=== PATIENT | female | born 1950 | race Caucasian/White ===

== ENCOUNTER 2016-12-25 19:39 | Emergency (ER) | payer MEDICARE ==
[2016-12-25] MEDS ORDERED: ONDANSETRON HCL IV 4 MG/2 ML VIAL IVP ONE (20:06)
[2016-12-25] MEDS: HYDROMORPHONE HCL 1 MG/ML CPJ IVP ONE ×2 (20:15→22:02)
[2016-12-25] MEDS ORDERED: Diph,Pert(Acell),Tet Vac 0.5 ML SYR IM ONE (21:30)
--- NOTE | 2016-12-25 21:30 | Emergency Department Record ---
History of Present Illness - General Chief Complaint: Fall Injury Stated Complaint: FALL Time Seen by Provider: 12/25/16 20:04 Source: Patient, Family, EMS Mode of Arrival: EMS Limitations: No limitations - History of Present Illness Initial Comments: pt tripped over dog and injured her r shoulder and hit her head. no loc. no numbness Onset/Timin -: Hour(s) Fall From: Standing When Fall Occurred: Just prior to arrival Fall Witnessed: Yes, by family Place Fall Occurred: Home Loss of Consciousness: None Prolonged Down Time?: No Symptoms Prior to Fall: None Location: Head, Chest, Back Location - Extremities: Right: Arm Severity: Severe Severity scale (1-10): 7 Quality: Sharp, Stabbing Context: Tripped/slipped Associated Symptoms: Headache - [place] Coma Scale Eye Response: (4) Open spontaneously Motor Response: (6) Obeys commands Verbal Response: (5) Oriented Domenic Total: 15 - Related Data Previous Rx's Medication Instructions Recorded Hydrocodone/Acetaminophen [[place] 1 tab PO Q6H PRN #10 tab 12/25/16 5mg/325mg] Allergies Allergy/AdvReac Type Severity Reaction Status Date / Time infliximab [From REMICADE] Allergy Unknown ANAPHYLAXIS Unverified 09/27/16 13:56 meperidine Allergy Unknown ANAPHYLAXIS Unverified 09/27/16 13:56 pantoprazole Allergy Unknown HIVES Unverified 09/27/16 13:56 Penicillins [PENICILLINS] Allergy Unknown ANAPHYLAXIS Unverified 09/27/16 13:56 prochlorperazine Allergy Unknown loss of Unverified 09/27/16 13:56 muscle control Proton Pump Inhibitors Allergy Unknown HIVES Unverified 09/27/16 13:56 tramadol HCl [From ULTRAM] Allergy Unknown hallucinati Unverified 09/27/16 13:56 ons Travel Screening - Travel/Exposure Within Last 30 Days Have you traveled within the last 30 days?: No - Travel/Exposure Within Last Year Have you traveled outside the [place] in the last year?: No - Additonal Travel Details Have you been exposed to anyone with a communicable illness?: No Review of Systems Reviewed: No additional complaints except as noted below Constitutional: Reports: As per HPI. Denies: Chills, Fever, Malaise, Night sweats, Weakness, Weight change Eyes: Reports: As per HPI. Denies: Eye discharge, Eye pain, Photophobia, Vision change ENT: Reports: As per HPI. Denies: Congestion, Dental pain, Ear pain, Epistaxis , Hearing loss, Throat pain Respiratory: Reports: As per HPI. Denies: Cough, Dyspnea, Hemoptysis, Stridor, Wheezes Cardiovascular: Reports: As per HPI. Denies: Arrhythmia, Chest pain, Dyspnea on exertion, Edema, Murmurs, Orthopnea, Palpitations, Paroxysmal nocturnal dyspnea, Rheumatic Fever, Syncope Endocrine: Reports: As per HPI. Denies: Fatigue, Heat or cold intolerance, Polydipsia, Polyuria Gastrointestinal: Reports: As per HPI. Denies: Abdominal pain, Constipation, Diarrhea, Hematemesis, Hematochezia, Melena, Nausea, Vomiting Genitourinary: Reports: As per HPI. Denies: Abnormal menses, Discharge, Dyspareunia, Dysuria, Frequency, Hematuria, Incontinence, Retention, Urgency Musculoskeletal: Reports: As per HPI. Denies: Arthralgia, Back pain, Gout, Joint swelling, Myalgia, Neck pain Skin: Reports: As per HPI. Denies: Bruising, Change in color, Change in hair/ nails, Lesions, Pruritus, Rash Neurological: Reports: As per HPI. Denies: Abnormal gait, Confusion, Headache, Numbness, Paresthesias, Seizure, Tingling, Tremors, Vertigo, Weakness Psychiatric: Reports: As per HPI. Denies: Anxiety, Auditory hallucinations, Depression, Homicidal thoughts, Suicidal thoughts, Visual hallucinations Hematological/Lymphatic: Reports: As per HPI. Denies: Anemia, Blood Clots, Easy bleeding, Easy bruising, Swollen glands Past Medical History - SOCIAL HISTORY Smoking Status: Former smoker - RESPIRATORY Hx Respiratory Disorders: Yes Hx Asthma: Yes Hx Bronchitis: Yes Hx COPD: Yes Hx Dyspnea: Yes Hx Pneumonia: Yes Hx Pulmonary Embolism: No Hx Sleep Apnea: Yes Hx Tuberculosis: No Hx of CPAP: Yes - CARDIOVASCULAR Hx Cardio Disorders: No Hx Hypertension: Yes - NEURO Hx Neuro Disorders: Yes Hx Headaches: Yes - GI Hx GI Disorders: Yes Hx Crohn's Disease: Yes Hx GI Bleed: Yes Hx Rectal Bleeding: Yes Hx Ulcer: Yes - Hx Genitourinary Disorders: No - ENDOCRINE Hx Endocrine Disorders: Yes Hx Diabetes: Yes (takes po meds) Hx Thyroid Disease: No - MUSCULOSKELETAL Hx Musculoskeletal Disorders: Yes Hx Arthritis: Yes Hx Fibromyalgia: Yes Hx Musculoskeletal Disease: Yes Comment:: knees and hips bad - PSYCH Hx Psych Problems: Yes Hx Anxiety: Yes Hx Depression: Yes - HEMATOLOGY/ONCOLOGY Hx Hematology/Oncology Disorders: No Family Medical History Any Significant Family History?: Yes Hx Cancer: Mother, Brother/Sister, Grandparents Hx Heart Disease: Father Hx Resp Disorders: Brother/Sister, Grandparents Physical Exam - General General Appearance: Alert, Oriented x3, Cooperative, Moderate distress - Head Head exam: Normal inspection Image of Face/Head: 1 - 1.5 cm laceration - Eye Eye exam: Normal appearance, PERRL, EOMI Pupils: Normal accommodation - ENT ENT exam: Normal exam, Mucous membranes moist, Normal external ear exam, Normal orophraynx, TM's normal bilaterally Ear exam: Normal external inspection. negative: External canal tenderness Nasal Exam: Normal inspection. negative: Discharge, Sinus tenderness Mouth exam: Normal external inspection, Tongue normal Teeth exam: Normal inspection. negative: Dental caries Throat exam: Normal inspection. negative: Tonsillar erythema, Tonsillar exudate - Neck Neck exam: Normal inspection, Full ROM. negative: Tenderness - Respiratory Respiratory exam: Normal lung sounds bilaterally. negative: Respiratory distress - Cardiovascular Cardiovascular Exam: Regular rate, Normal rhythm, Normal heart sounds - GI/Abdominal GI/Abdominal exam: Soft, Normal bowel sounds. negative: Tenderness - Rectal Rectal exam: Deferred - exam: Deferred - Extremities Extremities exam: Normal inspection, Normal capillary refill, Tenderness. negative: Full ROM Image of Full Body: 1 - tender 2 - 1.5 cm laceration - Back Back exam: Reports: Normal inspection, Full ROM. Denies: Muscle spasm, Rash noted, Tenderness - Neurological Neurological exam: Alert, CN II-XII intact, Normal gait, Oriented X3 - Psychiatric Psychiatric exam: Normal affect, Normal mood - Skin Skin exam: Dry, Intact, Normal color, Warm Course Vital Signs 12/25/16 12/25/16 20:16 20:50 Pulse Rate [ 83 76 Pulse Ox Probe] Respiratory 20 20 Rate Blood Pressure 162/71 141/74 [Left Arm] Pulse Ox 97 97 - Reevaluation(s) Reevaluation #1: 12/25/16 21:30 d/w dr thompson who will see pt on friday Disposition Disposition: Discharge Clinical Impression: Laceration Fracture of humeral head Qualifiers: Encounter type: initial encounter Fracture type: closed Laterality: right Qualified Code(s): S42.291A - Other displaced fracture of upper end of right humerus, initial encounter for closed fracture Disposition: Home, Self-Care Condition: (1) Good Instructions: Fall Prevention for Older Adults (ED), Arm Fracture in Adults (ED ), Laceration (ED) Additional Instructions: suture out in 6 days. return sooner if worse. ice and elevation. follow up friday with dr thompson on friday without fail Prescriptions: Hydrocodone/Acetaminophen [[place] 5mg/325mg] 1 tab PO Q6H PRN #10 tab PRN Reason: Pain - General Referrals: RHINA THOMPSON [DOCTOR OF OSTEOPATH] - [facility] [Provider Group] Forms: Patient Portal Access Laceration - Other - Time Out Informed consent:: Informed consent obtained Confirmed first & last name, , procedure, correct site?: Yes - Location Location of laceration:: Right Laceration - Head - Time Out Informed consent:: Informed consent obtained Confirmed first & last name, , procedure, correct site?: Yes Start Date: 12/25/16 Start Time: 21:47 - Location Location of laceration:: Right Laceration located on:: Face Length of laceration:: 1.5 Length of laceration:: cm Face/Head: 1 - 1.5cm - Clean and Prep Laceration cleaning method:: Cleansed, Copious Irrigation Laceration cleaning agent:: Normal Saline - Topical Anesthetic Lidocaine dose:: 1 mL Lidocaine used:: 1% Bupivicaine dose:: 1 mL EMLA cream used?: No - Medication Medicated for procedure?: Yes Medication(s) administered:: Other Medication - Procedural Detail Foreign body in the wound?: No Undermining was preformed?: No Stent applied?: No [place] applied?: No (2 simple interrupted sutures w 6.0 ethilon)
== END 2016-12-25 22:10 | disposition home or self-care (01) ==
LOC: ER 19:39
DX: S42.291A Other displaced fracture of upper end of right humerus, initial encounter for closed fracture (principal); S01.81XA Laceration without foreign body of other part of head, initial encounter; R51 Headache; W01.0XXA Fall on same level from slipping, tripping and stumbling without subsequent striking against object, initial encounter; Y92.009 Unspecified place in unspecified non-institutional (private) residence as the place of occurrence of the external cause
CPT/HCPCS: 90715; 96374; 96376; 99284; J1170

== ENCOUNTER 2017-03-28 07:06 | Emergency (ER) | payer MEDICARE ==
[2017-03-28] MEDS ORDERED: HYDROCODONE/APAP 7.5/325MG TABLET PO ONE (07:22)
[2017-03-28] MEDS ORDERED: CLINDAMYCIN 150 MG CAP PO ONE (07:22)
--- NOTE | 2017-03-28 07:34 | Emergency Department Record ---
History of Present Illness - General Chief complaint: ENT Stated complaint: LEFT EAR PAIN Time Seen by Provider: 03/28/17 07:21 Source: Patient Mode of Arrival: Ambulatory Limitations: No limitations - History of Present Illness Initial comments: 66 yo female presents with left ear pain, drainage and this morning blood. She has allergies and felt ear pressure the last few days. When she awoke this morning there was blood on the bed sheets. No fevers. No headache. No dizziness. No NV. No significant cough. MD complaint: Ear pain Onset/Timin -: Days(s) Location: L ear Severity: Severe Severity scale (1-10): 10 Quality: Sharp, Other Consistency: Constant Improves with: None Worsens with: None Associated Symptoms: Discharge from ear - Related Data Previous Rx's Medication Instructions Recorded Hydrocodone/Acetaminophen [[place] 1 tab PO Q6H PRN #10 tab 12/25/16 5mg/325mg] Clindamycin HCl 300 mg PO Q6H #28 03/28/17 Hydrocodone/Acetaminophen [[place] 1 each PO Q6H #12 tablet 03/28/17 5-325 Tablet] Allergies Allergy/AdvReac Type Severity Reaction Status Date / Time infliximab [From REMICADE] Allergy Unknown ANAPHYLAXIS Unverified 09/27/16 13:56 meperidine Allergy Unknown ANAPHYLAXIS Unverified 09/27/16 13:56 pantoprazole Allergy Unknown HIVES Unverified 09/27/16 13:56 Penicillins [PENICILLINS] Allergy Unknown ANAPHYLAXIS Unverified 09/27/16 13:56 prochlorperazine Allergy Unknown loss of Unverified 09/27/16 13:56 muscle control Proton Pump Inhibitors Allergy Unknown HIVES Unverified 09/27/16 13:56 tramadol HCl [From ULTRAM] Allergy Unknown hallucinati Unverified 09/27/16 13:56 ons Travel Screening - Travel/Exposure Within Last 30 Days Have you traveled within the last 30 days?: No Review of Systems Constitutional: Denies: Chills, Fever, Weakness Eyes: Denies: Eye discharge, Vision change ENT: Reports: Congestion, Ear pain. Denies: Epistaxis, Hearing loss, Throat pain Respiratory: Denies: Cough, Dyspnea Cardiovascular: Denies: Chest pain, Syncope Endocrine: Denies: Fatigue Gastrointestinal: Denies: Abdominal pain, Nausea, Vomiting Genitourinary: Denies: Dysuria, Urgency Musculoskeletal: Denies: Arthralgia, Back pain, Myalgia Skin: Denies: Bruising, Change in color, Rash Neurological: Denies: Headache, Numbness, Paresthesias Psychiatric: Denies: Anxiety Hematological/Lymphatic: Denies: Easy bleeding, Easy bruising, Swollen glands Past Medical History - SOCIAL HISTORY Smoking Status: Former smoker Alcohol Use: None Drug Use: None - RESPIRATORY Hx Respiratory Disorders: Yes Hx Asthma: Yes Hx Bronchitis: Yes Hx COPD: Yes Hx Dyspnea: Yes Hx Pneumonia: Yes Hx Pulmonary Embolism: No Hx Sleep Apnea: Yes Hx Tuberculosis: No Hx of CPAP: Yes - CARDIOVASCULAR Hx Cardio Disorders: No Hx Hypertension: Yes - NEURO Hx Neuro Disorders: Yes Hx Headaches: Yes - GI Hx GI Disorders: Yes Hx Crohn's Disease: Yes Hx GI Bleed: Yes Hx Rectal Bleeding: Yes Hx Ulcer: Yes - Hx Genitourinary Disorders: No - ENDOCRINE Hx Endocrine Disorders: Yes Hx Diabetes: Yes (takes po meds) Hx Thyroid Disease: No - MUSCULOSKELETAL Hx Musculoskeletal Disorders: Yes Hx Arthritis: Yes Hx Fibromyalgia: Yes Hx Musculoskeletal Disease: Yes Comment:: knees and hips bad - PSYCH Hx Psych Problems: Yes Hx Anxiety: Yes Hx Depression: Yes - HEMATOLOGY/ONCOLOGY Hx Hematology/Oncology Disorders: No Family Medical History Any Significant Family History?: Yes Hx Cancer: Mother, Brother/Sister, Grandparents Hx Heart Disease: Father Hx Resp Disorders: Brother/Sister, Grandparents Physical Exam - General General Appearance: Alert, Oriented x3, Cooperative, No acute distress Limitations: No limitations - Head Head exam: Normal inspection - Eye Eye exam: Normal appearance, PERRL. negative: Conjunctival injection, Periorbital swelling - ENT ENT exam: Mucous membranes moist, Normal orophraynx. negative: TM's normal bilaterally (Left TM with restration, small amount of blood in the canal. No visible pus draining, no visible perforation but likely given the blood) Ear exam: negative: Auricular hematoma, Auricular trauma, External canal tenderness Nasal Exam: Normal inspection. negative: Discharge, Sinus tenderness Mouth exam: Normal external inspection, Tongue normal Teeth exam: Normal inspection. negative: Dental caries - Neck Neck exam: Normal inspection, Full ROM. negative: Lymphadenopathy, Tenderness - Respiratory Respiratory exam: negative: Respiratory distress - Cardiovascular Cardiovascular Exam: Regular rate, Normal rhythm, Normal heart sounds - Rectal Rectal exam: Deferred - exam: Deferred - Extremities Extremities exam: Normal inspection - Back Back exam: Reports: Normal inspection - Neurological Neurological exam: Alert, Normal gait, Oriented X3, Reflexes normal - Psychiatric Psychiatric exam: Normal affect, Normal mood. negative: Agitated, Anxious - Skin Skin exam: Dry, Intact, Normal color, Warm Course Vital Signs 03/28/17 07:10 Temperature 97.9 F Pulse Rate 89 Respiratory 22 Rate Blood Pressure 174/82 Pulse Ox 98 - Reevaluation(s) Reevaluation #1: The patient likely has an OM with perforation She has seen ENT in the past and was encouraged to call today Clindamycin provided in the ED 03/28/17 07:26 Disposition Disposition: Discharge Clinical Impression: Otitis media, acute with perforation of eardrum Qualifiers: Laterality: left Recurrence: not specified as recurrent Qualified Code(s): H66.012 - Acute suppurative otitis media with spontaneous rupture of ear drum, left ear Disposition: Home, Self-Care Condition: (1) Good Instructions: Otitis Media (ED) Additional Instructions: Avoid placing Qtips in the ear Return if you have fever, uncontrolled pain or any new concerns Clindamycin three times daily for 7 days Call your ENT today to schedule close follow up to ensure the healing of the left ear Prescriptions: Clindamycin HCl 300 mg PO Q6H #28 Hydrocodone/Acetaminophen [[place] 5-325 Tablet] 1 each PO Q6H #12 tablet Forms: Patient Portal Access Time of Disposition: 07:37
== END 2017-03-28 07:46 | disposition home or self-care (01) ==
LOC: ER 07:06
DX: H66.012 Acute suppurative otitis media with spontaneous rupture of ear drum, left ear (principal); J44.9 Chronic obstructive pulmonary disease, unspecified; I10 Essential (primary) hypertension
CPT/HCPCS: 99282

== ENCOUNTER 2018-07-27 15:47 | Inpatient (IN) | payer MEDICARE, OTHER ==
[2018-07-27] MEDS ORDERED: CLINDAMYCIN 600MG/50ML PREMIX 600 MG/50 ML BAG IVPB ONE (15:54)
--- NOTE | 2018-07-27 16:03 | Emergency Department Record ---
History of Present Illness - General Chief complaint: Extremity Problem Stated complaint: FEVER,CHILLS,LT LEG SWOLLEN/PAIN Time Seen by Provider: 07/27/18 15:50 Source: Patient Mode of Arrival: Ambulatory Limitations: No limitations - History of Present Illness Initial comments: 67 yo female presents with redness and swelling to the right lower leg. The redness started in the ankle area and now has spread up to the proximal right lower leg. She has psoriasis with some scabbed areas on the leg as well. She initially developed a fever of 103 yesterday. The fever comes down with Ibuprofen. She has had cellulitis in the past. PCP is the [facility] MD Complaint: Extremity pain, Extremity swelling -: Days(s) (1) Location: Right -: Yes Fever, Yes Myalgia Radiation: Distal Quality: Aching Consistency: Constant Improves with: Elevation Worsens with: Palpation, Walking Associated Symptoms: Fever, Myalgias - Related Data Allergies Allergy/AdvReac Type Severity Reaction Status Date / Time infliximab [From REMICADE] Allergy Unknown ANAPHYLAXIS Unverified 02/20/18 15:40 meperidine Allergy Unknown ANAPHYLAXIS Unverified 02/20/18 15:40 pantoprazole Allergy Unknown HIVES Unverified 02/20/18 15:40 Penicillins [PENICILLINS] Allergy Unknown ANAPHYLAXIS Unverified 02/20/18 15:40 prochlorperazine Allergy Unknown loss of Unverified 02/20/18 15:40 muscle control Proton Pump Inhibitors Allergy Unknown HIVES Unverified 02/20/18 15:40 tramadol HCl [From ULTRAM] Allergy Unknown hallucinati Unverified 02/20/18 15:40 ons Review of Systems Constitutional: Reports: Chills, Fever. Denies: Malaise, Weakness Eyes: Denies: Eye discharge, Photophobia ENT: Denies: Congestion, Throat pain Respiratory: Denies: Cough, Dyspnea Cardiovascular: Denies: Chest pain, Syncope Endocrine: Denies: Fatigue Gastrointestinal: Denies: Abdominal pain, Diarrhea, Nausea, Vomiting Genitourinary: Denies: Dysuria, Urgency Musculoskeletal: Reports: Myalgia Skin: Reports: Change in color, Rash. Denies: Bruising Neurological: Denies: Headache Psychiatric: Denies: Anxiety Hematological/Lymphatic: Denies: Blood Clots, Easy bleeding, Easy bruising, Swollen glands Past Medical History - SOCIAL HISTORY Smoking Status: Former smoker Drug Use: None - RESPIRATORY Hx Respiratory Disorders: Yes Hx Asthma: Yes Hx Bronchitis: Yes Hx COPD: Yes Hx Dyspnea: Yes Hx Pneumonia: Yes Hx Pulmonary Embolism: No Hx Sleep Apnea: Yes Hx Tuberculosis: No Hx of CPAP: Yes - CARDIOVASCULAR Hx Cardio Disorders: No Hx Hypertension: Yes - NEURO Hx Neuro Disorders: Yes Hx Headaches: Yes - GI Hx GI Disorders: Yes Hx Crohn's Disease: Yes Hx GI Bleed: Yes Hx Rectal Bleeding: Yes Hx Ulcer: Yes - Hx Genitourinary Disorders: No - ENDOCRINE Hx Endocrine Disorders: Yes Hx Diabetes: Yes (takes po meds) Hx Thyroid Disease: No - MUSCULOSKELETAL Hx Musculoskeletal Disorders: Yes Hx Arthritis: Yes Hx Fibromyalgia: Yes Hx Musculoskeletal Disease: Yes Comment:: knees and hips bad - PSYCH Hx Psych Problems: Yes Hx Anxiety: Yes Hx Depression: Yes - HEMATOLOGY/ONCOLOGY Hx Hematology/Oncology Disorders: No Family Medical History Hx Cancer: Mother, Brother/Sister, Grandparents Hx Heart Disease: Father Hx Resp Disorders: Brother/Sister, Grandparents Physical Exam - General General Appearance: Alert, Oriented x3, Cooperative, No acute distress Limitations: No limitations - Head Head exam: Atraumatic, Normal inspection - Eye Eye exam: Normal appearance. negative: Conjunctival injection, Scleral icterus - ENT ENT exam: Normal exam, Mucous membranes moist Ear exam: Normal external inspection Nasal Exam: Normal inspection Mouth exam: Normal external inspection - Neck Neck exam: Normal inspection - Respiratory Respiratory exam: Decreased breath sounds. negative: Accessory muscle use, Respiratory distress, Rhonchi, Stridor, Wheezes - Cardiovascular Cardiovascular Exam: Normal rhythm, Normal heart sounds, Tachycardia - GI/Abdominal GI/Abdominal exam: Soft. negative: Tenderness - Rectal Rectal exam: Deferred - exam: Deferred - Extremities Extremities exam: Calf tenderness, Full ROM, Normal capillary refill, Pedal edema, Tenderness. negative: Normal inspection, Joint swelling Image of Full Body: 1 - erythema and warmth, most intense medial right ankle and more faint the more proximal - Back Back exam: Reports: Normal inspection. Denies: CVA tenderness (R), CVA tenderness (L) - Neurological Neurological exam: Alert, Oriented X3 - Psychiatric Psychiatric exam: Normal affect, Normal mood - Skin Skin exam: Erythema, Rash Course - Reevaluation(s) Reevaluation #1: The CBC was reviewed No acute changes The CRP is elevated at 3.3 07/27/18 16:45 07/27/18 16:45 No acute changes on the CMP 07/27/18 16:48 The cellulitis was marked The doppler was negative for DVT I SW Dr Fitzgerald regarding admission for IV antibiotics Medical Decision Making - Lab Data Result diagrams: 07/27/18 16:03 07/27/18 16:03 Disposition Disposition: Admit Clinical Impression: Cellulitis Qualifiers: Site of cellulitis: unspecified site Qualified Code(s): L03.90 - Cellulitis, unspecified Disposition: Still a Patient at [facility] Decision to Admit: Admit from ER Decision to Admit Date: 07/27/18 Decision to Admit Time: 16:48 Condition: (1) Good Forms: Patient Portal Access Time of Disposition: 16:48 Quality - Quality Measures Quality Measures: N/A - Blood Pressure Screening Does Patient Have Any of the Following: Active Dx of HTN Blood Pressure Classification: Pre-Hypertensive BP Reading Systolic Measurement: 154 Diastolic Measurement: 86 Screening for High Blood Pressure: Patient Exclusion, Hx of HTN [[id number]]
[2018-07-27] MEDS ORDERED: HYDROCODONE/APAP 7.5/325MG TABLET PO ONE (16:11)
[2018-07-27 16:16] LABS: BASO % 0.2 % (0-6); EOS % 2.3 % (0-6); GRAN % 74.2 % (47-80); HEMATOCRIT 33.6 % (35.0-47.0); HEMOGLOBIN 10.9 gm/dl (11.6-16.0); LYMPH % 8.8 % (16-45); MEAN CELL VOLUME 85.3 fl (81-97); MEAN CORPUSCULAR HGB CONC 32.4 g/dl (32-36); MEAN PLATELET VOLUME 9.6 fl (7.4-10.4); MONO % 14.5 % (0-9); RED BLOOD COUNT 3.94 M/uL (3.80-5.40); WHITE BLOOD COUNT W/O DIFF 5.2 K/uL (4.2-12.2)
[2018-07-27 16:24] LABS: BLOOD UREA NITROGEN 8 mg/dL (8-23); CREATININE 0.5 mg/dL (0.5-0.9); EST GLOMERULAR FILTRATION RATE > 60 mL/min
[2018-07-27 16:25] LABS: TOTAL PROTEIN 7.7 g/dL (6.6-8.7)
[2018-07-27 16:27] LABS: GLUCOSE,RANDOM 125 mg/dL (74-109)
[2018-07-27 16:28] LABS: MEAN CORPUSCULAR HEMOGLOBIN 27.6 pg (27-33)
[2018-07-27 16:29] LABS: PLATELET COUNT 89 K/uL (130-400)
[2018-07-27 16:30] LABS: ALB/GLOB RATIO 0.8 (1.1-1.8); ALBUMIN 3.4 g/dL (4.0-5.0); ALKALINE PHOSPHATASE 117 U/L (35-104); ALT/SGPT 19 U/L (<33); AST/SGOT 49 U/L (10.0-35.0); C-REACTIVE PROTEIN 3.32 mg/dL (<0.5)
[2018-07-27 16:53] LABS: ERYTHROCYTE SEDIMENTATION RATE 54 mm/hr (0-30)
[2018-07-27] MEDS ORDERED: Non-Formulary MISC (Lisinopril/Hydrochlorothiazide [Lisinopril-Hctz 20-25 Mg Tab] 1 TAB) PO SCH (17:18)
[2018-07-27] MEDS ORDERED: ALBUTEROL SULFATE (0.083%) 2.5 MG/3 ML NEB INH PRN (17:18)
[2018-07-27] MEDS ORDERED: DICLOFENAC SODIUM 4 GM TP PRN (17:18)
[2018-07-27] MEDS ORDERED: IPRATROPIUM/ALBUTEROL (0.5MG/3MG) NEB INH PRN (17:18)
[2018-07-27] MEDS ORDERED: HYDROXYZINE PAMOATE 25 MG CAPSULE PO PRN (17:18)
[2018-07-27] MEDS ORDERED: CLINDAMYCIN 600MG/50ML PREMIX 600 MG/50 ML BAG IVPB SCH (17:18)
[2018-07-27] MEDS ORDERED: AMLODIPINE BESYLATE 5MG TAB PO SCH ×2 (18:00→21:00)
[2018-07-27] MEDS: HYDROCODONE/APAP 5/325MG TABLET PO PRN ×2 (18:26→23:39)
[2018-07-27] MEDS: CLINDAMYCIN 600MG/50ML PREMIX 600 MG/50 ML BAG IVPB SCH (23:40)
[2018-07-28] MEDS: ONDANSETRON HCL IV 4 MG/2 ML VIAL IVP PRN ×3 (03:55→22:15)
[2018-07-28] MEDS: IBUPROFEN 400 MG TABLET PO PRN (04:38)
[2018-07-28] MEDS ORDERED: LISINOPRIL 20 MG TABLET PO SCH ×2 (06:00→10:00)
--- NOTE | 2018-07-28 07:31 | US VENOUS DOPPLER REPORT ---
EXAM: EMERGENCY VENOUS DOPPLER ULTRASOUND OF THE RIGHT LOWER EXTREMITY HISTORY: PATIENT WOKE UP WITH FEVER, CHILLS, RIGHT ANKLE SWELLING AND PAIN, POSSIBLE DVT. TECHNIQUE: Venous Doppler ultrasound of the right lower extremity was performed with the routine venous anatomy evaluated from the level of the external iliac vein in the right inguinal region down through the calf. Color flow and spectral analysis was utilized, and supplemented with compression and flow augmentation maneuvers. Comparison: Venous Doppler ultrasound of the right lower extremity dated . FINDINGS: The venous Doppler ultrasound of the right lower extremity appears negative. Flow is seen throughout with color flow and spectral analysis Doppler. Compression and flow augmentation evident as well. No DVT identified. IMPRESSION: NEGATIVE VENOUS DOPPLER ULTRASOUND OF THE RIGHT LOWER EXTREMITY WITH NO DVT IDENTIFIED. JOB NUMBER: [id number] [facility]
[2018-07-28] MEDS: HYDROCODONE/APAP 5/325MG TABLET PO PRN (08:06)
[2018-07-28] MEDS: CLINDAMYCIN 600MG/50ML PREMIX 600 MG/50 ML BAG IVPB SCH (08:07)
[2018-07-28] MEDS ORDERED: AMLODIPINE BESYLATE 5MG TAB PO SCH (10:00)
[2018-07-28] MEDS: Non-Formulary MISC (Omeprazole [Omeprazole] 40 MG) PO SCH (10:51)
[2018-07-28] MEDS: FLUTICASONE PROPIONATE 50MCG NASAL 16 GM BTL SCH (11:10)
[2018-07-28] MEDS: ENOXAPARIN 40 MG/0.4 ML SYR SC SCH (11:11)
[2018-07-28] MEDS: VANCOMYCIN HCL 1,000 MG in DEXTROSE 5 % IN WATER 250 ML IVPB SCH ×4 (11:12→23:02)
[2018-07-28] MEDS: ONDANSETRON 4 MG ODT TABLET SL PRN (11:12)
--- NOTE | 2018-07-28 11:22 | History & Physical ---
History of Present Illness - Date of Service Date of Service for History & Physical: 07/28/18 - History of Present Illness Admitting Diagnosis: Cellulitis History of Present Illness: Temitope Jimenez is a 67 y.o. female who presented to ED on 07/27/2018 with c/o redness and swelling to the RLE. Pt reported that chills started on Friday, chills and fever on Friday07/26/2018 and then redness in ankle and proximal right lower leg with fever of 103 on Friday07/27/2018 which brought her to the ED. Pt reports that she does have psoriasis and a hx of cellulitis in the past which required IV Vanco home infusions for 1 week. PMHx includes Type II DM, HTN, Crohn's, COPD and major depressive d/o. 07/27/2018 Venous Doppler RLE = Negative C-reactive Protein 3.32 ESR 54 Blood Cultures pending 07/28/2018 Vitals: 99.7, 104, 127/69, 18, 97% on RA. Pt reports that the she doesn't feel that the cellulitis is worsening since starting the IV Clindamycin. Although she doesn't feel that it is improving either. Pt states that main area of redness and heat on proximal ankle hasn't decreased at all. Reports that her pain is fairly well controlled with [place] and Motrin but she is not comfortable enough to get any sleep. C/o nausea d/t pain medications and antibiotics, has been taking IV Zofran which allows her to get fluids and food down. Denies constipation, states she has Crohn's so she is rarely ever constipated, even with narcotic pain medication use. Travel Screening - Travel/Exposure Within Last 30 Days Have you traveled within the last 30 days?: No - Travel/Exposure Within Last Year Have you traveled outside the [place] in the last year?: No - Additonal Travel Details Have you been exposed to anyone with a communicable illness?: No - Travel Symptoms Symptom Screening: None Review of Systems Reviewed: No additional complaints except as noted below Constitutional: Reports: Fever. Denies: Malaise, Weakness Eyes: Denies: Eye discharge, Photophobia ENT: Denies: Congestion, Throat pain Respiratory: Denies: Cough, Dyspnea Cardiovascular: Denies: Chest pain, Syncope Endocrine: Reports: Fatigue Gastrointestinal: Reports: Nausea. Denies: Abdominal pain, Constipation, Vomiting Genitourinary: Denies: Dysuria, Urgency Musculoskeletal: Reports: Myalgia Skin: Reports: Change in color, Rash. Denies: Bruising Neurological: Denies: Headache Psychiatric: Denies: Anxiety Hematological/Lymphatic: Denies: Blood Clots, Easy bleeding, Easy bruising, Swollen glands Past Medical History - SOCIAL HISTORY Smoking Status: Former smoker - RESPIRATORY Hx Respiratory Disorders: Yes Hx Asthma: Yes Hx Bronchitis: Yes Hx COPD: Yes Hx Dyspnea: Yes Hx Pneumonia: Yes Hx Pulmonary Embolism: No Hx Sleep Apnea: Yes Hx Tuberculosis: No Hx of CPAP: Yes - CARDIOVASCULAR Hx Cardio Disorders: No Hx Hypertension: Yes - NEURO Hx Neuro Disorders: Yes Hx Headaches: Yes - GI Hx GI Disorders: Yes Hx Crohn's Disease: Yes Hx GI Bleed: Yes Hx Rectal Bleeding: Yes Hx Ulcer: Yes - Hx Genitourinary Disorders: No - ENDOCRINE Hx Endocrine Disorders: Yes Hx Diabetes: Yes (takes po meds) Hx Thyroid Disease: No - MUSCULOSKELETAL Hx Musculoskeletal Disorders: Yes Hx Arthritis: Yes Hx Fibromyalgia: Yes Hx Musculoskeletal Disease: Yes Comment:: knees and hips bad - PSYCH Hx Psych Problems: Yes Hx Anxiety: Yes Hx Depression: Yes - HEMATOLOGY/ONCOLOGY Hx Hematology/Oncology Disorders: No Family Medical History Any Significant Family History?: Yes Hx Cancer: Mother, Brother/Sister, Grandparents Hx Heart Disease: Father Hx Resp Disorders: Brother/Sister, Grandparents H&P Meds/Allergies - Allergies Allergies: Allergies Allergy/AdvReac Type Severity Reaction Status Date / Time infliximab [From REMICADE] Allergy Unknown ANAPHYLAXIS Unverified 02/20/18 15:40 meperidine Allergy Unknown ANAPHYLAXIS Unverified 02/20/18 15:40 pantoprazole Allergy Unknown HIVES Unverified 02/20/18 15:40 Penicillins [PENICILLINS] Allergy Unknown ANAPHYLAXIS Unverified 02/20/18 15:40 prochlorperazine Allergy Unknown loss of Unverified 02/20/18 15:40 muscle control Proton Pump Inhibitors Allergy Unknown HIVES Unverified 02/20/18 15:40 tramadol HCl [From ULTRAM] Allergy Unknown hallucinati Unverified 02/20/18 15:40 ons - Home Medications Home Medications Medication Instructions Recorded Confirmed Last Taken Albuterol Sulfate [Ventolin Hfa] 2 puff INH Q4H PRN 07/28/18 07/28/18 Unknown Fluticasone Propionate 2 spray NS DAILY 07/28/18 07/28/18 Unknown Hydroxyzine Pamoate 25 mg PO TID PRN 07/28/18 07/28/18 Unknown Lisinopril 40 mg PO DAILY 07/28/18 07/28/18 Unknown Montelukast Sodium 10 mg PO QHS 07/28/18 07/28/18 Unknown - Active Medications Active Medications: Current Medications Hydrocodone Bitart/Acetaminophen ([place] 7.5mg/325mg) 1 each PO Q6H PRN PRN Reason: PAIN - MOD TO SEVERE (5-10) Albuterol Sulfate () 2.5 mg INH RESP.Q4H.WA PRN PRN Reason: DIFFICULTY IN BREATHING Albuterol/Ipratropium (Duoneb) 3 ml INH RESP.Q6H PRN PRN Reason: WHEEZING Amlodipine Besylate (Norvasc) 10 mg PO 1800 [facility] Enoxaparin Sodium (Lovenox) 40 mg SC DAILY [facility] Fluticasone Propionate (Flonase) 2 spray NA DAILY [facility] Hydroxyzine Pamoate (Vistaril) 25 mg PO TID PRN PRN Reason: ANXIETY Vancomycin HCl 1,000 mg/ (Dextrose) 250 mls @ 250 mls/hr IVPB Q12HR [facility] Stop: 08/02/18 11:01 Vancomycin HCl 1,000 mg/ (Dextrose) 250 mls @ 250 mls/hr IVPB Q12H [facility] Stop: 08/02/18 23:01 Vancomycin HCl 1,000 mg/ (Dextrose) 250 mls @ 250 mls/hr IVPB NOW ONE Stop: 07/28/18 12:59 Ibuprofen (Motrin 400mg) 800 mg PO Q8H PRN PRN Reason: PAIN - MILD (1-4) Last Admin: 07/28/18 04:38 Dose: 800 mg Lisinopril (Zestril) 40 mg PO 0600 [facility] Montelukast Sodium (Singulair) 10 mg PO QHS [facility] Non-Formulary Medication (Omeprazole [Omeprazole]) 40 mg PO DAILYAC [facility] Last Admin: 07/28/18 10:51 Dose: Not Given Ondansetron HCl (Zofran) 4 mg IVP Q6H PRN PRN Reason: NAUSEA Last Admin: 07/28/18 03:55 Dose: 4 mg Ondansetron HCl (Zofran Odt) 4 mg SL Q6H PRN PRN Reason: NAUSEA/VOMITING Physical Exam - Vital Signs Vital Signs: Vital Signs - Last 24 Hrs Temp Pulse Pulse Resp BP BP Pulse Ox 07/28/18 09:45 97 07/28/18 06:11 99.7 F H 104 H 16 127/69 97 07/28/18 01:18 100.5 F H 94 H 18 130/80 98 07/27/18 17:56 94 H 16 07/27/18 17:18 98.1 F 94 H 18 146/83 100 07/27/18 15:53 98.2 F 107 H 24 154/86 99 - General General Appearance: Alert, Oriented x3, Cooperative, No acute distress Limitations: No limitations - Head Head exam: Atraumatic, Normal inspection - Eye Eye exam: Normal appearance. negative: Conjunctival injection, Scleral icterus - ENT ENT exam: Normal exam, Mucous membranes moist - Neck Neck exam: Normal inspection - Respiratory Respiratory exam: Normal lung sounds bilaterally. negative: Accessory muscle use, Respiratory distress, Rhonchi, Stridor, Wheezes - Cardiovascular Cardiovascular Exam: Normal rhythm, Normal heart sounds, Tachycardia Peripheral Pulses: 1+: Dorsalis Pedis (R) - GI/Abdominal GI/Abdominal exam: Soft, Normal bowel sounds. negative: Tenderness - Rectal Rectal exam: Deferred - exam: Deferred - Extremities Extremities exam: Calf tenderness, Full ROM, Normal capillary refill, Pedal edema, Tenderness (RLE). negative: Normal inspection, Joint swelling - Back Back exam: Reports: Normal inspection. Denies: CVA tenderness (R), CVA tenderness (L) - Neurological Neurological exam: Alert, Oriented X3 - Psychiatric Psychiatric exam: Normal affect, Normal mood - Skin Skin exam: Erythema, Rash Results - Labs Result Diagrams: 07/27/18 16:03 07/27/18 16:03 Labs Last 24 Hours: Laboratory Results - last 24 hr 07/27/18 07/27/18 16:03 16:03 WBC 5.2 RBC 3.94 Hgb 10.9 L Hct 33.6 L MCV 85.3 MCH 27.6 MCHC 32.4 RDW 17.0 H Plt Count 89 L MPV 9.6 Gran % 74.2 Lymphocytes % 8.8 L Monocytes % 14.5 H Eosinophils % 2.3 Basophils % 0.2 ESR 54 H Sodium 138 Potassium 3.5 Chloride 101 Carbon Dioxide 22.0 Anion Gap 15.0 BUN 8 Creatinine 0.5 Estimated GFR > 60 Random Glucose 125 H Calcium 8.8 Total Bilirubin 1.30 H AST 49 H ALT 19 Alkaline Phosphatase 117 H C-Reactive Protein 3.32 H Total Protein 7.7 Albumin 3.4 L Globulin 4.3 Albumin/Globulin Ratio 0.8 L - Imaging and Cardiology Venous US Status: Report reviewed VTE H&P Assessment - Risk for VTE Risk for VTE: Yes Risk Level: Moderate Risk Assessment Date: 07/28/18 Risk Assessment Time: 11:43 VTE Orders Placed or Will Be Placed: No VTE Reason for No Prophylaxis: Complication of Medical Care (platelet count on 07/27/18 = 89) Plan - Inpatient Certification Inpatient Certification: Admit to inpatient care: Based on my medical assessment, after consideration of patient's risk factors (age, co-morbidities and patient presenting symptoms and acuity), I expect that this patient will remain in the hospital greater than or equal to two midnights and that the services needed warrant inpatient care because: Patient Risk Factors: [Cellulitis, Age, multiple co-morbidities, recurrent cellulitis] Estimated length of stay: [48-72 hours] The patient may reasonably be expected to be discharged or transferred to a hospital within 96 hours after admission to [facility]. Services needed: [IV antibiotic therapy, pain control] Post hospital care (if known): [home] I certify that my determination is in accordance with my understanding of Medicare requirements for reasonable and necessary inpatient services. 07/28/18 11:53 - Detailed Diagnosis and Plan (1) Cellulitis Current Visit: Yes Status: Acute Qualifiers: Site of cellulitis: extremity Site of cellulitis of extremity: lower extremity Laterality: right Qualified Code(s): L03.115 - Cellulitis of right lower limb Base Code: L03.90 - CELLULITIS, UNSPECIFIED Priority: High Comment: 2017: -Erythema and Warmth regressed from original outlined margin on right posterior calf. Increased erythema and heat to right lateral malleolus. -Febrile 99.7, with Ibuprofen and [place] use. -WBC 5.2 and CRP 3.32 on 07/27/18 -Positive blood cultures = gram + cocci in clusters -D/C IV Clindamycin -Start IV Vancomycin for better coverage on gram + cocci in clusters, pharmacy to dose -Venous Doppler negative for DVT (2) Nausea Current Visit: Yes Status: Acute Base Code: R11.0 - NAUSEA Comment: 2017: -IVP Zofran q. 6 hours PRN -Ordered Zofran 4mg SL q. 6 hours PRN -Pt able to manage PO intake with zofran (3) Acute pain Current Visit: Yes Status: Acute Base Code: R52 - PAIN, UNSPECIFIED Comment: 07/28/2018 -Pt taking [place] 5/325mg q. 6 hours and Motrin 800mg q. 8 hours as needed with moderate improvement -Increase [place] to 7.5/325mg q. 6 hours PRN -Continue Motrin 800mg q. 8 hours as needed -Keep elevated (4) Full code status Current Visit: No Status: Acute Base Code: Z78.9 - OTHER SPECIFIED HEALTH STATUS Comment: 07/28/18: -Pt has full code status this admission (5) DVT prophylaxis Current Visit: Yes Status: Acute Base Code: [id number] - Comment: 07/28/2018: -Platelets 89 on 07/27/18 -No mobility concerns noted -Nursing to encourage ambulation and frequent position changes
[2018-07-28] MEDS ORDERED: VANCOMYCIN HCL 1,000 MG in DEXTROSE 5 % IN WATER 250 ML IVPB ONE ×2 (12:00)
[2018-07-28] MEDS: HYDROCODONE/APAP 7.5/325MG TABLET PO PRN (15:25)
[2018-07-28] MEDS: AMLODIPINE BESYLATE 5MG TAB PO SCH (18:35)
[2018-07-28] MEDS: MONTELUKAST SODIUM 10MG TABLET PO SCH (22:15)
[2018-07-29] MEDS: VANCOMYCIN HCL 1,000 MG in DEXTROSE 5 % IN WATER 250 ML IVPB SCH ×10 (00:16→22:59)
[2018-07-29] MEDS: HYDROCODONE/APAP 7.5/325MG TABLET PO PRN ×4 (00:16→23:05)
[2018-07-29] MEDS: HYDROXYZINE PAMOATE 25 MG CAPSULE PO PRN ×2 (00:27→23:20)
[2018-07-29] MEDS: Non-Formulary MISC (Omeprazole [Omeprazole] 40 MG) PO SCH (06:25)
[2018-07-29] MEDS: LISINOPRIL 20 MG TABLET PO SCH (06:32)
[2018-07-29 07:08] LABS: HEMOGLOBIN 9.5 gm/dl (11.6-16.0); MEAN CELL VOLUME 86.8 fl (81-97); MEAN CORPUSCULAR HEMOGLOBIN 26.6 pg (27-33); MEAN CORPUSCULAR HGB CONC 30.6 g/dl (32-36); MEAN PLATELET VOLUME 10.2 fl (7.4-10.4); PLATELET COUNT 80 K/uL (130-400); RED BLOOD COUNT 3.57 M/uL (3.80-5.40); RED CELL DISTRIBUTION WIDTH 17.1 % (11.5-14.5); WHITE BLOOD COUNT W/O DIFF 3.7 K/uL (4.2-12.2)
[2018-07-29 07:27] LABS: PLATELET ESTIMATE DECREASED (NORMAL)
[2018-07-29 07:28] LABS: HYPOCHROMIA 1+
[2018-07-29 07:30] LABS: ALB/GLOB RATIO 0.8 (1.1-1.8); ALBUMIN 3.1 g/dL (4.0-5.0); ALKALINE PHOSPHATASE 105 U/L (35-104); ALT/SGPT 16 U/L (<33); AST/SGOT 38 U/L (10.0-35.0); BLOOD UREA NITROGEN 10 mg/dL (8-23); CREATININE 0.6 mg/dL (0.5-0.9); EST GLOMERULAR FILTRATION RATE > 60 mL/min; GLUCOSE,RANDOM 108 mg/dL (74-109); TOTAL PROTEIN 7.1 g/dL (6.6-8.7)
[2018-07-29] MEDS: ONDANSETRON HCL IV 4 MG/2 ML VIAL IVP PRN (08:59)
[2018-07-29] MEDS: FLUTICASONE PROPIONATE 50MCG NASAL 16 GM BTL SCH (10:51)
[2018-07-29] MEDS: ENOXAPARIN 40 MG/0.4 ML SYR SC SCH (10:53)
[2018-07-29] MEDS: DIPHENHYDRAMINE HCL 50 MG/ML VIAL IVP PRN (11:51)
--- NOTE | 2018-07-29 12:39 | Physician Progress Note ---
Subjective - Date Date of Physician Progress Note: 07/29/18 - Subjective Subjective Comment: Pt reports that pain and redness have increased and she doesn't believe the Vanco is working. Pt reports itching and burning at IV site when Vanco is running. Reports pain at 9/10 after approximately 4 hours, cannot get comfortable. Concerned that she is going to get constipated with constant [place] use, even thought she has IBS, and requests Colace to be ordered. Reports that she has had cellulitis in her RLE in 2016. She started at [facility] and was transferred to [facility] for surgical evaluation and infectious disease consult. A review of the medical record from the hospitalization at [facility] in 2016 showed that pt had I&D of abscess, which was MSSA positive. Her IV antibiotics were changed from Vanco to Cefazolin and on d/c home, she was put on Doxycycline. Location: Right, Lower extremity Severity scale (1-10): 9 Quality: Burning, Constant Consistency: Constant, Getting worse Improves with: Medication Associated symptoms: Nausea/vomiting Objective - Vital Signs Vital Signs: Vital Signs - Last 24 Hrs Temp Pulse Pulse Resp BP Pulse Ox 07/29/18 10:50 88 16 97 07/29/18 06:33 87 127/81 07/29/18 00:00 98.8 F 86 18 151/72 98 07/28/18 20:00 90 18 07/28/18 16:00 98.1 F 90 18 127/64 100 - General General Appearance: Alert, Oriented x3, Cooperative, No acute distress Limitations: No limitations - Head Head exam: Atraumatic, Normal inspection - Eye Eye exam: Normal appearance. negative: Conjunctival injection, Scleral icterus - ENT ENT exam: Normal exam, Mucous membranes moist Ear exam: Normal external inspection Nasal Exam: Normal inspection Mouth exam: Normal external inspection - Neck Neck exam: Normal inspection - Respiratory Respiratory exam: Normal lung sounds bilaterally. negative: Accessory muscle use, Respiratory distress, Rhonchi, Stridor, Wheezes - Cardiovascular Cardiovascular Exam: Normal rhythm, Normal heart sounds, Tachycardia Peripheral Pulses: 1+: Dorsalis Pedis (R) - GI/Abdominal GI/Abdominal exam: Soft, Normal bowel sounds. negative: Tenderness - Rectal Rectal exam: Deferred - exam: Deferred - Extremities Extremities exam: Calf tenderness (RLE), Full ROM, Normal capillary refill, Pedal edema, Tenderness (RLE). negative: Normal inspection, Joint swelling - Back Back exam: Reports: Normal inspection. Denies: CVA tenderness (R), CVA tenderness (L) - Neurological Neurological exam: Alert, Oriented X3 - Psychiatric Psychiatric exam: Normal affect, Normal mood - Skin Skin exam: Erythema (RLE), Rash (RLE ), Warm (RLE) Type of lesion: negative: abrasion, Laceration Assessment and Plan - Assessment and Plan (1) Cellulitis Current Visit: Yes Status: Acute Qualifiers: Site of cellulitis: extremity Site of cellulitis of extremity: lower extremity Laterality: right Qualified Code(s): L03.115 - Cellulitis of right lower limb Base Code: L03.90 - CELLULITIS, UNSPECIFIED Priority: High Comment: 2017: -Erythema and Warmth extend beyond original outlined margin on RLE -Afebrile x 24 hours, but is routinely taking Motrin and [place] -Preliminary blood cultures = Gram + cocci in clusters, not final yet -C-Reactive Protein increased from 3.32 to 7.30 -WBC 5.2 to 3.7 -Continue IV Vancomycin at this time, will re-evaluate once blood cultures are finalized -IV Benadryl ordered to help with itching and burning d/t IV administration 07/28/2018: -Erythema and Warmth regressed from original outlined margin on right posterior calf. Increased erythema and heat to right lateral malleolus. -Febrile 99.7, with Ibuprofen and [place] use. -WBC 5.2 and CRP 3.32 on 07/27/18 -Positive blood cultures = gram + cocci in clusters -D/C IV Clindamycin -Start IV Vancomycin for better coverage on gram + cocci in clusters, pharmacy to dose -Venous Doppler negative for DVT (2) Nausea Current Visit: Yes Status: Acute Base Code: R11.0 - NAUSEA Comment: 2017: -Continue with IV Zofran q. 6 hours PRN -IV Benadryl ordered for Itching, may help with nausea control as well 07/28/2018: -IVP Zofran q. 6 hours PRN -Ordered Zofran 4mg SL q. 6 hours PRN -Pt able to manage PO intake with zofran (3) Acute pain Current Visit: Yes Status: Acute Base Code: R52 - PAIN, UNSPECIFIED Comment: 07/29/2018: -Increased frequency of [place] 7.5/325mg to q.4 hours PRN from q. 6 hours PRN -Continue Motrin 800mg q. 8 hours 07/28/2018 -Pt taking [place] 5/325mg q. 6 hours and Motrin 800mg q. 8 hours as needed with moderate improvement -Increase [place] to 7.5/325mg q. 6 hours PRN -Continue Motrin 800mg q. 8 hours as needed -Keep elevated (4) Full code status Current Visit: No Status: Acute Base Code: Z78.9 - OTHER SPECIFIED HEALTH STATUS Comment: 07/28/18: -Pt has full code status this admission (5) DVT prophylaxis Current Visit: Yes Status: Acute Base Code: [id number] - Comment: 07/29/18: -Platelets decreased to 80 on 07/29/18 -Will continue Lovenox daily with monitoring of platelets -Should platelets drop below 50, will stop Lovenox -Nursing to encourage ambulation and frequent position changes 07/28/2018: -Platelets 89 on 07/27/18 -No mobility concerns noted -Nursing to encourage ambulation and frequent position changes Results - Labs Result Diagrams: 07/29/18 06:23 07/29/18 06:23 Labs Last 24 Hours: Laboratory Results - last 24 hr 07/29/18 07/29/18 07/29/18 06:23 06:23 06:23 WBC 3.7 L RBC 3.57 L Hgb 9.5 L Hct 31.0 L MCV 86.8 MCH 26.6 L MCHC 30.6 L RDW 17.1 H Plt Count 80 L MPV 10.2 Neutrophils % 65.0 Band Neutrophils % 4.0 Eosinophils % Not Reportable Basophils % Not Reportable Lymphocytes 17.0 Monocytes 11.0 H Platelet Estimate Decreased Hypochromasia 1+ Eosinophil Count 3.0 Sodium 137 Potassium 4.0 Chloride 100 Carbon Dioxide 23.0 Anion Gap 14.0 BUN 10 Creatinine 0.6 Estimated GFR > 60 Random Glucose 108 Calcium 8.5 L Total Bilirubin 0.80 AST 38 H ALT 16 Alkaline Phosphatase 105 H C-Reactive Protein 7.30 H Total Protein 7.1 Albumin 3.1 L Globulin 4.0 Albumin/Globulin Ratio 0.8 L DVT/PE Assessment - Risk for VTE Risk for VTE: No Risk Level: Moderate Risk Assessment Date: 07/28/18 Risk Assessment Time: 11:43 VTE Orders Placed or Will Be Placed: No VTE Reason for No Prophylaxis: Complication of Medical Care (platelet count on 07/27/18 = 89) - Active Medicaitons Current Medications: Current Medications Hydrocodone Bitart/Acetaminophen ([place] 7.5mg/325mg) 1 each PO Q4H PRN PRN Reason: PAIN - MOD TO SEVERE (5-10) Albuterol Sulfate () 2.5 mg INH RESP.Q4H.WA PRN PRN Reason: DIFFICULTY IN BREATHING Albuterol/Ipratropium (Duoneb) 3 ml INH RESP.Q6H PRN PRN Reason: WHEEZING Amlodipine Besylate (Norvasc) 10 mg PO 1800 [facility] Last Admin: 07/28/18 18:35 Dose: 10 mg Diphenhydramine HCl (Benadryl) 25 mg IVP Q6H PRN PRN Reason: Itching Last Admin: 07/29/18 11:51 Dose: 25 mg Docusate Sodium (Colace) 200 mg PO DAILY [facility] Enoxaparin Sodium (Lovenox) 40 mg SC DAILY [facility] Last Admin: 07/29/18 10:53 Dose: 40 mg Fluticasone Propionate (Flonase) 2 spray NA DAILY [facility] Last Admin: 07/29/18 10:51 Dose: 2 spray Hydroxyzine Pamoate (Vistaril) 25 mg PO TID PRN PRN Reason: ANXIETY Last Admin: 07/29/18 00:27 Dose: 25 mg Vancomycin HCl 1,000 mg/ (Dextrose) 250 mls @ 250 mls/hr IVPB Q12HR [facility] Stop: 08/02/18 11:01 Last Admin: 07/29/18 10:54 Dose: 250 mls/hr Vancomycin HCl 1,000 mg/ (Dextrose) 250 mls @ 250 mls/hr IVPB Q12H [facility] Stop: 08/02/18 23:01 Last Infusion: 07/29/18 01:30 Dose: Infused Ibuprofen (Motrin 400mg) 800 mg PO Q8H PRN PRN Reason: PAIN - MILD (1-4) Last Admin: 07/28/18 04:38 Dose: 800 mg Lisinopril (Zestril) 40 mg PO 0600 [facility] Last Admin: 07/29/18 06:32 Dose: 40 mg Montelukast Sodium (Singulair) 10 mg PO QHS [facility] Last Admin: 07/28/18 22:15 Dose: 10 mg Non-Formulary Medication (Omeprazole [Omeprazole]) 40 mg PO DAILYAC [facility] Last Admin: 07/29/18 06:25 Dose: Not Given Ondansetron HCl (Zofran) 4 mg IVP Q6H PRN PRN Reason: NAUSEA Last Admin: 07/29/18 08:59 Dose: 4 mg Ondansetron HCl (Zofran Odt) 4 mg SL Q6H PRN PRN Reason: NAUSEA/VOMITING Last Admin: 07/28/18 11:12 Dose: 4 mg AMI Plan - Labs Result Diagrams: 07/29/18 06:23 07/29/18 06:23
[2018-07-29] MEDS: DOCUSATE SODIUM 100 MG CAPSULE PO SCH (15:57)
[2018-07-29] MEDS: AMLODIPINE BESYLATE 5MG TAB PO SCH (17:49)
[2018-07-29] MEDS: MONTELUKAST SODIUM 10MG TABLET PO SCH (22:57)
[2018-07-30] MEDS: VANCOMYCIN HCL 1,000 MG in DEXTROSE 5 % IN WATER 250 ML IVPB SCH ×6 (01:16→18:09)
[2018-07-30] MEDS: LISINOPRIL 20 MG TABLET PO SCH (06:32)
[2018-07-30] MEDS: HYDROXYZINE PAMOATE 25 MG CAPSULE PO PRN ×2 (06:33→23:30)
--- NOTE | 2018-07-30 09:39 | Physician Progress Note ---
Subjective - Date Date of Physician Progress Note: 07/30/18 - Subjective Subjective Comment: Patient's erythema and warmth is noticeably reduced compared to 07/29/18, and have regressed to be well within original margin again. Patient reports that her pain is manageable with medication, and while she can ambulate to the restroom on her own, she reports that walking on the leg is painful. She agrees to the plan to place a PICC line for prolonged vanco dosing. She also states that she has not had a bowel movement in two days and would like to continue with Colace at this time. She also states that her nausea is controlled with the current Zofran dosing regimen. Location: Right, Lower extremity Quality: Burning, Constant Consistency: Constant Improves with: Medication Objective - Vital Signs Vital Signs: Vital Signs - Last 24 Hrs Temp Pulse Pulse Resp BP Pulse Ox 07/30/18 09:19 97 07/30/18 06:00 98.8 F 81 18 141/68 07/29/18 20:00 98.1 F 77 20 142/65 99 07/29/18 14:00 98.7 F 80 22 129/58 99 07/29/18 10:50 88 16 97 - General General Appearance: Alert, Oriented x3, Cooperative, No acute distress Limitations: No limitations - Head Head exam: Atraumatic, Normal inspection - Eye Eye exam: Normal appearance. negative: Conjunctival injection, Scleral icterus - ENT ENT exam: Normal exam, Mucous membranes moist Ear exam: Normal external inspection Nasal Exam: Normal inspection Mouth exam: Normal external inspection - Neck Neck exam: Normal inspection - Respiratory Respiratory exam: Normal lung sounds bilaterally. negative: Accessory muscle use, Respiratory distress, Rhonchi, Stridor, Wheezes - Cardiovascular Cardiovascular Exam: Normal rhythm, Normal heart sounds, Tachycardia Peripheral Pulses: 1+: Dorsalis Pedis (R) - GI/Abdominal GI/Abdominal exam: Soft, Normal bowel sounds. negative: Tenderness - Rectal Rectal exam: Deferred - exam: Deferred - Extremities Extremities exam: Calf tenderness (RLE), Full ROM, Normal capillary refill, Pedal edema, Tenderness (RLE). negative: Normal inspection, Joint swelling - Back Back exam: Reports: Normal inspection. Denies: CVA tenderness (R), CVA tenderness (L) - Neurological Neurological exam: Alert, Oriented X3 - Psychiatric Psychiatric exam: Normal affect, Normal mood - Skin Skin exam: Erythema (RLE), Rash (RLE ), Warm (RLE) Type of lesion: negative: abrasion, Laceration Assessment and Plan - Assessment and Plan (1) Cellulitis Current Visit: Yes Status: Acute Qualifiers: Site of cellulitis: extremity Site of cellulitis of extremity: lower extremity Laterality: right Qualified Code(s): L03.115 - Cellulitis of right lower limb Base Code: L03.90 - CELLULITIS, UNSPECIFIED Priority: High Comment: 2017: -Erythema and warmth have regressed to within original outlined margin on RLE -Afebrile x 48 hours, but is routinely taking Motrin and Reader -Preliminary blood cultures = Gram + cocci in clusters, not final yet -CBC/CMP pending -Continue IV Vancomycin until PICC line can be placed -IV Benadryl to help with itching and burning d/t IV administration -Continue IV Vancomycin, will re-evaluate once cultures have finalized -PICC placement ordered 07/29/2018: -Erythema and Warmth extend beyond original outlined margin on RLE -Afebrile x 24 hours, but is routinely taking Motrin and Reader -Preliminary blood cultures = Gram + cocci in clusters, not final yet -C-Reactive Protein increased from 3.32 to 7.30 -WBC 5.2 to 3.7 -Continue IV Vancomycin at this time, will re-evaluate once blood cultures are finalized -IV Benadryl ordered to help with itching and burning d/t IV administration 07/28/2018: -Erythema and Warmth regressed from original outlined margin on right posterior calf. Increased erythema and heat to right lateral malleolus. -Febrile 99.7, with Ibuprofen and Reader use. -WBC 5.2 and CRP 3.32 on 07/27/18 -Positive blood cultures = gram + cocci in clusters -D/C IV Clindamycin -Start IV Vancomycin for better coverage on gram + cocci in clusters, pharmacy to dose -Venous Doppler negative for DVT (2) Nausea Current Visit: Yes Status: Acute Base Code: R11.0 - NAUSEA Comment: : -Continue with IV Zofran q. 6 hours PRN -IV Benadryl ordered for Itching, may help with nausea control as well -Patient states symptoms are currently controlled with medication 07/29/2018: -Continue with IV Zofran q. 6 hours PRN -IV Benadryl ordered for Itching, may help with nausea control as well 07/28/2018: -IVP Zofran q. 6 hours PRN -Ordered Zofran 4mg SL q. 6 hours PRN -Pt able to manage PO intake with zofran (3) Acute pain Current Visit: Yes Status: Acute Base Code: R52 - PAIN, UNSPECIFIED Comment: 07/30/18: -Continue Reader 7.5/325mg to q.4 hours PRN from q. 6 hours PRN -Continue Motrin 800mg q. 8 hours -Patient states pain is manageable with the current regimen 07/29/2018: -Increased frequency of Reader 7.5/325mg to q.4 hours PRN from q. 6 hours PRN -Continue Motrin 800mg q. 8 hours 07/28/2018 -Pt taking Reader 5/325mg q. 6 hours and Motrin 800mg q. 8 hours as needed with moderate improvement -Increase Reader to 7.5/325mg q. 6 hours PRN -Continue Motrin 800mg q. 8 hours as needed -Keep elevated (4) Full code status Current Visit: No Status: Acute Base Code: Z78.9 - OTHER SPECIFIED HEALTH STATUS Comment: 07/28/18: -Pt has full code status this admission (5) DVT prophylaxis Current Visit: Yes Status: Acute Base Code: [id number] - Comment: 07/30/18: -Platelets decreased to 80 on 07/29/18 -CBC/CMP ordered -Will continue Lovenox daily with monitoring of platelets -Should platelets drop below 50, will stop Lovenox -Nursing to encourage ambulation and frequent position changes 07/29/18: -Platelets decreased to 80 on 07/29/18 -Will continue Lovenox daily with monitoring of platelets -Should platelets drop below 50, will stop Lovenox -Nursing to encourage ambulation and frequent position changes 07/28/2018: -Platelets 89 on 07/27/18 -No mobility concerns noted -Nursing to encourage ambulation and frequent position changes Results - Labs Result Diagrams: 07/30/18 10:05 07/29/18 06:23 Labs Last 24 Hours: Laboratory Results - last 24 hr 07/29/18 21:30 Vancomycin Trough Cancelled DVT/PE Assessment - Risk for VTE Risk for VTE: No Risk Level: Moderate Risk Assessment Date: 07/28/18 Risk Assessment Time: 11:43 VTE Orders Placed or Will Be Placed: No VTE Reason for No Prophylaxis: Complication of Medical Care (platelet count on 07/27/18 = 89) - Active Medicaitons Current Medications: Current Medications Hydrocodone Bitart/Acetaminophen (Reader 7.5mg/325mg) 1 each PO Q4H PRN PRN Reason: PAIN - MOD TO SEVERE (5-10) Last Admin: 07/29/18 23:05 Dose: 1 each Albuterol Sulfate () 2.5 mg INH RESP.Q4H.WA PRN PRN Reason: DIFFICULTY IN BREATHING Albuterol/Ipratropium (Duoneb) 3 ml INH RESP.Q6H PRN PRN Reason: WHEEZING Amlodipine Besylate (Norvasc) 10 mg PO 1800 [facility] Last Admin: 07/29/18 17:49 Dose: 10 mg Diphenhydramine HCl (Benadryl) 25 mg IVP Q6H PRN PRN Reason: Itching Last Admin: 07/29/18 11:51 Dose: 25 mg Docusate Sodium (Colace) 200 mg PO DAILY [facility] Last Admin: 07/29/18 15:57 Dose: 200 mg Enoxaparin Sodium (Lovenox) 40 mg SC DAILY [facility] Last Admin: 07/29/18 10:53 Dose: 40 mg Fluticasone Propionate (Flonase) 2 spray NA DAILY [facility] Last Admin: 07/29/18 10:51 Dose: 2 spray Hydroxyzine Pamoate (Vistaril) 25 mg PO TID PRN PRN Reason: ANXIETY Last Admin: 07/30/18 06:33 Dose: 25 mg Vancomycin HCl 1,000 mg/ (Dextrose) 250 mls @ 250 mls/hr IVPB Q12HR [facility] Stop: 08/02/18 11:01 Last Infusion: 07/30/18 01:14 Dose: Infused Vancomycin HCl 1,000 mg/ (Dextrose) 250 mls @ 250 mls/hr IVPB Q12H [facility] Stop: 08/02/18 23:01 Last Infusion: 07/30/18 03:40 Dose: Infused Ibuprofen (Motrin 400mg) 800 mg PO Q8H PRN PRN Reason: PAIN - MILD (1-4) Last Admin: 07/28/18 04:38 Dose: 800 mg Lisinopril (Zestril) 40 mg PO 0600 [facility] Last Admin: 07/30/18 06:32 Dose: 40 mg Montelukast Sodium (Singulair) 10 mg PO QHS [facility] Last Admin: 07/29/18 22:57 Dose: 10 mg Non-Formulary Medication (Omeprazole [Omeprazole]) 40 mg PO DAILYAC [facility] Last Admin: 07/29/18 06:25 Dose: Not Given Ondansetron HCl (Zofran) 4 mg IVP Q6H PRN PRN Reason: NAUSEA Last Admin: 07/29/18 08:59 Dose: 4 mg Ondansetron HCl (Zofran Odt) 4 mg SL Q6H PRN PRN Reason: NAUSEA/VOMITING Last Admin: 07/28/18 11:12 Dose: 4 mg AMI Plan - Labs Result Diagrams: 07/30/18 10:05 07/29/18 06:23
[2018-07-30 10:21] LABS: HEMATOCRIT 31.4 % (35.0-47.0); HEMOGLOBIN 9.7 gm/dl (11.6-16.0); MEAN CELL VOLUME 87.7 fl (81-97); MEAN CORPUSCULAR HGB CONC 30.9 g/dl (32-36); MEAN PLATELET VOLUME 10.5 fl (7.4-10.4); PLATELET COUNT 109 K/uL (130-400); RED BLOOD COUNT 3.58 M/uL (3.80-5.40); RED CELL DISTRIBUTION WIDTH 17.4 % (11.5-14.5); WHITE BLOOD COUNT W/O DIFF 3.5 K/uL (4.2-12.2)
[2018-07-30 10:34] LABS: HYPOCHROMIA 1+; PLATELET ESTIMATE NORMAL (NORMAL)
[2018-07-30 10:43] LABS: ALB/GLOB RATIO 0.8 (1.1-1.8); ALBUMIN 3.2 g/dL (4.0-5.0); ALKALINE PHOSPHATASE 106 U/L (35-104); ALT/SGPT 17 U/L (<33); AST/SGOT 45 U/L (10.0-35.0); BLOOD UREA NITROGEN 9 mg/dL (8-23); CREATININE 0.6 mg/dL (0.5-0.9); EST GLOMERULAR FILTRATION RATE > 60 mL/min; GLUCOSE,RANDOM 152 mg/dL (74-109); TOTAL PROTEIN 7.2 g/dL (6.6-8.7)
[2018-07-30] MEDS: ENOXAPARIN 40 MG/0.4 ML SYR SC SCH (10:55)
[2018-07-30] MEDS: DOCUSATE SODIUM 100 MG CAPSULE PO SCH (10:55)
[2018-07-30] MEDS: HYDROCODONE/APAP 7.5/325MG TABLET PO PRN ×2 (10:56→21:13)
[2018-07-30] MEDS: Non-Formulary MISC (Omeprazole [Omeprazole] 40 MG) PO SCH (10:58)
[2018-07-30] MEDS: FLUTICASONE PROPIONATE 50MCG NASAL 16 GM BTL SCH (11:04)
[2018-07-30] MEDS ORDERED: PNEUM 23-VAL ADULT IM ONE (14:09)
[2018-07-30] MEDS: CEFAZOLIN 1 Gram 1 GM/50 ML BAG IVPB SCH ×2 (14:40→22:07)
[2018-07-30] MEDS: ONDANSETRON 4 MG ODT TABLET SL PRN (17:03)
[2018-07-30] MEDS: AMLODIPINE BESYLATE 5MG TAB PO SCH (17:41)
[2018-07-30] MEDS: MONTELUKAST SODIUM 10MG TABLET PO SCH (21:13)
[2018-07-30] MEDS ORDERED: BISACODYL 5 MG TABLET PO PRN (23:22)
[2018-07-31] MEDS: IBUPROFEN 400 MG TABLET PO PRN (02:15)
[2018-07-31] MEDS: CEFAZOLIN 1 Gram 1 GM/50 ML BAG IVPB SCH ×2 (06:23→14:17)
[2018-07-31] MEDS: LISINOPRIL 20 MG TABLET PO SCH (06:23)
[2018-07-31] MEDS: HYDROCODONE/APAP 7.5/325MG TABLET PO PRN (06:36)
[2018-07-31] MEDS: Non-Formulary MISC (Omeprazole [Omeprazole] 40 MG) PO SCH (06:49)
[2018-07-31] MEDS: ONDANSETRON 4 MG ODT TABLET SL PRN (06:49)
[2018-07-31] MEDS: DOCUSATE SODIUM 100 MG CAPSULE PO SCH (09:03)
[2018-07-31] MEDS: ENOXAPARIN 40 MG/0.4 ML SYR SC SCH (09:03)
[2018-07-31] MEDS: FLUTICASONE PROPIONATE 50MCG NASAL 16 GM BTL SCH (09:05)
[2018-07-31 09:58] LABS: BASO % 0.5 % (0-6); EOS % 3.9 % (0-6); GRAN % 67.3 % (47-80); HEMATOCRIT 32.2 % (35.0-47.0); HEMOGLOBIN 9.9 gm/dl (11.6-16.0); LYMPH % 13.8 % (16-45); MEAN CELL VOLUME 86.6 fl (81-97); MEAN CORPUSCULAR HEMOGLOBIN 26.6 pg (27-33); MEAN CORPUSCULAR HGB CONC 30.7 g/dl (32-36); MEAN PLATELET VOLUME 9.9 fl (7.4-10.4); MONO % 14.5 % (0-9); PLATELET COUNT 115 K/uL (130-400); RED BLOOD COUNT 3.72 M/uL (3.80-5.40); RED CELL DISTRIBUTION WIDTH 17.5 % (11.5-14.5); WHITE BLOOD COUNT W/O DIFF 4.4 K/uL (4.2-12.2)
[2018-07-31] MEDS: SENNOSIDES/DOCUSATE SODIUM UD CAPSULE PO SCH ×2 (10:15→22:54)
[2018-07-31 10:16] LABS: BLOOD UREA NITROGEN 10 mg/dL (8-23); CREATININE 0.6 mg/dL (0.5-0.9); EST GLOMERULAR FILTRATION RATE > 60 mL/min; GLUCOSE,RANDOM 127 mg/dL (74-109)
--- NOTE | 2018-07-31 11:25 | Physician Progress Note ---
Subjective - Date Date of Physician Progress Note: 07/31/18 - Subjective Subjective Comment: Pt states that she has not had a bowel movement since 07/28. She states that she doesn't want to get an enema. Feels bloated but denies any nausea or vomiting. Has been decreasing norco intake 11/28 to constipation. erythema has receded to only medial ankle/ malleolus area. Pain has improved. Objective - Vital Signs Vital Signs: Vital Signs - Last 24 Hrs Temp Pulse Resp BP BP Pulse Ox 07/31/18 10:30 98.0 F 136/55 07/31/18 09:05 98.0 F 71 16 136/55 98 07/31/18 08:07 20 07/31/18 06:00 98.0 F 79 22 154/69 98 07/30/18 20:00 87 22 148/57 98 07/30/18 14:00 98.0 F 83 16 139/66 98 - General General Appearance: Alert, Oriented x3, Cooperative, No acute distress Limitations: No limitations - Head Head exam: Atraumatic, Normal inspection - Eye Eye exam: Normal appearance. negative: Conjunctival injection, Scleral icterus - ENT ENT exam: Normal exam Ear exam: Normal external inspection Nasal Exam: Normal inspection Mouth exam: Normal external inspection - Neck Neck exam: Normal inspection - Respiratory Respiratory exam: negative: Accessory muscle use, Respiratory distress - GI/Abdominal GI/Abdominal exam: Tenderness - Rectal Rectal exam: Deferred - exam: Deferred - Extremities Extremities exam: Full ROM. negative: Normal inspection, Joint swelling - Neurological Neurological exam: Alert, Oriented X3 - Psychiatric Psychiatric exam: Normal affect, Normal mood - Skin Skin exam: Erythema (has receded to only involve the medial aspect of the R ankle and medial malleolus. ), Rash (RLE ), Warm Description of rash: Erythematous. negative: Blisters, Crusting, Discharge, Fluctuant Assessment and Plan - Assessment and Plan (1) Cellulitis Current Visit: Yes Status: Acute Qualifiers: Site of cellulitis: extremity Site of cellulitis of extremity: lower extremity Laterality: right Qualified Code(s): L03.115 - Cellulitis of right lower limb Base Code: L03.90 - CELLULITIS, UNSPECIFIED Priority: High Comment: 2017: -Erythema and warmth improving. Pain decreasing. -Afebrile, WBC wnl. -Blood cx Staph Aureus, resistent to clinda - susceptible to Cephazolin. -CBC/CMP daily. (2) Constipation due to opioid therapy Current Visit: Yes Status: Acute Base Code: K59.03 - DRUG INDUCED CONSTIPATION; T40.2X5A - ADVERSE EFFECT OF OTHER OPIOIDS, INITIAL ENCOUNTER Comment: 07/31/18 - D/C norco. - Schedule 1000mg tylenol Q 6 hours. - Schedule ibuprofen 800mg Q8 hours. - Tramadol 50mg Q 4 hours PRN moderate pain/ breakthrough. (3) HTN (hypertension) Current Visit: Yes Status: Chronic Qualifiers: Hypertension type: essential hypertension Qualified Code(s): I10 - Essential (primary) hypertension Base Code: I10 - ESSENTIAL (PRIMARY) HYPERTENSION Comment: Continue lisinopril as prescribed. (4) Type 2 diabetes mellitus Current Visit: Yes Status: Chronic Qualifiers: Diabetes mellitus complication status: without complication Base Code: E11.9 - TYPE 2 DIABETES MELLITUS WITHOUT COMPLICATIONS Comment: Continue metformin as prescribed (5) DVT prophylaxis Current Visit: Yes Status: Acute Base Code: [id number] - Comment: 07/31/18: -Platelets decreased to 80 on 07/29/18 -CBC/CMP ordered -Will continue Lovenox daily with monitoring of platelets -Should platelets drop below 50, will stop Lovenox -Nursing to encourage ambulation and frequent position changes (6) Full code status Current Visit: Yes Status: Chronic Base Code: Z78.9 - OTHER SPECIFIED HEALTH STATUS Comment: -Pt has full code status this admission Results - Labs Result Diagrams: 07/31/18 09:30 07/31/18 09:30 Labs Last 24 Hours: Laboratory Results - last 24 hr 07/31/18 07/31/18 09:30 09:30 WBC 4.4 RBC 3.72 L Hgb 9.9 L Hct 32.2 L MCV 86.6 MCH 26.6 L MCHC 30.7 L RDW 17.5 H Plt Count 115 L MPV 9.9 Gran % 67.3 Lymphocytes % 13.8 L Monocytes % 14.5 H Eosinophils % 3.9 Basophils % 0.5 Sodium 138 Potassium 4.1 Chloride 101 Carbon Dioxide 25.0 Anion Gap 12.0 BUN 10 Creatinine 0.6 Estimated GFR > 60 Random Glucose 127 H Calcium 8.6 L DVT/PE Assessment - Risk for VTE Risk for VTE: No Risk Level: Moderate Risk Assessment Date: 07/28/18 Risk Assessment Time: 11:43 VTE Orders Placed or Will Be Placed: No VTE Reason for No Prophylaxis: Complication of Medical Care (platelet count on 07/27/18 = 89) - Active Medicaitons Current Medications: Current Medications Hydrocodone Bitart/Acetaminophen ([place] 7.5mg/325mg) 1 each PO Q4H PRN PRN Reason: PAIN - MOD TO SEVERE (5-10) Last Admin: 07/31/18 06:36 Dose: 1 each Albuterol Sulfate () 2.5 mg INH RESP.Q4H.WA PRN PRN Reason: DIFFICULTY IN BREATHING Albuterol/Ipratropium (Duoneb) 3 ml INH RESP.Q6H PRN PRN Reason: WHEEZING Amlodipine Besylate (Norvasc) 10 mg PO 1800 [facility] Last Admin: 07/30/18 17:41 Dose: 10 mg Bisacodyl (Dulcolax) 5 mg PO DAILY PRN PRN Reason: CONSTIPATION Last Admin: 07/30/18 23:31 Dose: 10 mg Diphenhydramine HCl (Benadryl) 25 mg IVP Q6H PRN PRN Reason: Itching Last Admin: 07/29/18 11:51 Dose: 25 mg Docusate Sodium (Colace) 200 mg PO DAILY [facility] Last Admin: 07/31/18 09:03 Dose: 200 mg Enoxaparin Sodium (Lovenox) 40 mg SC DAILY [facility] Last Admin: 07/31/18 09:03 Dose: 40 mg Fluticasone Propionate (Flonase) 2 spray NA DAILY [facility] Last Admin: 07/31/18 09:05 Dose: 2 spray Hydroxyzine Pamoate (Vistaril) 25 mg PO TID PRN PRN Reason: ANXIETY Last Admin: 07/30/18 23:30 Dose: 25 mg Cefazolin Sodium (Kefzol) 1 gm in 50 mls @ 100 mls/hr IVPB Q8HR [facility] Stop: 08/04/18 14:16 Last Infusion: 07/31/18 07:00 Dose: Infused Ibuprofen (Motrin 400mg) 800 mg PO Q8H PRN PRN Reason: PAIN - MILD (1-4) Last Admin: 07/31/18 02:15 Dose: 800 mg Lisinopril (Zestril) 40 mg PO 0600 [facility] Last Admin: 07/31/18 06:23 Dose: 40 mg Montelukast Sodium (Singulair) 10 mg PO QHS [facility] Last Admin: 07/30/18 21:13 Dose: 10 mg Non-Formulary Medication (Omeprazole [Omeprazole]) 40 mg PO DAILYAC [facility] Last Admin: 07/31/18 06:49 Dose: Not Given Ondansetron HCl (Zofran) 4 mg IVP Q6H PRN PRN Reason: NAUSEA Last Admin: 07/29/18 08:59 Dose: 4 mg Ondansetron HCl (Zofran Odt) 4 mg SL Q6H PRN PRN Reason: NAUSEA/VOMITING Last Admin: 07/31/18 06:49 Dose: 4 mg Senna/Docusate Sodium (Senna Plus) 2 each PO BID [facility] Last Admin: 07/31/18 10:15 Dose: 2 each AMI Plan - Labs Result Diagrams: 07/31/18 09:30 07/31/18 09:30
[2018-07-31] MEDS ORDERED: ACETAMINOPHEN 500 MG TABLET PO SCH (12:00)
[2018-07-31] MEDS: IBUPROFEN 400 MG TABLET PO SCH ×2 (12:58→22:52)
[2018-07-31] MEDS: CEPHALEXIN 500 MG CAPSULE PO SCH ×3 (14:20→23:48)
[2018-07-31] MEDS: TRAMADOL HCL 50 MG TABLET PO PRN (16:04)
[2018-07-31] MEDS: DIPHENHYDRAMINE HCL 50 MG/ML VIAL IVP PRN (16:28)
[2018-07-31] MEDS: DIPHENHYDRAMINE HCL 25 MG CAPSULE PO PRN ×2 (17:09→22:57)
[2018-07-31] MEDS: AMLODIPINE BESYLATE 5MG TAB PO SCH (18:06)
[2018-07-31] MEDS: MONTELUKAST SODIUM 10MG TABLET PO SCH (22:52)
[2018-07-31] MEDS: HYDROXYZINE PAMOATE 25 MG CAPSULE PO PRN (23:49)
[2018-08-01] MEDS: TRAMADOL HCL 50 MG TABLET PO PRN ×4 (03:28→23:06)
[2018-08-01] MEDS: LISINOPRIL 20 MG TABLET PO SCH (06:02)
[2018-08-01] MEDS: CEPHALEXIN 500 MG CAPSULE PO SCH ×4 (06:03→23:06)
[2018-08-01] MEDS: IBUPROFEN 400 MG TABLET PO SCH ×3 (06:03→21:44)
[2018-08-01] MEDS: Non-Formulary MISC (Omeprazole [Omeprazole] 40 MG) PO SCH (06:07)
[2018-08-01 06:15] LABS: BASO % 0.5 % (0-6); EOS % 4.1 % (0-6); GRAN % 69.3 % (47-80); HEMATOCRIT 32.7 % (35.0-47.0); HEMOGLOBIN 10.1 gm/dl (11.6-16.0); LYMPH % 13.7 % (16-45); MEAN CELL VOLUME 87.7 fl (81-97); MEAN CORPUSCULAR HGB CONC 30.9 g/dl (32-36); MEAN PLATELET VOLUME 9.4 fl (7.4-10.4); MONO % 12.4 % (0-9); PLATELET COUNT 111 K/uL (130-400); RED BLOOD COUNT 3.73 M/uL (3.80-5.40); RED CELL DISTRIBUTION WIDTH 17.5 % (11.5-14.5); WHITE BLOOD COUNT W/O DIFF 3.9 K/uL (4.2-12.2)
[2018-08-01 06:27] LABS: ALB/GLOB RATIO 0.7 (1.1-1.8); ALBUMIN 2.9 g/dL (4.0-5.0); ALKALINE PHOSPHATASE 106 U/L (35-104); ALT/SGPT 17 U/L (<33); AST/SGOT 42 U/L (10.0-35.0); BLOOD UREA NITROGEN 12 mg/dL (8-23); CREATININE 0.6 mg/dL (0.5-0.9); EST GLOMERULAR FILTRATION RATE > 60 mL/min; GLUCOSE,RANDOM 109 mg/dL (74-109); TOTAL PROTEIN 7.1 g/dL (6.6-8.7)
[2018-08-01] MEDS: CEFAZOLIN 1 Gram 1 GM/50 ML BAG IVPB SCH (07:39)
[2018-08-01] MEDS: SENNOSIDES/DOCUSATE SODIUM UD CAPSULE PO SCH ×3 (07:40→21:46)
[2018-08-01] MEDS: FLUTICASONE PROPIONATE 50MCG NASAL 16 GM BTL SCH (10:10)
[2018-08-01] MEDS: ENOXAPARIN 40 MG/0.4 ML SYR SC SCH (10:11)
[2018-08-01] MEDS: HYDROXYZINE PAMOATE 25 MG CAPSULE PO PRN (10:13)
--- NOTE | 2018-08-01 11:50 | Physician Progress Note ---
Subjective - Date Date of Physician Progress Note: 08/01/18 - Subjective Subjective Comment: Pt states that she had a small bowel movement yesterday. She states that a pustule is presenting on her ankle but the swelling has reduced in that area. She is now on PO Keflex. Pain is controlled with ibuprofen and tramadol. She states that after her PNA vaccine her arm has swelled to double the size and is warm and sore when she tries to move it. Objective - Vital Signs Vital Signs: Vital Signs - Last 24 Hrs Temp Pulse Resp BP Pulse Ox 08/01/18 09:00 18 08/01/18 08:15 98.0 F 70 18 109/76 95 08/01/18 05:00 98.0 F 78 20 142/69 100 08/01/18 00:00 97.9 F 76 18 139/56 98 07/31/18 21:00 79 22 07/31/18 20:00 97.8 F 79 22 150/72 96 07/31/18 15:39 98.3 F 81 18 144/63 97 - General General Appearance: Alert, Oriented x3, Cooperative, No acute distress Limitations: No limitations - Head Head exam: Atraumatic, Normal inspection - Eye Eye exam: Normal appearance. negative: Conjunctival injection, Scleral icterus - ENT ENT exam: Normal exam Ear exam: Normal external inspection Nasal Exam: Normal inspection Mouth exam: Normal external inspection - Neck Neck exam: Normal inspection - Respiratory Respiratory exam: negative: Accessory muscle use, Respiratory distress - Rectal Rectal exam: Deferred - exam: Deferred - Extremities Extremities exam: Full ROM. negative: Normal inspection (R arm erythema and swelling with warmth noted), Joint swelling - Back Back exam: Reports: Normal inspection. Denies: CVA tenderness (R), CVA tenderness (L) - Neurological Neurological exam: Alert, Oriented X3 - Psychiatric Psychiatric exam: Normal affect, Normal mood - Skin Skin exam: Erythema (has receded to only involve the medial aspect of the R ankle and medial malleolus. Small nodule with very small amount of fluctuance noted on the medial side of the ankle. TTP. Swelling has reduced since yesterday. Still warm to the touch.), Rash (RLE ), Warm Type of lesion: negative: abrasion, Laceration Description of rash: Erythematous. negative: Blisters, Crusting, Discharge Assessment and Plan - Assessment and Plan (1) Swelling of upper arm Current Visit: Yes Status: Acute Base Code: M79.89 - OTHER SPECIFIED SOFT TISSUE DISORDERS Priority: High Comment: - Looks like local allergic reaction to PNA vaccine. - Will monitor for improvement/ stability before sending pt home. - U/S ordered to rule out DVT. - Benadryl PRN (2) Cellulitis Current Visit: Yes Status: Acute Qualifiers: Site of cellulitis: extremity Site of cellulitis of extremity: lower extremity Laterality: right Qualified Code(s): L03.115 - Cellulitis of right lower limb Base Code: L03.90 - CELLULITIS, UNSPECIFIED Priority: High Comment: 2017: - swelling and erythema improving. -Afebrile, WBC wnl. -Blood cx Staph Aureus, resistent to clinda - susceptible to Cephazolin. - Switched to PO Keflex. -CBC/CMP daily. (3) Constipation due to opioid therapy Current Visit: Yes Status: Acute Base Code: K59.03 - DRUG INDUCED CONSTIPATION; T40.2X5A - ADVERSE EFFECT OF OTHER OPIOIDS, INITIAL ENCOUNTER Comment: 08/01/18 - One small BM last night - D/C norco. - Pt refused tylenol, open to trying tramadol 50mg Q 4 hours PRN moderate pain/ breakthrough. - Schedule ibuprofen 800mg Q8 hours. - Increase Senna plus to 4 pills BID. (4) HTN (hypertension) Current Visit: Yes Status: Chronic Qualifiers: Hypertension type: essential hypertension Qualified Code(s): I10 - Essential (primary) hypertension Base Code: I10 - ESSENTIAL (PRIMARY) HYPERTENSION Comment: Continue lisinopril as prescribed. (5) Type 2 diabetes mellitus Current Visit: Yes Status: Chronic Qualifiers: Diabetes mellitus complication status: without complication Base Code: E11.9 - TYPE 2 DIABETES MELLITUS WITHOUT COMPLICATIONS Comment: Continue metformin as prescribed (6) DVT prophylaxis Current Visit: Yes Status: Acute Base Code: [id number] - Comment: 07/31/18: -Platelets decreased to 80 on 07/29/18 -CBC/CMP ordered -Will continue Lovenox daily with monitoring of platelets -Should platelets drop below 50, will stop Lovenox -Nursing to encourage ambulation and frequent position changes (7) Full code status Current Visit: Yes Status: Chronic Base Code: Z78.9 - OTHER SPECIFIED HEALTH STATUS Comment: -Pt has full code status this admission Results - Labs Result Diagrams: 08/01/18 05:55 08/01/18 05:55 Labs Last 24 Hours: Laboratory Results - last 24 hr 08/01/18 08/01/18 08/01/18 05:55 05:55 06:00 WBC 3.9 L RBC 3.73 L Hgb 10.1 L Hct 32.7 L MCV 87.7 MCH 27.0 MCHC 30.9 L RDW 17.5 H Plt Count 111 L MPV 9.4 Gran % 69.3 Lymphocytes % 13.7 L Monocytes % 12.4 H Eosinophils % 4.1 Basophils % 0.5 Sodium 139 Cancelled Potassium 4.2 Cancelled Chloride 103 Cancelled Carbon Dioxide 26.0 Cancelled Anion Gap 10.0 Cancelled BUN 12 Cancelled Creatinine 0.6 Cancelled Estimated GFR > 60 Cancelled Random Glucose 109 Cancelled Calcium 8.6 L Cancelled Total Bilirubin 0.80 AST 42 H ALT 17 Alkaline Phosphatase 106 H Total Protein 7.1 Albumin 2.9 L Globulin 4.2 Albumin/Globulin Ratio 0.7 L 08/02/18 08/03/18 08/04/18 06:00 06:00 06:00 WBC RBC Hgb Hct MCV MCH MCHC RDW Plt Count MPV Gran % Lymphocytes % Monocytes % Eosinophils % Basophils % Sodium Cancelled Cancelled Cancelled Potassium Cancelled Cancelled Cancelled Chloride Cancelled Cancelled Cancelled Carbon Dioxide Cancelled Cancelled Cancelled Anion Gap Cancelled Cancelled Cancelled BUN Cancelled Cancelled Cancelled Creatinine Cancelled Cancelled Cancelled Estimated GFR Cancelled Cancelled Cancelled Random Glucose Cancelled Cancelled Cancelled Calcium Cancelled Cancelled Cancelled Total Bilirubin AST ALT Alkaline Phosphatase Total Protein Albumin Globulin Albumin/Globulin Ratio 08/05/18 08/06/18 06:00 06:00 WBC RBC Hgb Hct MCV MCH MCHC RDW Plt Count MPV Gran % Lymphocytes % Monocytes % Eosinophils % Basophils % Sodium Cancelled Cancelled Potassium Cancelled Cancelled Chloride Cancelled Cancelled Carbon Dioxide Cancelled Cancelled Anion Gap Cancelled Cancelled BUN Cancelled Cancelled Creatinine Cancelled Cancelled Estimated GFR Cancelled Cancelled Random Glucose Cancelled Cancelled Calcium Cancelled Cancelled Total Bilirubin AST ALT Alkaline Phosphatase Total Protein Albumin Globulin Albumin/Globulin Ratio DVT/PE Assessment - Risk for VTE Risk for VTE: No Risk Level: Moderate Risk Assessment Date: 07/28/18 Risk Assessment Time: 11:43 VTE Orders Placed or Will Be Placed: No VTE Reason for No Prophylaxis: Complication of Medical Care (platelet count on 07/27/18 = 89) - Active Medicaitons Current Medications: Current Medications Albuterol Sulfate () 2.5 mg INH RESP.Q4H.WA PRN PRN Reason: DIFFICULTY IN BREATHING Albuterol/Ipratropium (Duoneb) 3 ml INH RESP.Q6H PRN PRN Reason: WHEEZING Amlodipine Besylate (Norvasc) 10 mg PO 1800 [facility] Last Admin: 07/31/18 18:06 Dose: 10 mg Bisacodyl (Dulcolax) 5 mg PO DAILY PRN PRN Reason: CONSTIPATION Last Admin: 07/30/18 23:31 Dose: 10 mg Cephalexin HCl (Keflex) 500 mg PO Q6HR [facility] Stop: 08/10/18 14:16 Last Admin: 08/01/18 11:21 Dose: 500 mg Diphenhydramine HCl (Benadryl) 25 mg IVP Q6H PRN PRN Reason: Itching Last Admin: 07/29/18 11:51 Dose: 25 mg Diphenhydramine HCl (Benadryl Capsule) 50 mg PO Q6H PRN PRN Reason: ITCH/HIVES Last Admin: 07/31/18 22:57 Dose: 50 mg Enoxaparin Sodium (Lovenox) 40 mg SC DAILY [facility] Last Admin: 08/01/18 10:11 Dose: 40 mg Fluticasone Propionate (Flonase) 2 spray NA DAILY [facility] Last Admin: 08/01/18 10:10 Dose: 2 spray Hydroxyzine Pamoate (Vistaril) 25 mg PO TID PRN PRN Reason: ANXIETY Last Admin: 08/01/18 10:13 Dose: 25 mg Ibuprofen (Motrin 400mg) 800 mg PO Q8HR [facility] Last Admin: 08/01/18 06:03 Dose: 800 mg Lisinopril (Zestril) 40 mg PO 0600 [facility] Last Admin: 08/01/18 06:02 Dose: 40 mg Montelukast Sodium (Singulair) 10 mg PO QHS [facility] Last Admin: 07/31/18 22:52 Dose: 10 mg Non-Formulary Medication (Omeprazole [Omeprazole]) 40 mg PO DAILYAC [facility] Last Admin: 08/01/18 06:07 Dose: Not Given Ondansetron HCl (Zofran) 4 mg IVP Q6H PRN PRN Reason: NAUSEA Last Admin: 07/29/18 08:59 Dose: 4 mg Ondansetron HCl (Zofran Odt) 4 mg SL Q6H PRN PRN Reason: NAUSEA/VOMITING Last Admin: 07/31/18 06:49 Dose: 4 mg Senna/Docusate Sodium (Senna Plus) 0 each PO BID [facility] Last Admin: 08/01/18 10:13 Dose: 4 each Tramadol HCl (Ultram) 50 mg PO Q4HR PRN PRN Reason: PAIN - MOD TO SEVERE (5-10) Last Admin: 08/01/18 10:12 Dose: 50 mg AMI Plan - Labs Result Diagrams: 08/01/18 05:55 08/01/18 05:55
[2018-08-01] MEDS: AMLODIPINE BESYLATE 5MG TAB PO SCH (18:32)
[2018-08-01] MEDS: MONTELUKAST SODIUM 10MG TABLET PO SCH (21:46)
[2018-08-02] MEDS: TRAMADOL HCL 50 MG TABLET PO PRN ×2 (03:52→10:17)
[2018-08-02] MEDS: IBUPROFEN 400 MG TABLET PO SCH (06:02)
[2018-08-02] MEDS: CEPHALEXIN 500 MG CAPSULE PO SCH ×2 (06:02→12:35)
[2018-08-02] MEDS: LISINOPRIL 20 MG TABLET PO SCH (06:03)
[2018-08-02 06:23] LABS: BASO % 0.5 % (0-6); EOS % 3.2 % (0-6); GRAN % 72.9 % (47-80); HEMATOCRIT 33.6 % (35.0-47.0); HEMOGLOBIN 10.2 gm/dl (11.6-16.0); LYMPH % 12.2 % (16-45); MEAN CELL VOLUME 88.2 fl (81-97); MEAN CORPUSCULAR HGB CONC 30.4 g/dl (32-36); MONO % 11.2 % (0-9); PLATELET COUNT 123 K/uL (130-400); RED BLOOD COUNT 3.81 M/uL (3.80-5.40); RED CELL DISTRIBUTION WIDTH 17.5 % (11.5-14.5)
[2018-08-02 06:26] LABS: MEAN CORPUSCULAR HEMOGLOBIN 26.7 pg (27-33)
[2018-08-02 06:38] LABS: ALB/GLOB RATIO 0.8 (1.1-1.8); ALBUMIN 3.1 g/dL (4.0-5.0); ALKALINE PHOSPHATASE 112 U/L (35-104); ALT/SGPT 20 U/L (<33); AST/SGOT 52 U/L (10.0-35.0); BLOOD UREA NITROGEN 11 mg/dL (8-23); CREATININE 0.5 mg/dL (0.5-0.9); EST GLOMERULAR FILTRATION RATE > 60 mL/min; GLUCOSE,RANDOM 97 mg/dL (74-109); TOTAL PROTEIN 7.2 g/dL (6.6-8.7)
[2018-08-02] MEDS: Non-Formulary MISC (Omeprazole [Omeprazole] 40 MG) PO SCH (08:21)
[2018-08-02] MEDS: FLUTICASONE PROPIONATE 50MCG NASAL 16 GM BTL SCH (10:17)
[2018-08-02] MEDS: HYDROXYZINE PAMOATE 25 MG CAPSULE PO PRN (10:18)
[2018-08-02] MEDS: SENNOSIDES/DOCUSATE SODIUM UD CAPSULE PO SCH (10:18)
[2018-08-02] MEDS: ENOXAPARIN 40 MG/0.4 ML SYR SC SCH (10:18)
--- NOTE | 2018-08-02 10:26 | Discharge Summary ---
Providers Discharge Summary Date: 08/02/18 Date of admission: 07/27/18 17:14 Expected Date of Discharge: 08/02/18 Attending physician: REIAN CUEVA Primary care physician: REINA CUEVA Physical Exam - Vital Signs Vital Signs: Vital Signs - Last 24 Hrs Temp Pulse Resp BP Pulse Ox 08/02/18 06:00 98.5 F 71 20 145/60 97 08/01/18 23:58 98.0 F 71 22 154/70 99 08/01/18 20:00 98.0 F 75 20 156/49 100 08/01/18 19:30 18 08/01/18 18:29 97.9 F 74 18 143/71 99 08/01/18 13:00 97.9 F 75 18 154/55 98 - General General Appearance: Alert, Oriented x3, Cooperative, No acute distress Limitations: No limitations - Head Head exam: Atraumatic, Normal inspection - Eye Eye exam: Normal appearance. negative: Conjunctival injection, Scleral icterus - ENT ENT exam: Normal exam Ear exam: Normal external inspection Nasal Exam: Normal inspection Mouth exam: Normal external inspection - Neck Neck exam: Normal inspection - Respiratory Respiratory exam: negative: Accessory muscle use, Respiratory distress - Cardiovascular Cardiovascular Exam: Regular rate, Normal rhythm, Normal heart sounds - GI/Abdominal GI/Abdominal exam: Soft, Hypoactive bowel sounds - Rectal Rectal exam: Deferred - exam: Deferred - Extremities Extremities exam: Full ROM. negative: Normal inspection (R arm swelling and erythema significantly improved today. Warmth still present.), Joint swelling - Back Back exam: Reports: Normal inspection. Denies: CVA tenderness (R), CVA tenderness (L) - Neurological Neurological exam: Alert, Oriented X3 - Psychiatric Psychiatric exam: Normal affect, Normal mood - Skin Skin exam: Erythema (has receded to only involve the medial aspect of the R ankle and medial malleolus. Small nodule with very small drainage noted on the medial side of the ankle. Mild TTP. Still warm to the touch.), Rash (RLE ), Warm Type of lesion: negative: abrasion, Laceration Description of rash: Erythematous. negative: Blisters, Crusting, Discharge Hospitalization - Hospitalization Admission Diagnosis: Cellulitis - Problem List/Discharge Diagnosis (1) Swelling of upper arm Current Visit: Yes Status: Acute Base Code: M79.89 - OTHER SPECIFIED SOFT TISSUE DISORDERS Comment: - Looks like local allergic reaction to PNA vaccine. - Improved significantly from 08/01/18. (2) Cellulitis Current Visit: Yes Status: Acute Discharge Diagnosis: Site of cellulitis: extremity Site of cellulitis of extremity: lower extremity Laterality: right Qualified Code(s): L03.115 - Cellulitis of right lower limb Base Code: L03.90 - CELLULITIS, UNSPECIFIED Comment: - swelling and erythema improving. -Afebrile, WBC wnl. - Continue keflex and will add doxy for MRSA coverage given pustule appearance. (3) Constipation due to opioid therapy Current Visit: Yes Status: Acute Base Code: K59.03 - DRUG INDUCED CONSTIPATION; T40.2X5A - ADVERSE EFFECT OF OTHER OPIOIDS, INITIAL ENCOUNTER Comment: - D/C norco. - Pt refused tylenol, open to trying tramadol 50mg Q 4 hours PRN moderate pain/ breakthrough. - Schedule ibuprofen 800mg Q8 hours. - Senna plus to 4 pills BID. (4) HTN (hypertension) Current Visit: Yes Status: Chronic Discharge Diagnosis: Hypertension type: essential hypertension Base Code: I10 - ESSENTIAL (PRIMARY) HYPERTENSION Comment: Continue lisinopril as prescribed. (5) Type 2 diabetes mellitus Current Visit: Yes Status: Chronic Discharge Diagnosis: Diabetes mellitus complication status: without complication Base Code: E11.9 - TYPE 2 DIABETES MELLITUS WITHOUT COMPLICATIONS Comment: Continue metformin as prescribed (6) DVT prophylaxis Current Visit: Yes Status: Acute Base Code: [id number] - Comment: -Platelets decreased to 80 on 07/29/18 -Will continue Lovenox daily with monitoring of platelets -Should platelets drop below 50, will stop Lovenox -Nursing to encourage ambulation and frequent position changes (7) Full code status Current Visit: Yes Status: Chronic Base Code: Z78.9 - OTHER SPECIFIED HEALTH STATUS Comment: -Pt has full code status this admission - Disposition Home - Hospitalization Course Disposition: Home, Self-Care Hospital Course: 07/27/2018: Admitted for RLE cellulitis and started on clindamycin. 07/28/2018: No improvement with clindamycin, pt switched over to vanco x 3 days until cx resulted. 07/31/2018: Improvement with vanco seen but cx indicated susceptibility to Cephazolin and pt switched to that. 08/01/2018: Pt transitioned to oral keflex. Continued improvement was seen but pustule noted to be appearing on the ankle. Pt received PNA vaccine in the R arm and proceeded to have significant swelling and warmth in the area - she was monitored for an additional day 2/2 to this local reaction. 08/02/2018: Pustule spontaneously opened and was sent for cx. Pt's swelling in arm significantly decreased, some warmth still present. Since pustule present and cx already noted resistance to clinda, added bactrim to keflex, for MRSA coverage upon D/C. Area of residual erythema marked. Pt to f/u with PCP in 2 days for continued monitoring of local allergic reaction in the R arm and cellulitis of the RLE. Procedures: Imaging and X-Rays 07/27/18 16:03 VENOUS DOPPLER LOWER EXT RT [US] Stat 08/03/18 07:30 EXTREMITY UPPER [US] Stat Abnormal Labs: Abnormal Lab Results 07/27/18 07/27/18 07/29/18 Range/Units 16:03 16:03 06:23 WBC 3.7 L (4.2-12.2) K/uL RBC 3.57 L (3.80-5.40) M/uL Hgb 10.9 L 9.5 L (11.6-16.0) gm/dl Hct 33.6 L 31.0 L (35.0-47.0) % MCH 26.6 L (27-33) pg MCHC 30.6 L (32-36) g/dl RDW 17.0 H 17.1 H (11.5-14.5) % Plt Count 89 L 80 L (130-400) K/uL MPV (7.4-10.4) fl Lymphocytes % 8.8 L (16-45) % Monocytes % 14.5 H (0-9) % Lymphocytes (16-45) % Monocytes 11.0 H (0-9) % ESR 54 H (0-30) mm/hr Potassium (3.4-4.5) mmol/L Random Glucose 125 H (74-109) mg/dL Calcium (8.8-10.2) mg/dL Total Bilirubin 1.30 H (0.2-1.0) mg/dL AST 49 H (10.0-35.0) U/L Alkaline Phosphatase 117 H (35-104) U/L C-Reactive Protein 3.32 H (<0.5) mg/dL Albumin 3.4 L (4.0-5.0) g/dL Albumin/Globulin Ratio 0.8 L (1.1-1.8) Vancomycin Trough (5.0-10.0) ug/mL 07/29/18 07/29/18 07/30/18 Range/Units 06:23 06:23 10:05 WBC (4.2-12.2) K/uL RBC (3.80-5.40) M/uL Hgb (11.6-16.0) gm/dl Hct (35.0-47.0) % MCH (27-33) pg MCHC (32-36) g/dl RDW (11.5-14.5) % Plt Count (130-400) K/uL MPV (7.4-10.4) fl Lymphocytes % (16-45) % Monocytes % (0-9) % Lymphocytes (16-45) % Monocytes (0-9) % ESR (0-30) mm/hr Potassium (3.4-4.5) mmol/L Random Glucose (74-109) mg/dL Calcium 8.5 L (8.8-10.2) mg/dL Total Bilirubin (0.2-1.0) mg/dL AST 38 H (10.0-35.0) U/L Alkaline Phosphatase 105 H (35-104) U/L C-Reactive Protein 7.30 H (<0.5) mg/dL Albumin 3.1 L (4.0-5.0) g/dL Albumin/Globulin Ratio 0.8 L (1.1-1.8) Vancomycin Trough 17.9 H (5.0-10.0) ug/mL 07/30/18 07/30/18 07/31/18 Range/Units 10:05 10:05 09:30 WBC 3.5 L (4.2-12.2) K/uL RBC 3.58 L 3.72 L (3.80-5.40) M/uL Hgb 9.7 L 9.9 L (11.6-16.0) gm/dl Hct 31.4 L 32.2 L (35.0-47.0) % MCH 26.6 L (27-33) pg MCHC 30.9 L 30.7 L (32-36) g/dl RDW 17.4 H 17.5 H (11.5-14.5) % Plt Count 109 L 115 L (130-400) K/uL MPV 10.5 H (7.4-10.4) fl Lymphocytes % 13.8 L (16-45) % Monocytes % 14.5 H (0-9) % Lymphocytes 15.0 L (16-45) % Monocytes 15.0 H (0-9) % ESR (0-30) mm/hr Potassium (3.4-4.5) mmol/L Random Glucose 152 H (74-109) mg/dL Calcium 8.7 L (8.8-10.2) mg/dL Total Bilirubin (0.2-1.0) mg/dL AST 45 H (10.0-35.0) U/L Alkaline Phosphatase 106 H (35-104) U/L C-Reactive Protein (<0.5) mg/dL Albumin 3.2 L (4.0-5.0) g/dL Albumin/Globulin Ratio 0.8 L (1.1-1.8) Vancomycin Trough (5.0-10.0) ug/mL 07/31/18 08/01/18 08/01/18 Range/Units 09:30 05:55 05:55 WBC 3.9 L (4.2-12.2) K/uL RBC 3.73 L (3.80-5.40) M/uL Hgb 10.1 L (11.6-16.0) gm/dl Hct 32.7 L (35.0-47.0) % MCH (27-33) pg MCHC 30.9 L (32-36) g/dl RDW 17.5 H (11.5-14.5) % Plt Count 111 L (130-400) K/uL MPV (7.4-10.4) fl Lymphocytes % 13.7 L (16-45) % Monocytes % 12.4 H (0-9) % Lymphocytes (16-45) % Monocytes (0-9) % ESR (0-30) mm/hr Potassium (3.4-4.5) mmol/L Random Glucose 127 H (74-109) mg/dL Calcium 8.6 L 8.6 L (8.8-10.2) mg/dL Total Bilirubin (0.2-1.0) mg/dL AST 42 H (10.0-35.0) U/L Alkaline Phosphatase 106 H (35-104) U/L C-Reactive Protein (<0.5) mg/dL Albumin 2.9 L (4.0-5.0) g/dL Albumin/Globulin Ratio 0.7 L (1.1-1.8) Vancomycin Trough (5.0-10.0) ug/mL 08/02/18 08/02/18 Range/Units 05:50 05:50 WBC 4.0 L (4.2-12.2) K/uL RBC (3.80-5.40) M/uL Hgb 10.2 L (11.6-16.0) gm/dl Hct 33.6 L (35.0-47.0) % MCH 26.7 L (27-33) pg MCHC 30.4 L (32-36) g/dl RDW 17.5 H (11.5-14.5) % Plt Count 123 L (130-400) K/uL MPV (7.4-10.4) fl Lymphocytes % 12.2 L (16-45) % Monocytes % 11.2 H (0-9) % Lymphocytes (16-45) % Monocytes (0-9) % ESR (0-30) mm/hr Potassium 4.6 H (3.4-4.5) mmol/L Random Glucose (74-109) mg/dL Calcium (8.8-10.2) mg/dL Total Bilirubin (0.2-1.0) mg/dL AST 52 H (10.0-35.0) U/L Alkaline Phosphatase 112 H (35-104) U/L C-Reactive Protein (<0.5) mg/dL Albumin 3.1 L (4.0-5.0) g/dL Albumin/Globulin Ratio 0.8 L (1.1-1.8) Vancomycin Trough (5.0-10.0) ug/mL Condition at Discharge: (1) Good Discharge Diagnosis: Cellulitis of the RLE and local allergic reaction to PNA vaccine. VTE Discharge VTE Reason For No Overlap Therapy: Not Indicated Discharge Medications - Discharge Medications Prescriptions: Tramadol HCl [Ultram] 50 mg PO Q4HR PRN #30 tablet PRN Reason: Pain - Mod To Severe (5-10) Cephalexin [Keflex] 500 mg PO Q6HR 8 Days #32 cap Doxycycline Monohydrate 100 mg PO BID 8 Days #16 tablet Sennosides/Docusate Sodium [Senna Plus] 2 cap PO BID PRN #30 capsule PRN Reason: Constipation Home Medications: Ambulatory Orders Albuterol Sulfate [Ventolin Hfa] 2 puff INH Q4H PRN 07/28/18 [Last Taken Unknown ] Fluticasone Propionate 2 spray NS DAILY 07/28/18 [Last Taken Unknown] Hydroxyzine Pamoate 25 mg PO TID PRN 07/28/18 [Last Taken Unknown] Lisinopril 40 mg PO DAILY 07/28/18 [Last Taken Unknown] Montelukast Sodium 10 mg PO QHS 07/28/18 [Last Taken Unknown] Cephalexin [Keflex] 500 mg PO Q6HR 8 Days #32 cap 08/02/18 [Last Taken Unknown] Diclofenac Sodium [Voltaren] 4 gm TP QID PRN #1 tube 08/02/18 [Last Taken Unknown] Doxycycline Monohydrate 100 mg PO BID 8 Days #16 tablet 08/02/18 [Last Taken Unknown] Sennosides/Docusate Sodium [Senna Plus] 2 cap PO BID PRN #30 capsule 08/02/18 [ Last Taken Unknown] Tramadol HCl [Ultram] 50 mg PO Q4HR PRN #30 tablet 08/02/18 [Last Taken Unknown] Discharge Plan - Discharge Instructions Activity at Discharge: Increase Activity as Tolerated Diet at Discharge: Diabetic Diet Additional Instructions: Take keflex Every 6 hours until pills are finished. Take doxycycline for MRSA coverage every 12 hours until pills finished. Follow up with your primary care physician in 2 days. If worsening erythema, pain, or swelling develops in the arm or leg go to the ER immediately. Tramadol prescribed for pain control. Senna also prescribed for home use PRN constipation. Quality Measures - Quality Measures Quality Measures: Advance Directives, Documentation of Current Medications in Medical Record, Elder Maltreatment Screen and Follow-Up Plan, Screening for High Blood Pressure and F/U Documented - Current Medications Quality Measure: Measure #130: Documentation of Current Medications Documentation of Current Medications: <Current Medications Documented/Reviewed> [G8161] - Blood Pressure Screening Quality Measure: Screening for High Blood Pressure and Follow-Up Documented Does Patient Have Any of the Following: Active Dx of HTN Blood Pressure Classification: Pre-Hypertensive BP Reading Systolic Measurement: 136 Diastolic Measurement: 55 Screening for High Blood Pressure: Patient Exclusion, Hx of HTN [G9744] - Advance Directives Quality Measure: Measure #47: Care Plan Advance Directives Established: No Advance Directives Information Provided To Patient: Already Provided Advance Directives on File: Yes Living Will: Yes Power of Sales Representative Cash Registers: Yes Power of Sales Representative Cash Registers Name: HANNAH NELSON Advance Care Planning: Not Discussed or Documented [[id number]] - Elder Abuse Suspicion Index Screening: Elder Abuse Suspicion Index Screening Rely on people for bathing, dressing, shopping, banking, etc: No Prevented from getting food, clothes, medication, etc: No Made to feel shamed or threatened by someone: No Forced to sign papers or use money against will: No Feel afraid, touched in ways not wanted or hurt physically: No Poor eye contact, withdrawn, malnourished, cuts or bruises: No Screening Result: Negative result EASI Reference Information: Cleve MARTINEZ, Mateusz C, Aileen D, Conrad M.Development and validation of a tool to assist physicians identification of elder abuse: The Elder Abuse Suspicion Index (EASI ). Journal of Elder Abuse and Neglect, 2008; 20 (3): 276-300. - Elder Maltreatment Screen Quality Measures: Elder Maltreatment Screen and Follow-Up Plan Elder Maltreatment Screen: <Negative, No Follow-Up Plan Required> [Q4344]
== END 2018-08-02 12:41 | disposition home or self-care (01) | DRG 603 ==
LOC: ER 15:47 → MEDSURG 17:14
PROVIDERS: ADMIT Internal Medicine; ATTEND Internal Medicine
DX: L03.115 Cellulitis of right lower limb (principal); K50.90 Crohn's disease, unspecified, without complications; R11.0 Nausea; K59.03 Drug induced constipation; R50.9 Fever, unspecified; T50.995A Adverse effect of other drugs, medicaments and biological substances, initial encounter; M79.89 Other specified soft tissue disorders; I10 Essential (primary) hypertension; J44.9 Chronic obstructive pulmonary disease, unspecified; E11.9 Type 2 diabetes mellitus without complications; M19.90 Unspecified osteoarthritis, unspecified site; M79.7 Fibromyalgia; F32.89 Other specified depressive episodes; Z87.891 Personal history of nicotine dependence
CPT/HCPCS: 80048; 80053; 80202; 85025; 85027; 85651; 86140; 87070; 90686; 90732; 94760; 96365; 99223; 99232; 99233; 99239; 99285; J1200; J1650; J2405; J7060

== ENCOUNTER 2019-04-01 11:21 | Emergency (ER) | payer MEDICARE, OTHER ==
--- NOTE | 2019-04-01 11:33 | Emergency Department Record ---
History of Present Illness - General Chief Complaint: Chest Pain Stated Complaint: CHEST PAIN Time Seen by Provider: 04/01/19 11:22 Source: Patient Mode of Arrival: Ambulatory Limitations: No limitations - History of Present Illness Initial Comments: 68 yo female presents with chest pain that had initially started at 1am. The pain was located in the middle of the chest. It was sharp and a tight feeling wrapping around the chest. It radiated to the shoulders. No radiation to the back. It is currently gone but it was severe when it occurred. She had some shortness of breath. The onset was at rest. No CAD,PE,Dissection, or aneurysm history. No leg pain or swelling. She has asthma but it has been stable. She does not smoke. She is treated for HTN. She did not take any aspirin [employer]. PCP is [facility]. Complaint: Chest pain -: Hour(s) (1am onset) Onset: During rest Pain Location: Substernal Pain Radiation: Other (both shoulders) Severity: Severe (No gone) Quality: Sharp Consistency: Now resolved Improves With: Nothing Worsens With: Nothing Context: Other Anginal Symptoms: Dyspnea Other Symptoms: Other - Related Data Home Medications Medication Instructions Recorded Confirmed Last Taken Hydroxyzine Pamoate 25 mg PO TID PRN 04/01/19 04/01/19 Unknown Allergies Allergy/AdvReac Type Severity Reaction Status Date / Time infliximab [From REMICADE] Allergy Unknown ANAPHYLAXIS Unverified 02/08/19 14:02 meperidine Allergy Unknown ANAPHYLAXIS Unverified 02/08/19 14:02 pantoprazole Allergy Unknown HIVES Unverified 02/08/19 14:02 Penicillins [PENICILLINS] Allergy Unknown ANAPHYLAXIS Unverified 02/08/19 14:02 prochlorperazine Allergy Unknown loss of Unverified 02/08/19 14:02 muscle control Proton Pump Inhibitors Allergy Unknown HIVES Unverified 02/08/19 14:02 Review of Systems Constitutional: Denies: Chills, Fever, Malaise, Weakness Eyes: Denies: Eye discharge ENT: Denies: Congestion, Throat pain Respiratory: Reports: Dyspnea. Denies: Cough, Hemoptysis, Stridor, Wheezes Cardiovascular: Reports: Chest pain. Denies: Edema, Palpitations, Syncope Endocrine: Denies: Fatigue, Polydipsia, Polyuria Gastrointestinal: Denies: Abdominal pain, Diarrhea, Nausea, Vomiting Genitourinary: Denies: Dysuria, Urgency Musculoskeletal: Denies: Arthralgia, Back pain, Joint swelling, Myalgia Skin: Denies: Bruising, Change in color, Rash Neurological: Denies: Headache, Numbness, Weakness Psychiatric: Denies: Anxiety Hematological/Lymphatic: Denies: Easy bleeding, Easy bruising Past Medical History - SOCIAL HISTORY Smoking Status: Former smoker - RESPIRATORY Hx Respiratory Disorders: Yes Hx Asthma: Yes Hx Bronchitis: Yes Hx COPD: Yes Hx Dyspnea: Yes Hx Pneumonia: Yes Hx Pulmonary Embolism: No Hx Sleep Apnea: Yes Hx Tuberculosis: No - CARDIOVASCULAR Hx Cardio Disorders: No Hx Hypertension: Yes - NEURO Hx Neuro Disorders: Yes Hx Headaches: Yes - GI Hx GI Disorders: Yes Hx Crohn's Disease: Yes Hx GI Bleed: Yes Hx Rectal Bleeding: Yes Hx Ulcer: Yes - Hx Genitourinary Disorders: No - ENDOCRINE Hx Endocrine Disorders: Yes Hx Diabetes: Yes (takes po meds) Hx Thyroid Disease: No - MUSCULOSKELETAL Hx Musculoskeletal Disorders: Yes Hx Arthritis: Yes Hx Fibromyalgia: Yes Hx Musculoskeletal Disease: Yes Comment:: knees and hips bad - PSYCH Hx Psych Problems: Yes Hx Anxiety: Yes Hx Depression: Yes - HEMATOLOGY/ONCOLOGY Hx Hematology/Oncology Disorders: No Family Medical History Hx Cancer: Mother, Brother/Sister, Grandparents Hx Heart Disease: Father Hx Resp Disorders: Brother/Sister, Grandparents Physical Exam - General General Appearance: Alert, Oriented x3, Cooperative, No acute distress Limitations: No limitations - Head Head exam: Atraumatic, Normal inspection - Eye Eye exam: Normal appearance, PERRL. negative: Conjunctival injection, Scleral icterus - ENT ENT exam: Normal exam, Mucous membranes moist Ear exam: Normal external inspection Nasal Exam: Normal inspection Mouth exam: Normal external inspection - Neck Neck exam: Normal inspection - Respiratory Respiratory exam: Normal lung sounds bilaterally. negative: Accessory muscle use, Chest wall tenderness, Prolonged expiratory, Respiratory distress, Rhonchi, Stridor, Wheezes - Cardiovascular Cardiovascular Exam: Regular rate, Normal rhythm, Normal heart sounds. negative: Diastolic murmur, Systolic murmur Peripheral Pulses: 2+: Radial (R), Radial (L) - GI/Abdominal GI/Abdominal exam: Soft. negative: Tenderness - Rectal Rectal exam: Deferred - exam: Deferred - Extremities Extremities exam: Normal inspection. negative: Calf tenderness, Pedal edema, Tenderness - Back Back exam: Denies: CVA tenderness (R), CVA tenderness (L) - Neurological Neurological exam: Alert, Oriented X3 - Psychiatric Psychiatric exam: Normal affect, Normal mood - Skin Skin exam: Dry, Intact, Normal color, Warm Course - Reevaluation(s) Reevaluation #1: The patient states her chest pain is currently gone I requested she inform staff or me if it returns 04/01/19 11:30 EKG #1: 11:27 Rate: 97 Rhythm: sinus Tilly: normal Intervals: Qtc 470 ST segments: no acute changes, inverted T wave V2 Prior: 05/29/12 04/01/19 11:30 The initial EKG and presentation was discussed with Dr Carlos of [facility]. Due to patient co-morbidities and exercise intolerance she is not a good treadmill candidate and would require transfer for alternative testing if needed. 04/01/19 11:51 04/01/19 11:56 The CBC was reviewed. Chronic anemia and mild thrombocytopenia. Stable. 04/01/19 12:08 No changes on the BMP 04/01/19 12:13 Troponin is normal at 0.01 04/01/19 12:30 The D-dimer is elevated at 0.8. This was discussed with the patient. CTA was ordered of the chest. 04/01/19 13:16 The patient is in CT. 04/01/19 13:44 CT no PE but limited due to contrast timing. Hypodensities in the liver (recommended follow up study of liver), nodule in the thyroid 13mm (recommend follow up) The results were discussed including the liver and thyroid that will need follow up. I recommend at this time she be transferred for further testing. The patient does not agree with admission or transfer. She desires to be discharged home. I explained that I do not recommend DC home. I explained that the heart is not completely ruled out. She could go home and have a heart attack or or experience other medical complications. She is a retired RN. She understands my concerns. I explained that she would need to sign out AMA if leaving. She agrees to this and understands the risks. I will refer her for outpatient evaluation with cardiology. I explained she may return anytime for further evaluation. 04/01/19 13:53 Medical Decision Making - Lab Data Result diagrams: 04/01/19 11:39 04/01/19 11:39 Disposition Disposition: Discharge Clinical Impression: Chest pain, Left against medical advice Disposition: Against Medical Advice Condition: (1) Good Instructions: Chest Pain (ED), Against Medical Advice (ED) Additional Instructions: You are signing out AMA today Call your doctor for the next available follow up appointment You have been referred to cardiology for a follow up appointment Review this ER visit and the tests performed with your family doctor Return to the ER for a recheck if worse, any chest pain, shortness of breath, or any new concerns or questions You may return at any time to be seen Referrals: NEREYDA CARLOS M.D. [MEDICAL DOCTOR] - [facility] [Provider Group] Forms: Patient Portal Access Time of Disposition: 13:59 Quality - Quality Measures Quality Measures: N/A - Blood Pressure Screening Does Patient Have Any of the Following: Active Dx of HTN Blood Pressure Classification: Hypertensive Reading Systolic Measurement: 148 Diastolic Measurement: 76 Screening for High Blood Pressure: Patient Exclusion, Hx of HTN [G9744]
[2019-04-01] MEDS ORDERED: ASPIRIN 81 MG CHEWABLE TABLET PO ONE (11:35)
[2019-04-01 11:48] LABS: ABSOLUTE NEUTROPHIL COUNT 2.38; BASO % 0.9 % (0-6); EOS % 3.8 % (0-6); GRAN % 70.2 % (47-80); HEMATOCRIT 29.1 % (35.0-47.0); HEMOGLOBIN 9.2 gm/dl (11.6-16.0); LYMPH % 11.8 % (16-45); MEAN CELL VOLUME 83.4 fl (81-97); MEAN CORPUSCULAR HGB CONC 31.6 g/dl (32-36); MEAN PLATELET VOLUME 9.6 fl (7.4-10.4); MONO % 13.3 % (0-9); PLATELET COUNT 88 K/uL (130-400); RED BLOOD COUNT 3.49 M/uL (3.80-5.40); WHITE BLOOD COUNT W/O DIFF 3.4 K/uL (4.2-12.2)
[2019-04-01 11:54] LABS: MEAN CORPUSCULAR HEMOGLOBIN 26.3 pg (27-33); RED CELL DISTRIBUTION WIDTH 19.3 % (11.5-14.5)
[2019-04-01 12:04] LABS: BLOOD UREA NITROGEN 7 mg/dL (8-23); CREATININE 0.6 mg/dL (0.5-0.9); EST GLOMERULAR FILTRATION RATE > 60 mL/min; INR 1.3; PARTIAL THROMBOPLASTIN TIME 28.7 SECONDS (24.5-39.1); PROTHROMBIN TIME (PATIENT) 12.7 SECONDS (9.5-12.1)
[2019-04-01 12:05] LABS: TOTAL PROTEIN 6.9 g/dL (6.6-8.7)
[2019-04-01 12:06] LABS: GLUCOSE,RANDOM 187 mg/dL (74-109)
[2019-04-01 12:09] LABS: ALB/GLOB RATIO 0.9 (1.1-1.8); ALBUMIN 3.3 g/dL (4.0-5.0); ALKALINE PHOSPHATASE 112 U/L (35-104); ALT/SGPT 16 U/L (<33); AST/SGOT 41 U/L (10.0-35.0)
== END 2019-04-01 14:17 | disposition left against medical advice (07) ==
LOC: ER 11:21
DX: R07.2 Precordial pain (principal); R06.02 Shortness of breath; E04.1 Nontoxic single thyroid nodule; R79.89 Other specified abnormal findings of blood chemistry; K76.89 Other specified diseases of liver; J44.9 Chronic obstructive pulmonary disease, unspecified; I10 Essential (primary) hypertension; E11.9 Type 2 diabetes mellitus without complications; Z87.891 Personal history of nicotine dependence; Z53.20 Procedure and treatment not carried out because of patient's decision for unspecified reasons; Z79.84 Long term (current) use of oral hypoglycemic drugs
CPT/HCPCS: 99284 ×2; 85025; 85730; 85610; 80053; 84484; 85379; 71275; 93005; 93010; Q9967

== ENCOUNTER 2019-06-08 19:50 | Emergency (ER) | payer MEDICARE, OTHER ==
--- NOTE | 2019-06-08 20:36 | Emergency Department Record ---
History of Present Illness - General Chief complaint: Pain Stated complaint: FALL/SHOULDER INJURY Time Seen by Provider: 06/08/19 20:01 Source: Patient Mode of Arrival: Stretcher Limitations: No limitations - History of Present Illness Initial comments: pt missed a step and fell injuring her l shoulder. she also hit her head. no loc. she heard a crack when she fell Complaint: Extremity pain Onset/Timin -: Minutes(s) Location: Left, Shoulder History of Same: No Radiation: None Severity scale (1-10): 6 Quality: Sharp Consistency: Constant Improves with: Nothing Worsens with: Exertion Associated Symptoms: Denies other symptoms - Related Data Previous Rx's Medication Instructions Recorded Hydrocodone/Acetaminophen [[place] 1 each PO Q6HR #10 tablet 06/08/19 5-325 Tablet] Allergies Allergy/AdvReac Type Severity Reaction Status Date / Time infliximab [From REMICADE] Allergy Unknown ANAPHYLAXIS Verified 06/08/19 20:02 meperidine Allergy Unknown ANAPHYLAXIS Verified 06/08/19 20:02 pantoprazole Allergy Unknown HIVES Verified 06/08/19 20:02 Penicillins [PENICILLINS] Allergy Unknown ANAPHYLAXIS Verified 06/08/19 20:02 prochlorperazine Allergy Unknown loss of Verified 06/08/19 20:02 muscle control Proton Pump Inhibitors Allergy Unknown HIVES Verified 06/08/19 20:02 Travel Screening - Travel/Exposure Within Last 30 Days Have you traveled within the last 30 days?: No - Travel/Exposure Within Last Year Have you traveled outside the [place] in the last year?: No - Additonal Travel Details Have you been exposed to anyone with a communicable illness?: No - Travel Symptoms Symptom Screening: None Review of Systems Reviewed: No additional complaints except as noted below Constitutional: Reports: As per HPI. Denies: Chills, Fever, Malaise, Night sweats, Weakness, Weight change Eyes: Reports: As per HPI. Denies: Eye discharge, Eye pain, Photophobia, Vision change ENT: Reports: As per HPI. Denies: Congestion, Dental pain, Ear pain, Epistaxis, Hearing loss, Throat pain Respiratory: Reports: As per HPI. Denies: Cough, Dyspnea, Hemoptysis, Stridor, Wheezes Cardiovascular: Reports: As per HPI. Denies: Arrhythmia, Chest pain, Dyspnea on exertion, Edema, Murmurs, Orthopnea, Palpitations, Paroxysmal nocturnal dyspnea, Rheumatic Fever, Syncope Endocrine: Reports: As per HPI. Denies: Fatigue, Heat or cold intolerance, Polydipsia, Polyuria Gastrointestinal: Reports: As per HPI. Denies: Abdominal pain, Constipation, Diarrhea, Hematemesis, Hematochezia, Melena, Nausea, Vomiting Genitourinary: Reports: As per HPI. Denies: Abnormal menses, Discharge, Dyspareunia, Dysuria, Frequency, Hematuria, Incontinence, Retention, Urgency Musculoskeletal: Reports: As per HPI. Denies: Arthralgia, Back pain, Gout, Joint swelling, Myalgia, Neck pain Skin: Reports: As per HPI. Denies: Bruising, Change in color, Change in hair/nails, Lesions, Pruritus, Rash Neurological: Reports: As per HPI. Denies: Abnormal gait, Confusion, Headache, Numbness, Paresthesias, Seizure, Tingling, Tremors, Vertigo, Weakness Psychiatric: Reports: As per HPI. Denies: Anxiety, Auditory hallucinations, Depression, Homicidal thoughts, Suicidal thoughts, Visual hallucinations Hematological/Lymphatic: Reports: As per HPI. Denies: Anemia, Blood Clots, Easy bleeding, Easy bruising, Swollen glands Past Medical History - SOCIAL HISTORY Smoking Status: Former smoker Alcohol Use: Rare Drug Use: None - RESPIRATORY Hx Respiratory Disorders: Yes Hx Asthma: Yes Hx Bronchitis: Yes Hx COPD: Yes Hx Dyspnea: Yes Hx Pneumonia: Yes Hx Pulmonary Embolism: No Hx Sleep Apnea: Yes Hx Tuberculosis: No - CARDIOVASCULAR Hx Cardio Disorders: No Hx Hypertension: Yes - NEURO Hx Neuro Disorders: Yes Hx Headaches: Yes - GI Hx GI Disorders: Yes Hx Crohn's Disease: Yes Hx GI Bleed: Yes Hx Rectal Bleeding: Yes Hx Ulcer: Yes - Hx Genitourinary Disorders: No - ENDOCRINE Hx Endocrine Disorders: Yes Hx Diabetes: Yes (takes po meds) Hx Thyroid Disease: No - MUSCULOSKELETAL Hx Musculoskeletal Disorders: Yes Hx Arthritis: Yes Hx Fibromyalgia: Yes Hx Musculoskeletal Disease: Yes Comment:: knees and hips bad - PSYCH Hx Psych Problems: Yes Hx Anxiety: Yes Hx Depression: Yes - HEMATOLOGY/ONCOLOGY Hx Hematology/Oncology Disorders: No Family Medical History Any Significant Family History?: Yes Hx Cancer: Mother, Brother/Sister, Grandparents Hx Heart Disease: Father Hx Resp Disorders: Brother/Sister, Grandparents Physical Exam - General General Appearance: Alert, Oriented x3, Cooperative, Mild distress - Head Head exam: Normal inspection - Eye Eye exam: Normal appearance, PERRL, EOMI Pupils: Normal accommodation - ENT ENT exam: Normal exam, Mucous membranes moist, Normal external ear exam, Normal orophraynx Ear exam: Normal external inspection. negative: External canal tenderness Nasal Exam: Normal inspection. negative: Discharge, Sinus tenderness Mouth exam: Normal external inspection, Tongue normal Teeth exam: Normal inspection. negative: Dental caries Throat exam: Normal inspection. negative: Tonsillar erythema, Tonsillar exudate - Neck Neck exam: Normal inspection, Full ROM. negative: Tenderness - Respiratory Respiratory exam: Normal lung sounds bilaterally. negative: Respiratory distress - Cardiovascular Cardiovascular Exam: Regular rate, Normal rhythm, Normal heart sounds - GI/Abdominal GI/Abdominal exam: Soft, Normal bowel sounds. negative: Tenderness - Rectal Rectal exam: Deferred - exam: Deferred - Extremities Extremities exam: Normal capillary refill, Tenderness (l shoulder). negative: Normal inspection, Full ROM - Back Back exam: Reports: Normal inspection, Full ROM. Denies: Muscle spasm, Rash noted, Tenderness - Neurological Neurological exam: Alert, CN II-XII intact, Normal gait, Oriented X3 - Psychiatric Psychiatric exam: Normal affect, Normal mood - Skin Skin exam: Dry, Intact, Normal color, Warm Course Vital Signs 06/08/19 19:55 Temperature 99.3 F Pulse Rate [ 87 Right] Respiratory 18 Rate Blood Pressure 96/46 [Right] Pulse Ox 95 - Reevaluation(s) Reevaluation #1: 06/08/19 21:30 d/w dr thompson who will see pt in 2 days Disposition Disposition: Discharge Clinical Impression: Fracture, humerus closed Qualifiers: Encounter type: initial encounter Humerus Location: proximal Fracture morphology: unspecified fracture morphology Laterality: left Qualified Code(s): S42.202A - Unspecified fracture of upper end of left humerus, initial encounter for closed fracture Head injury Qualifiers: Encounter type: initial encounter Qualified Code(s): S09.90XA - Unspecified injury of head, initial encounter Disposition: Home, Self-Care Condition: (1) Good Instructions: Proximal Humerus Fracture (ED) Additional Instructions: follow up with dr thompson on . ice and elevation. motrin with food. Prescriptions: Hydrocodone/Acetaminophen [Metaline 5-325 Tablet] 1 each PO Q6HR #10 tablet Referrals: Lambert Thompson [DOCTOR OF OSTEOPATH] - [facility] [Provider Group] Forms: Patient Portal Access Quality - Quality Measures Quality Measures: N/A - Blood Pressure Screening Does Patient Have Any of the Following: No Blood Pressure Classification: Normal BP Reading Systolic Measurement: 96 Diastolic Measurement: 46 Screening for High Blood Pressure: < Normal BP, F/U Not Required > [G8783]
[2019-06-08] MEDS ORDERED: HYDROMORPHONE HCL 2 MG/ML VIAL IVP ONE ×2 (21:06→21:50)
[2019-06-08] MEDS ORDERED: HYDROCODONE/APAP 5/325MG TABLET PO ONE (21:51)
--- NOTE | 2019-06-09 12:28 | RADIOLOGY REPORT ---
EXAM: LEFT SHOULDER HISTORY: PATIENT FELL GOING UP STAIRS WITH LEFT SHOULDER PAIN. TECHNIQUE: Three views of the left shoulder were obtained. Comparison: No prior left shoulder series. FINDINGS: There is a fracture of the left humeral head and neck which is probably comminuted. No dislocation at the glenohumeral joint identified. The acromioclavicular joint appears intact. There is some lateral displacement of the major humeral head fracture fragment relative to the major humeral shaft fracture fragment. This displacement appears to be up to approximately 12 mm. IMPRESSION: COMMINUTED FRACTURE OF THE PROXIMAL LEFT HUMERUS. JOB NUMBER: [id number] [facility]
--- NOTE | 2019-06-09 12:35 | CT SCAN REPORT ---
EXAM: EMERGENCY HEAD CT HISTORY: PATIENT FELL WITH HEAD INJURY. TECHNIQUE: Axial CT scan of the head was performed without IV contrast. Comparison: No prior head CT with which to compare. Encounter: Initial. FINDINGS: No definite acute intracranial hemorrhage identified. No focal mass effect or midline shift evident. Mild basal ganglia calcification bilaterally. Moderate generalized atrophy and moderate chronic appearing deep white matter changes, nonspecific, but likely representing some chronic small vessel deep white matter ischemic disease. No definite acute infarct or intracranial mass lesion is seen. There is probably a small old blowout fracture of the medial wall of the right orbit. Small air fluid level in the right maxillary sinus. There is probably spina bifida of C1 posteriorly partially seen on the lower most images. Opacification of numerous mastoid air cells on the left, possibly with some opacification in the left middle ear cavity as well. There also appears to be old fracture deformity of the nasal bone. No appreciable overlying soft tissue swelling currently to suggest an acute nasal bone fracture. IMPRESSION: 1. NO DEFINITE ACUTE INTRACRANIAL HEMORRHAGE OR FOCAL MASS EFFECT EVIDENT. 2. GENERALIZED ATROPHY WITH CHRONIC APPEARING DEEP WHITE MATTER CHANGES. 3. OPACIFICATION OF SEVERAL LEFT MASTOID AIR CELLS PROBABLY WITH SOME OPACIFICATION IN THE LEFT MIDDLE EAR CAVITY WELL. 4. SMALL AIR FLUID LEVEL RIGHT MAXILLARY SINUS. 5. PROBABLE SMALL OLD BLOWOUT FRACTURE MEDIAL WALL RIGHT ORBIT. JOB NUMBER: [id number] AND [id number] [facility]
== END 2019-06-08 22:13 | disposition home or self-care (01) ==
LOC: ER 19:50
DX: S42.202A Unspecified fracture of upper end of left humerus, initial encounter for closed fracture (principal); S09.90XA Unspecified injury of head, initial encounter; W10.9XXA Fall (on) (from) unspecified stairs and steps, initial encounter; Y92.009 Unspecified place in unspecified non-institutional (private) residence as the place of occurrence of the external cause; I50.9 Heart failure, unspecified; I10 Essential (primary) hypertension; E11.9 Type 2 diabetes mellitus without complications; Z87.891 Personal history of nicotine dependence
CPT/HCPCS: 70450; 96374; 96376; 99284

== ENCOUNTER 2019-06-22 17:02 | Emergency (ER) | payer MEDICARE, OTHER ==
--- NOTE | 2019-06-22 17:51 | Emergency Department Record ---
History of Present Illness - General Source: Patient, Family (daughter) Mode of Arrival: Ambulatory - History of Present Illness Initial comments: The patient states that she fell on June 08 fracturing her left humerus. She is in a sling and seeing Dr. Sellers for it. The visiting nurse today found her left breast to be red and draining, so she sent her here. The patient denies fevers, cough, sore throat headache, abdominal pain, calf tenderness. She states her left nipple area has begun to drain so she placed a bandaide over it. She also found her right breast to be red and infected as well. Onset/Timin -: Days(s) Location: Generalized, Chest Severity scale (1-10): 8 Quality: Aching Consistency: Constant <SAMSON ODEN - Last Filed: 06/22/19 20:03> <ANA PAULA BARRETT - Last Filed: 06/22/19 23:47> - General Chief complaint: Abscess Stated complaint: LT BREAST INFECTION Time Seen by Provider: 06/22/19 17:48 - Related Data Previous Rx's Medication Instructions Recorded Hydrocodone/Acetaminophen [[place] 1 each PO Q6HR #10 tablet 06/08/19 5-325 Tablet] Allergies Allergy/AdvReac Type Severity Reaction Status Date / Time infliximab [From REMICADE] Allergy Unknown ANAPHYLAXIS Verified 06/22/19 17:11 meperidine Allergy Unknown ANAPHYLAXIS Verified 06/22/19 17:11 pantoprazole Allergy Unknown HIVES Verified 06/22/19 17:11 Penicillins [PENICILLINS] Allergy Unknown ANAPHYLAXIS Verified 06/22/19 17:11 prochlorperazine Allergy Unknown loss of Verified 06/22/19 17:11 muscle control Proton Pump Inhibitors Allergy Unknown HIVES Verified 06/22/19 17:11 Travel Screening - Travel/Exposure Within Last 30 Days Have you traveled within the last 30 days?: No - Travel/Exposure Within Last Year Have you traveled outside the [place] in the last year?: No - Additonal Travel Details Have you been exposed to anyone with a communicable illness?: No - Travel Symptoms Symptom Screening: None <SAMSON ODEN - Last Filed: 06/22/19 20:03> Review of Systems Reviewed: No additional complaints except as noted below Constitutional: Reports: As per HPI. Denies: Chills, Fever, Malaise, Night sweats, Weakness, Weight change Eyes: Reports: As per HPI. Denies: Eye discharge, Eye pain, Photophobia, Vision change ENT: Reports: As per HPI. Denies: Congestion, Dental pain, Ear pain, Epistaxis, Hearing loss, Throat pain Respiratory: Reports: As per HPI. Denies: Cough, Dyspnea, Hemoptysis, Stridor, Wheezes Cardiovascular: Reports: As per HPI. Denies: Arrhythmia, Chest pain, Dyspnea on exertion, Edema, Murmurs, Orthopnea, Palpitations, Paroxysmal nocturnal dyspnea, Rheumatic Fever, Syncope Endocrine: Reports: As per HPI. Denies: Fatigue, Heat or cold intolerance, Polydipsia, Polyuria Gastrointestinal: Reports: As per HPI. Denies: Abdominal pain, Constipation, Diarrhea, Hematemesis, Hematochezia, Melena, Nausea, Vomiting Genitourinary: Reports: As per HPI. Denies: Abnormal menses, Discharge, Dyspareunia, Dysuria, Frequency, Hematuria, Incontinence, Retention, Urgency Musculoskeletal: Reports: As per HPI. Denies: Arthralgia, Back pain, Gout, Joint swelling, Myalgia, Neck pain Skin: Reports: As per HPI. Denies: Bruising, Change in color, Change in hair/nails, Lesions, Pruritus, Rash Neurological: Reports: As per HPI. Denies: Abnormal gait, Confusion, Headache, Numbness, Paresthesias, Seizure, Tingling, Tremors, Vertigo, Weakness Psychiatric: Reports: As per HPI. Denies: Anxiety, Auditory hallucinations, Depression, Homicidal thoughts, Suicidal thoughts, Visual hallucinations Hematological/Lymphatic: Reports: As per HPI. Denies: Anemia, Blood Clots, Easy bleeding, Easy bruising, Swollen glands <SAMSON ODEN - Last Filed: 06/22/19 20:03> Past Medical History - SOCIAL HISTORY Smoking Status: Former smoker Alcohol Use: None Drug Use: None - RESPIRATORY Hx Respiratory Disorders: Yes Hx Asthma: Yes Hx Bronchitis: Yes Hx COPD: Yes Hx Dyspnea: Yes Hx Pneumonia: Yes Hx Pulmonary Embolism: No Hx Sleep Apnea: Yes Hx Tuberculosis: No - CARDIOVASCULAR Hx Cardio Disorders: No Hx Hypertension: Yes - NEURO Hx Neuro Disorders: Yes Hx Headaches: Yes - GI Hx GI Disorders: Yes Hx Crohn's Disease: Yes Hx GI Bleed: Yes Hx Rectal Bleeding: Yes Hx Ulcer: Yes - Hx Genitourinary Disorders: No - ENDOCRINE Hx Endocrine Disorders: Yes Hx Diabetes: Yes (takes po meds) Hx Thyroid Disease: No - MUSCULOSKELETAL Hx Musculoskeletal Disorders: Yes Hx Arthritis: Yes Hx Fibromyalgia: Yes Hx Musculoskeletal Disease: Yes Comment:: knees and hips bad - PSYCH Hx Psych Problems: Yes Hx Anxiety: Yes Hx Depression: Yes - HEMATOLOGY/ONCOLOGY Hx Hematology/Oncology Disorders: No <SAMSON ODEN - Last Filed: 06/22/19 20:03> Family Medical History Any Significant Family History?: No Hx Cancer: Mother, Brother/Sister, Grandparents Hx Heart Disease: Father Hx Resp Disorders: Brother/Sister, Grandparents <SAMSON ODEN - Last Filed: 06/22/19 20:03> Physical Exam - General General Appearance: Alert, Oriented x3, Cooperative, Mild distress, Other (obese with strong odor of fungus in room) - Head Head exam: Normal inspection - Eye Eye exam: Normal appearance, PERRL, EOMI. negative: Conjunctival injection, Nystagmus Pupils: Normal accommodation - ENT ENT exam: Normal exam, Mucous membranes moist, Normal external ear exam, Normal orophraynx, TM's normal bilaterally Ear exam: Normal external inspection. negative: External canal tenderness Nasal Exam: Normal inspection. negative: Discharge, Sinus tenderness Mouth exam: Normal external inspection, Tongue normal Teeth exam: Normal inspection. negative: Dental caries Throat exam: Normal inspection. negative: Tonsillar erythema, Tonsillar exudate - Neck Neck exam: Normal inspection, Full ROM. negative: Lymphadenopathy, Meningismus, Tenderness - Respiratory Respiratory exam: Normal lung sounds bilaterally, Other (; bilateral breasts with fungal skin infection to large areas of skin folds both breasts.Dorsal aspects of breast with cellulitis left greater than right. Left nipple has recent brown tinged discharge on dressing that was covering it. ). negative: Accessory muscle use, Chest wall tenderness, Respiratory distress - Cardiovascular Cardiovascular Exam: Normal rhythm, Normal heart sounds, Tachycardia - GI/Abdominal GI/Abdominal exam: Soft, Normal bowel sounds. negative: Tenderness - Rectal Rectal exam: Deferred - exam: Deferred - Extremities Extremities exam: Normal inspection, Full ROM, Normal capillary refill. negative: Calf tenderness, Pedal edema, Tenderness - Back Back exam: Reports: Normal inspection, Full ROM. Denies: CVA tenderness (R), CVA tenderness (L), Muscle spasm, Rash noted, Tenderness - Neurological Neurological exam: Alert, Normal gait, Oriented X3, Reflexes normal - Psychiatric Psychiatric exam: Normal affect, Normal mood - Skin Skin exam: Dry, Intact, Normal color, Warm <SAMSON ODEN - Last Filed: 06/22/19 20:03> Course Vital Signs 06/22/19 17:04 Temperature 98.7 F Pulse Rate 91 H Respiratory 20 Rate Blood Pressure 139/67 Pulse Ox 98 - Reevaluation(s) Reevaluation #1: Patient was unable to be scanned in our scanner due to her size. Returned from CT scan. Patient is requesting transfer site to be [facility]. She was given a norco 7.5 for her humerus fracture. Awaiting transfer. 06/22/19 19:09 06/22/19 19:18 Reevaluation #2: DW Dr. Magaña who accepts patient in transfer. Patient aware and in agreement. 06/22/19 20:05 <SAMSON ODEN - Last Filed: 06/22/19 20:03> Vital Signs 06/22/19 17:04 Temperature 98.7 F Pulse Rate 91 H Respiratory 20 Rate Blood Pressure 139/67 Pulse Ox 98 - Reevaluation(s) Reevaluation #3: 06/22/19 23:46 Patient's medical record was charted under my username by Dr. Samson Mcghee I do not participate in the care of this patient. Anish Barrett D.O. <ANA PAULA BARRTET - Last Filed: 06/22/19 23:47> Medical Decision Making - Management Options MDM Management: Additional Work-up Planned (e.g. ADM/Transfer/OP Study) (Transfer to [facility] for direct admit.) - Data Complexity MDM Data: Labs Ordered and/or Reviewed, X-Ray Ordered and/or Reviewed (CT scan unable to be performed due to patient's size.) - Lab Data Result diagrams: 06/22/19 17:30 06/22/19 17:30 <SAMSON ODEN - Last Filed: 06/22/19 20:03> - Lab Data Result diagrams: 06/22/19 17:30 06/22/19 17:30 Lab Results 06/22/19 06/22/19 Range/Units 17:30 17:30 WBC 8.6 (4.2-12.2) K/uL RBC 2.94 L (3.80-5.40) M/uL Hgb 7.4 L (11.6-16.0) gm/dl Hct 23.9 L (35.0-47.0) % MCV 81.3 (81-97) fl MCH 25.1 L (27-33) pg MCHC 31.0 L (32-36) g/dl RDW 21.0 H (11.5-14.5) % Plt Count 172 (130-400) K/uL MPV 8.7 (7.4-10.4) fl Gran % 73.4 (47-80) % Lymphocytes % 9.2 L (16-45) % Monocytes % 14.7 H (0-9) % Eosinophils % 2.4 (0-6) % Basophils % 0.3 (0-6) % Absolute Neutrophils 6.29 Sodium 130 L (136-145) mmol/L Potassium 4.2 (3.4-4.5) mmol/L Chloride 95 L (98-107) mmol/L Carbon Dioxide 19.0 L (22-29) mmol/L Anion Gap 16.0 (7-16) BUN 19 (8-23) mg/dL Creatinine 1.1 H (0.5-0.9) mg/dL Estimated GFR 53 mL/min Random Glucose 116 H (74-109) mg/dL Calcium 8.4 L (8.8-10.2) mg/dL Total Bilirubin 1.10 H (0.2-1.0) mg/dL AST 38 H (10.0-35.0) U/L ALT 14 (<33) U/L Alkaline Phosphatase 140 H (35-104) U/L Total Protein 6.9 (6.6-8.7) g/dL Albumin 3.0 L (4.0-5.0) g/dL Globulin 3.9 (1.4-4.8) gm/dL Albumin/Globulin Ratio 0.8 L (1.1-1.8) <ANA PAULA BARRETT - Last Filed: 06/22/19 23:47> Disposition Disposition: Transfer Decision to Admit: Admit from ER Decision to Admit Time: 20:06 Transfer To: [facility] Reason For Transfer: acuity of care; need for larger CT scan Accepting Physician: Dr. Magaña Time Discussed w/Accepting Physician: 20:06 <SAMSON ODEN - Last Filed: 06/22/19 20:03> <ANA PAULA BARRETT - Last Filed: 06/22/19 23:47> Clinical Impression: Cellulitis of right breast, Cellulitis of left breast, Tinea corporis, Morbid obesity Fracture, humerus closed Qualifiers: Encounter type: subsequent encounter Humerus Location: proximal Fracture morphology: other fracture Fracture alignment: displaced Laterality: left Fracture healing: with routine healing Qualified Code(s): S42.292D - Other di splaced fracture of upper end of left humerus, subsequent encounter for fracture with routine healing Disposition: Acute Care Hospital Transfer Condition: (2) Stable Forms: Patient Portal Access Quality - Quality Measures Quality Measures: N/A - Blunt Head Trauma - Adult ICD10 Codes Entered: Yes Utilization of CT for Minor Blunt Head Trauma: Not Eligible For Measure Not Eligible Reason: CT Not Ordered - Blood Pressure Screening Does Patient Have Any of the Following: No Blood Pressure Classification: Pre-Hypertensive BP Reading Systolic Measurement: 139 Diastolic Measurement: 67 Screening for High Blood Pressure: < Pre-Hypertensive BP, F/U Documented > [G8950] Pre-Hypertensive Follow-up Interventions: Follow-up with rescreen every year. <SAMSON ODEN - Last Filed: 06/22/19 20:03> - Quality Measures Quality Measures: N/A - Blood Pressure Screening Does Patient Have Any of the Following: No Blood Pressure Classification: Pre-Hypertensive BP Reading Systolic Measurement: 139 Diastolic Measurement: 67 Screening for High Blood Pressure: < Pre-Hypertensive BP, F/U Documented > [G8950] Pre-Hypertensive Follow-up Interventions: Referral to alternative/primary care provider. <ANA PAULA BARRETT - Last Filed: 06/22/19 23:47>
[2019-06-22] MEDS ORDERED: 0.9 % SODIUM CHLORIDE 1,000 ML BAG IV ONE (18:12)
[2019-06-22] MEDS ORDERED: FLUCONAZOLE 100 MG TABLET PO ONE (18:14)
[2019-06-22] MEDS ORDERED: CEFAZOLIN 2 Gram 2 GM/50 ML BAG IVPB ONE (18:14)
[2019-06-22 18:33] LABS: ABSOLUTE NEUTROPHIL COUNT 6.29; BASO % 0.3 % (0-6); EOS % 2.4 % (0-6); GRAN % 73.4 % (47-80); HEMATOCRIT 23.9 % (35.0-47.0); HEMOGLOBIN 7.4 gm/dl (11.6-16.0); LYMPH % 9.2 % (16-45); MEAN CELL VOLUME 81.3 fl (81-97); MEAN PLATELET VOLUME 8.7 fl (7.4-10.4); MONO % 14.7 % (0-9); PLATELET COUNT 172 K/uL (130-400); RED BLOOD COUNT 2.94 M/uL (3.80-5.40); WHITE BLOOD COUNT W/O DIFF 8.6 K/uL (4.2-12.2)
[2019-06-22 18:34] LABS: MEAN CORPUSCULAR HEMOGLOBIN 25.1 pg (27-33)
[2019-06-22 18:45] LABS: BILIRUBIN,TOTAL 1.1 mg/dL (0.2-1.0); CREATININE 1.1 mg/dL (0.5-0.9)
[2019-06-22 18:46] LABS: TOTAL PROTEIN 6.9 g/dL (6.6-8.7)
[2019-06-22 18:51] LABS: ALB/GLOB RATIO 0.8 (1.1-1.8)
[2019-06-22] MEDS ORDERED: HYDROCODONE/APAP 7.5/325MG TABLET PO ONE (19:07)
== END 2019-06-22 20:37 | disposition short-term general hospital (02) ==
LOC: ER 17:02
DX: N61.0 Mastitis without abscess (principal); E11.9 Type 2 diabetes mellitus without complications; B35.4 Tinea corporis; I10 Essential (primary) hypertension; S42.292D Other displaced fracture of upper end of left humerus, subsequent encounter for fracture with routine healing; J44.9 Chronic obstructive pulmonary disease, unspecified; Z87.891 Personal history of nicotine dependence; E66.01 Morbid (severe) obesity due to excess calories
CPT/HCPCS: 80053; 85025; 96365; 96366; 99285

== ENCOUNTER 2019-07-27 19:29 | Emergency (ER) | payer MEDICARE, OTHER ==
--- NOTE | 2019-07-27 19:45 | Emergency Department Record ---
History of Present Illness - General Chief complaint: Extremity Problem Stated complaint: LEG SWELLING Time Seen by Provider: 07/27/19 19:38 Source: Patient Mode of Arrival: Ambulatory Limitations: No limitations - History of Present Illness Initial comments: 68 yo female presents with one day of bilateral lower leg swelling and redness. She states she has had some subjective fevers as well. She noted some warmth. She recently was admitted to [facility] for anemia requiring blood transfusions. She states she has had similar cellulitis and swelling of the legs in the past. She is currently on Keflex and Bactrim DS for an upper respiratory infection with 5 more days to go. PCP is the [facility]. She did state bloody stools returned yesterday as well. No pain with bowel movements. She does take Motrin for recent shoulder surgery. Onset/Timin -: Days(s) Location: Left, Right, Lower Leg History of Same: Yes -: Yes Myalgia Severity scale (1-10): 7 Quality: Aching, Other Consistency: Constant Improves with: Medication Worsens with: Exertion Associated Symptoms: Denies other symptoms - Related Data Allergies Allergy/AdvReac Type Severity Reaction Status Date / Time infliximab [From REMICADE] Allergy Unknown ANAPHYLAXIS Verified 07/27/19 19:37 meperidine Allergy Unknown ANAPHYLAXIS Verified 07/27/19 19:37 pantoprazole Allergy Unknown HIVES Verified 07/27/19 19:37 Penicillins [PENICILLINS] Allergy Unknown ANAPHYLAXIS Verified 07/27/19 19:37 prochlorperazine Allergy Unknown loss of Verified 07/27/19 19:37 muscle control Proton Pump Inhibitors Allergy Unknown HIVES Verified 07/27/19 19:37 Travel Screening - Travel/Exposure Within Last 30 Days Have you traveled within the last 30 days?: No - Travel/Exposure Within Last Year Have you traveled outside the [place] in the last year?: No - Additonal Travel Details Have you been exposed to anyone with a communicable illness?: No - Travel Symptoms Symptom Screening: None Review of Systems Constitutional: Reports: Fever, Malaise. Denies: Chills Eyes: Denies: Eye discharge, Eye pain, Vision change ENT: Denies: Congestion, Throat pain Respiratory: Reports: Cough. Denies: Dyspnea, Hemoptysis Cardiovascular: Denies: Chest pain, Palpitations, Syncope Endocrine: Denies: Fatigue, Polydipsia, Polyuria Gastrointestinal: Denies: Abdominal pain, Diarrhea, Nausea, Vomiting Genitourinary: Denies: Dysuria, Urgency Musculoskeletal: Reports: Myalgia. Denies: Arthralgia, Back pain Skin: Reports: As per HPI, Change in color, Rash. Denies: Bruising Neurological: Denies: Headache Psychiatric: Denies: Anxiety Hematological/Lymphatic: Denies: Easy bleeding, Easy bruising Past Medical History - SOCIAL HISTORY Smoking Status: Former smoker Alcohol Use: Occasional Drug Use: None - RESPIRATORY Hx Respiratory Disorders: Yes Hx Asthma: Yes Hx Bronchitis: Yes Hx COPD: Yes Hx Dyspnea: Yes Hx Pneumonia: Yes Hx Pulmonary Embolism: No Hx Sleep Apnea: Yes Hx Tuberculosis: No - CARDIOVASCULAR Hx Cardio Disorders: No Hx Hypertension: Yes - NEURO Hx Neuro Disorders: Yes Hx Headaches: Yes - GI Hx GI Disorders: Yes Hx Crohn's Disease: Yes Hx GI Bleed: Yes Hx Rectal Bleeding: Yes Hx Ulcer: Yes - Hx Genitourinary Disorders: No - ENDOCRINE Hx Endocrine Disorders: Yes Hx Diabetes: Yes (takes po meds) Hx Thyroid Disease: No - MUSCULOSKELETAL Hx Musculoskeletal Disorders: Yes Hx Arthritis: Yes Hx Fibromyalgia: Yes Hx Musculoskeletal Disease: Yes Comment:: knees and hips bad - PSYCH Hx Psych Problems: Yes Hx Anxiety: Yes Hx Depression: Yes - HEMATOLOGY/ONCOLOGY Hx Hematology/Oncology Disorders: No Family Medical History Any Significant Family History?: Yes Hx Cancer: Mother, Brother/Sister, Grandparents Hx Heart Disease: Father Hx Resp Disorders: Brother/Sister, Grandparents Physical Exam - General General Appearance: Alert, Oriented x3, Cooperative, No acute distress Limitations: No limitations - Head Head exam: Atraumatic, Normal inspection - Eye Eye exam: Normal appearance, PERRL. negative: Conjunctival injection, Scleral icterus - ENT ENT exam: Normal exam, Mucous membranes moist Ear exam: Normal external inspection Nasal Exam: Normal inspection Mouth exam: Normal external inspection - Neck Neck exam: Normal inspection, Full ROM. negative: Lymphadenopathy - Respiratory Respiratory exam: Rhonchi. negative: Normal lung sounds bilaterally, Accessory muscle use, Decreased breath sounds, Prolonged expiratory, Rales, Respiratory distress, Wheezes - Cardiovascular Cardiovascular Exam: Regular rate, Normal rhythm, Normal heart sounds Peripheral Pulses: 2+: Radial (R), Radial (L) - GI/Abdominal GI/Abdominal exam: Soft. negative: Tenderness - Rectal Rectal exam: Deferred - exam: Deferred - Extremities Extremities exam: Calf tenderness, Pedal edema, Tenderness, Other (erythema, left greater than right). negative: Normal inspection - Back Back exam: Denies: CVA tenderness (R), CVA tenderness (L) - Neurological Neurological exam: Alert, Oriented X3 - Psychiatric Psychiatric exam: Normal affect, Normal mood. negative: Agitated, Anxious - Skin Skin exam: Dry, Erythema, Intact, Warm. negative: Normal color Course Vital Signs 07/27/19 19:31 Temperature 99.0 F Pulse Rate 98 H Respiratory 20 Rate Blood Pressure 120/62 Pulse Ox 100 - Reevaluation(s) Reevaluation #1: 07/27/19 19:57 EKG #1: 19:38 Rate: 89 Rhythm: sinus Keene: normal Intervals: normal ST segments: normal 07/27/19 21:02 The labs were reviewed Hgb is down again to 6.9 Given her GI bleed I recommend transfer since last admission at [facility] she required [address] Armenta of [facility] She accepts the patient for transfer 07/27/19 21:42 Per lab the patient may have an antibody and blood is not ready at time do transfer IV antibiotics given Medical Decision Making - Lab Data Result diagrams: 07/27/19 20:02 07/27/19 20:02 Disposition Disposition: Transfer Clinical Impression: GI bleed, Anemia Cellulitis Qualifiers: Site of cellulitis: extremity Site of cellulitis of extremity: lower extremity Laterality: unspecified laterality Qualified Code(s): L03.119 - Cellulitis of unspecified part of limb Disposition: Acute Care Hospital Transfer Transfer To: [facility] Reason For Transfer: GI bleed, cellulitis Accepting Physician: Kathi Time Discussed w/Accepting Physician: 21:04 Condition: (2) Stable Forms: Patient Portal Access Time of Disposition: 20:49 Quality - Quality Measures Quality Measures: N/A - Blood Pressure Screening Does Patient Have Any of the Following: No Blood Pressure Classification: Pre-Hypertensive BP Reading Systolic Measurement: 125 Diastolic Measurement: 49 Screening for High Blood Pressure: < Pre-Hypertensive BP, F/U Documented > [G8950] Pre-Hypertensive Follow-up Interventions: Referral to alternative/primary care provider.
[2019-07-27 20:17] LABS: ABSOLUTE NEUTROPHIL COUNT 2.83; BASO % 0.5 % (0-6); EOS % 2.9 % (0-6); GRAN % 69.2 % (47-80); LYMPH % 14.9 % (16-45); MEAN CORPUSCULAR HGB CONC 31.4 g/dl (32-36); MEAN PLATELET VOLUME 9.9 fl (7.4-10.4); MONO % 12.5 % (0-9); PLATELET COUNT 121 K/uL (130-400); RED BLOOD COUNT 2.65 M/uL (3.80-5.40); RED CELL DISTRIBUTION WIDTH 18.7 % (11.5-14.5); WHITE BLOOD COUNT W/O DIFF 4.1 K/uL (4.2-12.2)
[2019-07-27 20:25] LABS: BILIRUBIN,TOTAL 0.9 mg/dL (0.2-1.0); CREATININE 1.3 mg/dL (0.5-0.9); HEMOGLOBIN 6.9 gm/dl (11.6-16.0)
[2019-07-27 20:26] LABS: TOTAL PROTEIN 6.3 g/dL (6.6-8.7)
[2019-07-27 20:30] LABS: ALB/GLOB RATIO 0.7 (1.1-1.8); ALBUMIN 2.6 g/dL (4.0-5.0)
[2019-07-27 20:31] LABS: C-REACTIVE PROTEIN 4.13 mg/dL (<0.5)
[2019-07-27 20:33] LABS: NTpro B-NATRIURETIC PEPTIDE 304.6 pg/mL (<125)
[2019-07-27] MEDS ORDERED: CEFAZOLIN 1 Gram 1 GM/50 ML BAG IVPB ONE (20:51)
[2019-07-27 20:52] LABS: ERYTHROCYTE SEDIMENTATION RATE 76 mm/hr (0-30)
[2019-07-27] MEDS ORDERED: VANCOMYCIN 1.5GM/300ML PREMIX 1.5 GM/300 ML PIGGYBACK IVPB SCH (21:00)
[2019-07-27] MEDS ORDERED: HYDROCODONE/APAP 7.5/325MG TABLET PO ONE (21:21)
[2019-07-27 21:59] LABS: ABO GROUP O; RH TYPE POSITIVE
[2019-07-27 22:00] LABS: ANTIBODY SCREEN POSITIVE (NEGATIVE)
== END 2019-07-27 22:13 | disposition short-term general hospital (02) ==
LOC: ER 19:29
DX: D50.0 Iron deficiency anemia secondary to blood loss (chronic) (principal); L03.116 Cellulitis of left lower limb; L03.115 Cellulitis of right lower limb; J06.9 Acute upper respiratory infection, unspecified; E11.9 Type 2 diabetes mellitus without complications; Z79.84 Long term (current) use of oral hypoglycemic drugs; J44.9 Chronic obstructive pulmonary disease, unspecified; Z87.891 Personal history of nicotine dependence
CPT/HCPCS: 99285 ×2; 96365; 85025; 85651; 86140; 80053; 83880; 86900; 86901; 86850; 93005; 93010; J0690

== ENCOUNTER 2019-09-16 14:46 | Inpatient (IN) | payer MEDICARE, OTHER ==
--- NOTE | 2019-09-16 15:17 | Emergency Department Record ---
History of Present Illness - General Chief Complaint: Shortness of breath Stated Complaint: SOB Time Seen by Provider: 09/16/19 15:09 Source: Patient Mode of Arrival: EMS Limitations: No limitations - History of Present Illness Initial Comments: Pt to ED from home by EMS for complaint of DEANNA over the past 2-3 days with marked swelling of the legs. Pt is a smoker with hx of asthma/COPD but this is "different". She is HTN but no DM, never had MD or hx of CHF. There is no fever, but has cough that is non productive. Denies CP, nausea, vomiting, AP. Pt relates a hx of anemia of unknow cause running in the "7 range". She has had evaluation including colonscopy without answers. Denies blood in stool. Pt relates she is only able to tolerate walking short distances in the home without stopping to rest, she sleeps in a recliner as she is unable to sleep flat. Onset/Timin -: Days(s) Severity: Moderate Consistency: Intermittent Improves With: Rest Worsens With: Exertion Known History Of: Asthma, COPD, Recurrent pneumonia Associated Symptoms: lower extremity pain Treatments Prior to Arrival: Other Treatment Prior to Arrival Comment:: ventolin inhaler - Related Data Home Oxygen Therapy: Yes Home Oxygen Amount: 2 Liters Allergies Allergy/AdvReac Type Severity Reaction Status Date / Time infliximab [From REMICADE] Allergy Unknown ANAPHYLAXIS Verified 07/27/19 19:37 meperidine Allergy Unknown ANAPHYLAXIS Verified 07/27/19 19:37 Penicillins [PENICILLINS] Allergy Unknown ANAPHYLAXIS Verified 07/27/19 19:37 prochlorperazine Allergy Unknown loss of Verified 07/27/19 19:37 muscle control Travel Screening - Travel/Exposure Within Last 30 Days Have you traveled within the last 30 days?: No - Travel/Exposure Within Last Year Have you traveled outside the [place] in the last year?: No - Additonal Travel Details Have you been exposed to anyone with a communicable illness?: No - Travel Symptoms Symptom Screening: None Review of Systems Constitutional: Reports: Weakness. Denies: Chills, Fever Eyes: Denies: Eye discharge ENT: Denies: Congestion, Ear pain Respiratory: Reports: Cough, Dyspnea. Denies: Stridor, Wheezes Cardiovascular: Reports: Dyspnea on exertion, Orthopnea. Denies: Arrhythmia, Chest pain, Palpitations, Syncope Endocrine: Denies: Fatigue, Polyuria Gastrointestinal: Denies: Abdominal pain, Diarrhea, Nausea, Vomiting Musculoskeletal: Denies: Arthralgia Skin: Denies: Bruising, Rash Neurological: Denies: Headache, Seizure, Tremors Psychiatric: Denies: Anxiety, Homicidal thoughts Hematological/Lymphatic: Reports: As per HPI, Anemia Past Medical History - SOCIAL HISTORY Smoking Status: Former smoker - RESPIRATORY Hx Respiratory Disorders: Yes Hx Asthma: Yes Hx Bronchitis: Yes Hx COPD: Yes Hx Dyspnea: Yes Hx Pneumonia: Yes Hx Pulmonary Embolism: No Hx Sleep Apnea: Yes Hx Tuberculosis: No - CARDIOVASCULAR Hx Cardio Disorders: No Hx Hypertension: Yes - NEURO Hx Neuro Disorders: Yes Hx Headaches: Yes - GI Hx GI Disorders: Yes Hx Crohn's Disease: Yes Hx GI Bleed: Yes Hx Rectal Bleeding: Yes Hx Ulcer: Yes - Hx Genitourinary Disorders: No - ENDOCRINE Hx Endocrine Disorders: Yes Hx Diabetes: Yes (takes po meds) Hx Thyroid Disease: No - MUSCULOSKELETAL Hx Musculoskeletal Disorders: Yes Hx Arthritis: Yes Hx Fibromyalgia: Yes Hx Musculoskeletal Disease: Yes Comment:: knees and hips bad - PSYCH Hx Psych Problems: Yes Hx Anxiety: Yes Hx Depression: Yes - HEMATOLOGY/ONCOLOGY Hx Hematology/Oncology Disorders: No Family Medical History Any Significant Family History?: Yes Hx Cancer: Mother, Brother/Sister, Grandparents Hx Heart Disease: Father Hx Resp Disorders: Brother/Sister, Grandparents Physical Exam - General General Appearance: Alert, Oriented x3, Cooperative, Mild distress - Head Head exam: Atraumatic, Normal inspection - Eye Eye exam: Normal appearance, PERRL - ENT ENT exam: Mucous membranes moist Ear exam: Normal external inspection Nasal Exam: Normal inspection - Neck Neck exam: Normal inspection. negative: Lymphadenopathy, Tenderness - Respiratory Respiratory exam: Normal lung sounds bilaterally. negative: Rhonchi, Wheezes - Cardiovascular Cardiovascular Exam: Regular rate, Normal rhythm, Systolic murmur Peripheral Pulses: 2+: Radial (R), Radial (L) - GI/Abdominal GI/Abdominal exam: Soft. negative: Tenderness (obese) - Rectal Rectal exam: Heme (-) stool, Normal rectal tone - Extremities Extremities exam: Pedal edema (pt with skinc hanges typical of venous insuf, pitting edeam to hips bilateral. No open sores) - Back Back exam: Reports: Normal inspection - Neurological Neurological exam: Alert, Oriented X3. negative: Motor sensory deficit - Psychiatric Psychiatric exam: Normal affect, Normal mood. negative: Anxious, Depressed - Skin Skin exam: Normal color (chronic skin changes to legs venous insuf. ) Course Vital Signs 09/16/19 14:49 Temperature 97.9 F Pulse Rate 86 Respiratory 30 H Rate Blood Pressure 111/49 Pulse Ox 99 - Reevaluation(s) Reevaluation #1: 09/16/19 16:28 Pt with Hb 6.5. Type and crossed for 2 units with plan to transfuse. Discussed with ZHEN Starr with plan for admit. Procedures - EKG Initial Date: 09/16/19 Time: 15:23 EKG: No Acute Changes (from 07-27-19) Medical Decision Making - Lab Data Result diagrams: 09/16/19 15:26 09/16/19 15:26 Critical Care Time Critical Care Time: Yes (blood transfusion) Total Critical Care Time: 45 Critical Care Time: 45 min blood transfuison. Disposition Disposition: Admit Clinical Impression: Symptomatic anemia Disposition: Still a Patient at [facility] Decision to Admit: Admit from ER Decision to Admit Date: 09/16/19 Decision to Admit Time: 16:30 Accepting Physician: Dr. Fitzgerald Time Discussed w/Accepting Physician: 16:30 (ZHEN Harris) Condition: (3) Guarded Forms: Patient Portal Access Time of Disposition: 16:30 Quality - Quality Measures Quality Measures: N/A - Blood Pressure Screening Does Patient Have Any of the Following: No Blood Pressure Classification: Normal BP Reading Systolic Measurement: 111 Diastolic Measurement: 49 Screening for High Blood Pressure: Patient Exclusion, Hx of HTN [G9744]
[2019-09-16 15:40] LABS: ABSOLUTE NEUTROPHIL COUNT 2.33; HEMATOCRIT 21.7 % (35.0-47.0); MEAN CELL VOLUME 80.1 fl (81-97); MEAN PLATELET VOLUME 8.5 fl (7.4-10.4); PLATELET COUNT 113 K/uL (130-400); RED BLOOD COUNT 2.71 M/uL (3.80-5.40); RED CELL DISTRIBUTION WIDTH 16.6 % (11.5-14.5); WHITE BLOOD COUNT W/O DIFF 3.7 K/uL (4.2-12.2)
[2019-09-16 15:47] LABS: MEAN CORPUSCULAR HEMOGLOBIN 23.9 pg (27-33)
[2019-09-16 15:48] LABS: HEMOGLOBIN 6.5 gm/dl (11.6-16.0)
[2019-09-16 15:50] LABS: BLOOD UREA NITROGEN 8 mg/dL (8-23); CREATININE 0.8 mg/dL (0.5-0.9); EST GLOMERULAR FILTRATION RATE > 60 mL/min
[2019-09-16 15:51] LABS: TOTAL PROTEIN 6.9 g/dL (6.6-8.7)
[2019-09-16 15:53] LABS: GLUCOSE,RANDOM 109 mg/dL (74-109)
[2019-09-16 15:55] LABS: ALT/SGPT 11 U/L (<33); AST/SGOT 29 U/L (10.0-35.0)
[2019-09-16 15:56] LABS: ALB/GLOB RATIO 0.8 (1.1-1.8); ALBUMIN 3.1 g/dL (4.0-5.0); ALKALINE PHOSPHATASE 142 U/L (35-104)
[2019-09-16 16:26] LABS: HYPOCHROMIA 2+
--- NOTE | 2019-09-16 16:41 | RADIOLOGY REPORT ---
EXAMINATION: Single View Chest EXAM DATE: 09/16/2019 4:26 PM TECHNIQUE: Single view chest INDICATION: DEANNA COMPARISON: 04/01/2019 ENCOUNTER: Not applicable FINDINGS: The cardiac silhouette appears mildly enlarged. There is blunting of the left costophrenic angle with a hazy left basilar opacity. There are patchy opacities in the left midlung and bilateral lung bases . No pneumothorax. IMPRESSION: 1. Left pleural effusion. 2. Patchy bibasilar and left midlung opacities may be due to edema, atelectasis or pneumonia. Dictated by: Colt Chandler on 09/16/2019 4:38 PM. .
[2019-09-16 17:14] LABS: ABO GROUP O; ANTIBODY SCREEN NEGATIVE (NEGATIVE); RH TYPE POSITIVE
[2019-09-16 17:15] LABS: IMMED. SPIN CROSSMATCH COMPATIBLE
[2019-09-16] MEDS ORDERED: ACETAMINOPHEN 325 MG TAB PO PRN (17:33)
--- NOTE | 2019-09-16 17:33 | History & Physical ---
History of Present Illness - Date of Service Date of Service for History & Physical: 09/16/19 - History of Present Illness Admitting Diagnosis: Symptomatic Anemia. Shortness of breath History of Present Illness: 68 year old female patient presented to ED via EMS with complaints of SOB for several days. Patient also reports noting swelling of her legs for a couple weeks as well. Patient reports an intermittent non-productive cough as well. Denies fever, chills, chest pain, dizziness, or syncope. Patient has an extensive history of COPD and asthma, but states this SOB feels different. Reports having to stop within the home when just ambulating to go to the bathroom. Patient has recently had a work-up from GI for anemia, which included negative upper and lower scopes. She is also scheduled for a liver biopsy with GI as well. Patient reports having several blood transfusions during hospitalizations over the past 2 months with no source of the anemia identified. Patient also has a broken left humerus, for which she is following with Dr. Sellers. Patient's past medical history includes HTN, Asthma, and COPD. PCP: Ro Torres ED Course: d-dimer 4.87 Trop <0.01 BNP 418 CXR: left sided opacities, edema vs pneumonia 2U PRBC 09/16/19: Patient A&O x 4, mild conversational dyspnea noted. Edema of bilateral legs as well. Receiving 2U PRBC. Travel Screening - Travel/Exposure Within Last 30 Days Have you traveled within the last 30 days?: No - Travel/Exposure Within Last Year Have you traveled outside the [place] in the last year?: No - Additonal Travel Details Have you been exposed to anyone with a communicable illness?: No - Travel Symptoms Symptom Screening: None Review of Systems Reviewed: No additional complaints except as noted below Constitutional: Reports: Weakness. Denies: Chills, Fever Eyes: Denies: Eye discharge ENT: Denies: Congestion, Ear pain Respiratory: Reports: Cough, Dyspnea. Denies: Stridor, Wheezes Cardiovascular: Reports: Dyspnea on exertion, Edema, Orthopnea. Denies: Arrhythmia, Chest pain, Palpitations, Syncope Endocrine: Denies: Fatigue, Polyuria Gastrointestinal: Denies: Abdominal pain, Diarrhea, Nausea, Vomiting Musculoskeletal: Denies: Arthralgia Skin: Denies: Bruising, Rash Neurological: Denies: Headache, Seizure, Tremors Psychiatric: Denies: Anxiety, Homicidal thoughts Hematological/Lymphatic: Reports: As per HPI, Anemia Past Medical History - SOCIAL HISTORY Smoking Status: Former smoker - RESPIRATORY Hx Respiratory Disorders: Yes Hx Asthma: Yes Hx Bronchitis: Yes Hx COPD: Yes Hx Dyspnea: Yes Hx Pneumonia: Yes Hx Pulmonary Embolism: No Hx Sleep Apnea: Yes Hx Tuberculosis: No - CARDIOVASCULAR Hx Cardio Disorders: No Hx Hypertension: Yes - NEURO Hx Neuro Disorders: Yes Hx Headaches: Yes - GI Hx GI Disorders: Yes Hx Crohn's Disease: Yes Hx GI Bleed: Yes Hx Rectal Bleeding: Yes Hx Ulcer: Yes - Hx Genitourinary Disorders: No - ENDOCRINE Hx Endocrine Disorders: Yes Hx Diabetes: Yes (takes po meds) Hx Thyroid Disease: No - MUSCULOSKELETAL Hx Musculoskeletal Disorders: Yes Hx Arthritis: Yes Hx Fibromyalgia: Yes Hx Musculoskeletal Disease: Yes Comment:: knees and hips bad - PSYCH Hx Psych Problems: Yes Hx Anxiety: Yes Hx Depression: Yes - HEMATOLOGY/ONCOLOGY Hx Hematology/Oncology Disorders: No Family Medical History Any Significant Family History?: Yes Hx Cancer: Mother, Brother/Sister, Grandparents Hx Heart Disease: Father Hx Resp Disorders: Brother/Sister, Grandparents H&P Meds/Allergies - Allergies Allergies: Allergies Allergy/AdvReac Type Severity Reaction Status Date / Time infliximab [From REMICADE] Allergy Unknown ANAPHYLAXIS Verified 07/27/19 19:37 meperidine Allergy Unknown ANAPHYLAXIS Verified 07/27/19 19:37 Penicillins [PENICILLINS] Allergy Unknown ANAPHYLAXIS Verified 07/27/19 19:37 prochlorperazine Allergy Unknown loss of Verified 07/27/19 19:37 muscle control - Home Medications Home Medications Medication Instructions Recorded Confirmed Last Taken Ferrous Sulfate 325 mg PO DAILY 09/16/19 09/16/19 09/15/19 08:00 Pantoprazole Sodium [Protonix] 20 mg PO BID 09/16/19 09/16/19 09/16/19 08:00 Physical Exam - Vital Signs Vital Signs: Vital Signs - Last 24 Hrs Temp Pulse Pulse Resp BP BP Pulse Ox 09/16/19 17:09 98.5 F 89 20 130/67 100 09/16/19 17:07 89 20 130/67 100 09/16/19 14:49 97.9 F 86 30 H 111/49 99 - General General Appearance: Alert, Oriented x3, Cooperative, No acute distress Limitations: No limitations - Head Head exam: Atraumatic, Normal inspection - Eye Eye exam: Normal appearance, PERRL, EOMI - ENT ENT exam: Mucous membranes moist Ear exam: Normal external inspection Nasal Exam: Normal inspection - Neck Neck exam: Normal inspection. negative: Lymphadenopathy, Tenderness - Respiratory Respiratory exam: Wheezes. negative: Rhonchi - Cardiovascular Cardiovascular Exam: Regular rate, Normal rhythm, Systolic murmur Peripheral Pulses: 2+: Radial (R), Radial (L) - GI/Abdominal GI/Abdominal exam: Soft. negative: Tenderness - Rectal Rectal exam: Deferred - exam: Deferred - Extremities Extremities exam: Pedal edema (pt with skin changes typical of venous insuf, 2 + pitting edeam to hips bilateral. No open sores), Tenderness (left shoulder in sling due to current humerus fx). negative: Calf tenderness - Back Back exam: Reports: Normal inspection - Neurological Neurological exam: Alert, Oriented X3. negative: Motor sensory deficit - Psychiatric Psychiatric exam: Normal affect, Normal mood. negative: Anxious, Depressed - Skin Skin exam: Normal color Results - Labs Result Diagrams: 09/16/19 15:26 09/16/19 15:26 Labs Last 24 Hours: Laboratory Results - last 24 hr 09/16/19 09/16/19 09/16/19 15:26 15:26 15:26 WBC 3.7 L RBC 2.71 L Hgb 6.5 L* Hct 21.7 L MCV 80.1 L MCH 23.9 L MCHC 30.0 L RDW 16.6 H Plt Count 113 L MPV 8.5 Neutrophils % 63.0 Band Neutrophils % 0.0 Eosinophils % Not Reportable Basophils % Not Reportable Absolute Neutrophils 2.33 Lymphocytes 12.0 L Monocytes 17.0 H Basophils 0.0 Hypochromasia 2+ Eosinophil Count 8.0 H D-Dimer 4.37 H Sodium 126 L Potassium 4.1 Chloride 92 L Carbon Dioxide 23.0 Anion Gap 11.0 BUN 8 Creatinine 0.8 Estimated GFR > 60 Random Glucose 109 Calcium 8.4 L Total Bilirubin 1.40 H AST 29 ALT 11 Alkaline Phosphatase 142 H Troponin T < 0.010 NT-Pro-B Natriuret Pep 418.00 H Total Protein 6.9 Albumin 3.1 L Globulin 3.8 Albumin/Globulin Ratio 0.8 L ABO Group Rh Factor Antibody Screen Crossmatch 09/16/19 15:53 WBC RBC Hgb Hct MCV MCH MCHC RDW Plt Count MPV Neutrophils % Band Neutrophils % Eosinophils % Basophils % Absolute Neutrophils Lymphocytes Monocytes Basophils Hypochromasia Eosinophil Count D-Dimer Sodium Potassium Chloride Carbon Dioxide Anion Gap BUN Creatinine Estimated GFR Random Glucose Calcium Total Bilirubin AST ALT Alkaline Phosphatase Troponin T NT-Pro-B Natriuret Pep Total Protein Albumin Globulin Albumin/Globulin Ratio ABO Group O Rh Factor Positive Antibody Screen Negative Crossmatch Yes - Imaging and Cardiology Chest x-ray Status: Report reviewed VTE H&P Assessment - Risk for VTE Risk for VTE: Yes Risk Level: Moderate Risk Assessment Date: 09/16/19 Risk Assessment Time: 17:00 VTE Orders Placed or Will Be Placed: Yes AMI H&P Plan - EKG Initial Date: 09/16/19 Time: 15:23 EKG: No Acute Changes (from 07-27-19) Plan - Detailed Diagnosis and Plan (1) Symptomatic anemia Current Visit: Yes Status: Acute Base Code: D64.9 - ANEMIA, UNSPECIFIED Comment: 09/16/19: - Hgb 6.5 - Transfuse 2U PRBC - Supplemental oxygen to keep pulse ox >92% - Recent work-up by GI with colonoscopy and EGD negative for source of bleeding - Scheduled for liver biposy to evaluate for cirrhosis - Consider Hem/onc outpatient for continued anemia (2) Shortness of breath Current Visit: Yes Status: Acute Base Code: R06.02 - SHORTNESS OF BREATH Comment: 09/16/19: - Increasing dyspnea with exertion - Troponin neg - D-dimer 4.37, CTA chest pending - BNP 418 - Lasix 20mg BID started (3) DVT prophylaxis Current Visit: No Status: Acute Base Code: [id number] - Comment: 09/16/19: - Moderate risk due to decreased mobility and hospitalization - Lovenox 40mg dailyanges (4) Full code status Current Visit: No Status: Chronic Base Code: Z78.9 - OTHER SPECIFIED HEALTH STATUS Comment: 09/16/19: -Pt has full code status this admission
[2019-09-16 19:19] LABS: IMMED. SPIN CROSSMATCH COMPATIBLE
[2019-09-16] MEDS ORDERED: IPRATROPIUM/ALBUTEROL (0.5MG/3MG) NEB INH PRN (19:23)
[2019-09-16] MEDS: PANTOPRAZOLE SODIUM 40 MG TABLET PO SCH (22:13)
[2019-09-16] MEDS: MONTELUKAST SODIUM 10MG TABLET PO SCH (22:13)
[2019-09-16] MEDS: TRAMADOL HCL 50 MG TABLET PO PRN (22:14)
[2019-09-16] MEDS: FUROSEMIDE IV 20MG/2ML VIAL IVP PRN (22:43)
--- NOTE | 2019-09-16 23:01 | CT ANGIOGRAM REPORT ---
EXAMINATION: CT Angiography of the Thorax EXAM DATE: 09/16/2019 10:51 PM TECHNIQUE: Standard protocol CT angiogram images were obtained through the chest following the admini stration of intravenous contrast. Coronal and sagittal MIP 3-D reformations were performed. IV Contrast: The amount and type of contrast are recorded in the medical record. INDICATION: Shortness of breath elevated d-dimer. COMPARISON: 04/04/2019 ENCOUNTER: Not applicable FINDINGS: Pulmonary Artery: Limited evaluation of segmental and subsegmental pulmonary arteries due to timing o f contrast bolus and limited opacification of the pulmonary arteries. No central filling defects are seen. Pulmonary emboli in segmental and subsegmental branches cannot be excluded. Aorta: No thoracic aortic aneurysm or dissection is present. Right Heart Strain: None. Heart : There is no pericardial effusion. Maki and Mediastinum: No lymphadenopathy. Lung Parenchyma: No consolidation. No suspicious pulmonary nodules. Central Airways: Normal. Pleural Effusion: Small left pleural effusion. Upper Abdomen: Moderate volume of ascites in the visualized upper abdomen. Nodular contour of the li robi. Numerous tiny hypodensities are present in the liver. Musculoskeletal and Chest Wall: Unremarkable. IMPRESSION: No central pulmonary emboli. Due to phase of contrast bolus, inadequate contrast opacification of per ipheral arteries. Small left pleural effusion. Moderate volume of ascites. Cirrhotic appearance of the liver and numerous tiny hypodensities present throughout. Dictated by: Selena Arrington MD on 09/16/2019 10:52 PM. .
[2019-09-17] MEDS: FUROSEMIDE IV 20MG/2ML VIAL IVP PRN (03:29)
[2019-09-17] MEDS: ALBUTEROL HFA 8 GM INHALER INH PRN ×2 (05:58→22:56)
[2019-09-17 07:54] LABS: ABSOLUTE NEUTROPHIL COUNT 2.96; BASO % 0.5 % (0-6); EOS % 6.3 % (0-6); GRAN % 69.5 % (47-80); HEMATOCRIT 25.9 % (35.0-47.0); HEMOGLOBIN 7.8 gm/dl (11.6-16.0); LYMPH % 8.7 % (16-45); MEAN CELL VOLUME 79.9 fl (81-97); MEAN CORPUSCULAR HGB CONC 30.1 g/dl (32-36); MEAN PLATELET VOLUME 8.6 fl (7.4-10.4); PLATELET COUNT 110 K/uL (130-400); RED BLOOD COUNT 3.24 M/uL (3.80-5.40); WHITE BLOOD COUNT W/O DIFF 4.3 K/uL (4.2-12.2)
[2019-09-17 08:10] LABS: BLOOD UREA NITROGEN 9 mg/dL (8-23); CREATININE 0.8 mg/dL (0.5-0.9); EST GLOMERULAR FILTRATION RATE > 60 mL/min; GLUCOSE,RANDOM 107 mg/dL (74-109)
[2019-09-17] MEDS: IBUPROFEN 400 MG TABLET PO PRN (09:24)
[2019-09-17] MEDS: BREO (FLUTICASONE/VILANTEROL) 200MCG/25MCG INHALER INH SCH (09:54)
[2019-09-17] MEDS: LISINOPRIL 20 MG TABLET PO SCH (10:20)
[2019-09-17] MEDS: PANTOPRAZOLE SODIUM 40 MG TABLET PO SCH ×2 (10:21→22:32)
[2019-09-17] MEDS: AMLODIPINE BESYLATE 5MG TAB PO SCH (10:21)
[2019-09-17] MEDS: FUROSEMIDE 20 MG TABLET PO SCH ×2 (10:22→16:34)
[2019-09-17] MEDS: HYDROCHLOROTHIAZIDE 12.5 MG CAPSULE PO SCH (10:23)
[2019-09-17] MEDS: ENOXAPARIN 40 MG/0.4 ML SYR SQ SCH (10:25)
[2019-09-17] MEDS ORDERED: IRON SUCROSE COMPLEX 500 MG in 0.9 % SODIUM CHLORIDE 250ML 250 ML IVPB ONE (11:00)
[2019-09-17] MEDS: TRAMADOL HCL 50 MG TABLET PO PRN ×2 (11:45→22:55)
[2019-09-17] MEDS ORDERED: MORPHINE SULFATE 5 MG/ML VIAL IVP PRN (17:40)
[2019-09-17] MEDS: ONDANSETRON 4 MG ODT TABLET SL PRN (21:41)
[2019-09-17] MEDS: MONTELUKAST SODIUM 10MG TABLET PO SCH (22:32)
[2019-09-18] MEDS: HYDROXYZINE PAMOATE 25 MG CAPSULE PO PRN (00:28)
[2019-09-18] MEDS: ALBUTEROL HFA 8 GM INHALER INH PRN ×2 (06:18→13:00)
[2019-09-18 06:40] LABS: ABSOLUTE NEUTROPHIL COUNT 2.81; HEMATOCRIT 25.1 % (35.0-47.0); HEMOGLOBIN 7.6 gm/dl (11.6-16.0); MEAN CELL VOLUME 80.4 fl (81-97); MEAN CORPUSCULAR HGB CONC 30.3 g/dl (32-36); MEAN PLATELET VOLUME 8.4 fl (7.4-10.4); PLATELET COUNT 91 K/uL (130-400); RED BLOOD COUNT 3.12 M/uL (3.80-5.40); RED CELL DISTRIBUTION WIDTH 16.6 % (11.5-14.5); WHITE BLOOD COUNT W/O DIFF 4.2 K/uL (4.2-12.2)
[2019-09-18] MEDS: IBUPROFEN 400 MG TABLET PO PRN (06:40)
[2019-09-18 06:45] LABS: MEAN CORPUSCULAR HEMOGLOBIN 24.3 pg (27-33)
[2019-09-18 06:55] LABS: ALB/GLOB RATIO 0.8 (1.1-1.8); ALBUMIN 2.9 g/dL (4.0-5.0); ALKALINE PHOSPHATASE 135 U/L (35-104); ALT/SGPT 11 U/L (<33); AST/SGOT 29 U/L (10.0-35.0); BLOOD UREA NITROGEN 8 mg/dL (8-23); CREATININE 0.8 mg/dL (0.5-0.9); EST GLOMERULAR FILTRATION RATE > 60 mL/min; GLUCOSE,RANDOM 109 mg/dL (74-109); TOTAL PROTEIN 6.7 g/dL (6.6-8.7)
[2019-09-18 07:02] LABS: HYPOCHROMIA 1+; PLATELET ESTIMATE DECREASED (NORMAL)
[2019-09-18] MEDS: FUROSEMIDE IV 40MG/4ML VIAL IVP SCH (09:52)
[2019-09-18] MEDS: AMLODIPINE BESYLATE 5MG TAB PO SCH (09:52)
[2019-09-18] MEDS: ENOXAPARIN 40 MG/0.4 ML SYR SQ SCH (09:52)
[2019-09-18] MEDS: LISINOPRIL 20 MG TABLET PO SCH (09:52)
[2019-09-18] MEDS: PANTOPRAZOLE SODIUM 40 MG TABLET PO SCH ×2 (09:52→21:06)
[2019-09-18] MEDS: POTASSIUM CHLORIDE 10 MEQ TAB PO SCH (09:52)
[2019-09-18] MEDS: HYDROCHLOROTHIAZIDE 12.5 MG CAPSULE PO SCH (09:52)
[2019-09-18] MEDS: BREO (FLUTICASONE/VILANTEROL) 200MCG/25MCG INHALER INH SCH (10:05)
--- NOTE | 2019-09-18 10:09 | Physician Progress Note ---
Subjective - Date Date of Physician Progress Note: 09/17/19 - Subjective Subjective Comment: 09/17/19 1730 Vitals: T 98.0, HR 94, RR 20, SpO2 98% on RA, BP 146/87 Pt was observed sitting up at the bedside with right leg dangling in a dependent position. She reported that she was getting alot of edema in her legs, all the way up to her hips bilaterally. She had mild conversational dyspnea. Reported feeling nauseated and unable to eat alot of food at one time d/t feeling so fu ll. When asked about when her liver biopsy is scheduled, she reported that it hasn't been scheduled yet d/t her constant coughing. She c/o pain in bilateral legs and hips d/t the edema, normally takes Ultram 50mg PO BID at home. Location: Lower extremity Severity scale (1-10): 7 Quality: Constant Improves with: Immobilization, Medication Worsens with: Movement Objective - Vital Signs Vital Signs: Vital Signs - Last 24 Hrs Temp Pulse Pulse Resp BP Pulse Ox 09/18/19 08:52 98.2 F 101 H 19 131/53 97 09/18/19 08:33 22 09/18/19 06:18 93 H 22 93 L 09/18/19 05:00 98.2 F 90 18 125/53 96 09/18/19 01:00 98.2 F 88 18 122/46 95 09/17/19 22:56 90 24 94 L 09/17/19 21:45 98.1 F 92 H 18 151/89 95 09/17/19 16:00 97.9 F 92 H 18 109/52 97 09/17/19 11:20 98 F 94 H 20 146/87 98 - General General Appearance: Alert, Oriented x3, Cooperative, No acute distress Limitations: No limitations - Head Head exam: Atraumatic, Normal inspection - Eye Eye exam: Normal appearance, PERRL, EOMI - ENT ENT exam: Mucous membranes moist Ear exam: Normal external inspection Nasal Exam: Normal inspection - Neck Neck exam: Normal inspection. negative: Lymphadenopathy, Tenderness - Respiratory Respiratory exam: Wheezes. negative: Rhonchi - Cardiovascular Cardiovascular Exam: Regular rate, Normal rhythm, Systolic murmur Peripheral Pulses: 2+: Radial (R), Radial (L) - GI/Abdominal GI/Abdominal exam: Soft, Tenderness - Rectal Rectal exam: Deferred - exam: Deferred - Extremities Extremities exam: Pedal edema (pt with skin changes typical of venous insuf, 2 + pitting edeam to hips bilateral. No open sores), Tenderness (left shoulder in sling due to current humerus fx). negative: Calf tenderness - Back Back exam: Reports: Normal inspection - Neurological Neurological exam: Alert, Oriented X3. negative: Motor sensory deficit - Psychiatric Psychiatric exam: Normal affect, Normal mood. negative: Anxious, Depressed - Skin Skin exam: Normal color Assessment and Plan - Assessment and Plan (1) Shortness of breath Current Visit: Yes Status: Acute Base Code: R06.02 - SHORTNESS OF BREATH Comment: 09/17/19: - Increasing dyspnea with exertion - Troponin neg - D-dimer 4.37, CTA chest: Negative for PE - BNP 418 - Lasix changed to 40mg IV starting in the a.m. on 09/18/19 - Continue Hctz 12.5mg - CMP ordered for the a.m. (2) Edema of both legs Current Visit: Yes Status: Acute Base Code: R60.0 - LOCALIZED EDEMA Comment: 09/17/19 - Possibily r/t potential liver dx as pt is awaiting to be scheduled for a liver biopsy - 2+ pitting edema to BLE from foot to hip - Will increase diuresis to 40mg IV lasix tomorrow a.m. and re-evaluate - Added KCl 10meq - Encouraged to keep legs elevated (3) Symptomatic anemia Current Visit: Yes Status: Acute Base Code: D64.9 - ANEMIA, UNSPECIFIED Comment: 09/17/19: - Hgb 6.5 --> 7.8 - Had 2 units of PRBCs and an Iron Infusion - Check CBC in the a.m. - Supplemental oxygen to keep pulse ox >92% - Recent work-up by GI with colonoscopy and EGD negative for source of bleeding - Scheduled for liver biposy to evaluate for cirrhosis - Consider Hem/onc outpatient for continued anemia (4) DVT prophylaxis Current Visit: No Status: Acute Base Code: [id number] - Comment: 09/17/19: - Moderate risk due to decreased mobility and hospitalization - Lovenox 40mg daily, monitoring platelets (5) Full code status Current Visit: No Status: Chronic Base Code: Z78.9 - OTHER SPECIFIED HEALTH STATUS Comment: 09/17/19: -Pt has full code status this admission Results - Labs Result Diagrams: 09/18/19 06:00 09/18/19 06:00 Labs Last 24 Hours: Laboratory Results - last 24 hr 09/18/19 09/18/19 06:00 06:00 WBC 4.2 RBC 3.12 L Hgb 7.6 L Hct 25.1 L MCV 80.4 L MCH 24.3 L MCHC 30.3 L RDW 16.6 H Plt Count 91 L MPV 8.4 Neutrophils % 65.0 Eosinophils % Not Reportable Basophils % Not Reportable Absolute Neutrophils 2.81 Lymphocytes 8.0 L Monocytes 18.0 H Platelet Estimate Decreased Hypochromasia 1+ Eosinophil Count 9.0 H Sodium 131 L Potassium 4.5 Chloride 95 L Carbon Dioxide 27.0 Anion Gap 9.0 BUN 8 Creatinine 0.8 Estimated GFR > 60 Random Glucose 109 Calcium 8.4 L Total Bilirubin 2.10 H AST 29 ALT 11 Alkaline Phosphatase 135 H Total Protein 6.7 Albumin 2.9 L Globulin 3.8 Albumin/Globulin Ratio 0.8 L DVT/PE Assessment - Risk for VTE Risk for VTE: No Risk Level: Moderate Risk Assessment Date: 09/16/19 Risk Assessment Time: 17:00 VTE Orders Placed or Will Be Placed: Yes - Active Medicaitons Current Medications: Current Medications Acetaminophen (Tylenol 325mg) 650 mg PO Q4H PRN PRN Reason: PAIN - MILD(1-4)/FEVER Albuterol Sulfate (Ventolin Hfa) 2 puff INH Q4H PRN PRN Reason: WHEEZING Last Admin: 09/18/19 06:18 Dose: 2 puff Documented by: Albuterol/Ipratropium (Duoneb) 3 ml INH Q4HR PRN PRN Reason: WHEEZING Last Admin: 09/16/19 21:46 Dose: 3 ml Documented by: Amlodipine Besylate (Norvasc) 10 mg PO DAILY [facility] Last Admin: 09/18/19 09:52 Dose: 10 mg Documented by: Enoxaparin Sodium (Lovenox) 40 mg SQ DAILY [facility] Last Admin: 09/18/19 09:52 Dose: 40 mg Documented by: Furosemide (Lasix Iv) 40 mg IVP DAILY [facility] Last Admin: 09/18/19 09:52 Dose: 40 mg Documented by: Hydrochlorothiazide (Hctz 12.5mg) 12.5 mg PO DAILY [facility] Last Admin: 09/18/19 09:52 Dose: 12.5 mg Documented by: Hydroxyzine Pamoate (Vistaril) 25 mg PO TID PRN PRN Reason: ANXIETY Last Admin: 09/18/19 00:28 Dose: 25 mg Documented by: Ibuprofen (Motrin 400mg) 800 mg PO Q8H PRN PRN Reason: PAIN - MILD TO MODERATE (1-7) Last Admin: 09/18/19 06:40 Dose: 800 mg Documented by: Lisinopril (Zestril) 40 mg PO DAILY [facility] Last Admin: 09/18/19 09:52 Dose: 40 mg Documented by: Montelukast Sodium (Singulair) 10 mg PO QHS [facility] Last Admin: 09/17/19 22:32 Dose: 10 mg Documented by: Morphine Sulfate (Morphine Sulfate) 1 mg IVP Q4H PRN PRN Reason: PAIN - SEVERE (8-10) Stop: 09/24/19 17:41 Last Admin: 09/18/19 00:25 Dose: 1 mg Documented by: Ondansetron HCl (Zofran Odt) 4 mg SL Q8H PRN PRN Reason: NAUSEA/VOMITING Last Admin: 09/17/19 21:41 Dose: 4 mg Documented by: Pantoprazole Sodium (Protonix) 40 mg PO BID [facility] Last Admin: 09/18/19 09:52 Dose: 40 mg Documented by: Potassium Chloride (Klor-Con) 10 meq PO DAILY [facility] Last Admin: 09/18/19 09:52 Dose: 10 meq Documented by: Tramadol HCl (Ultram) 50 mg PO TID PRN PRN Reason: PAIN - MOD TO SEVERE (5-10) Last Admin: 09/17/19 22:55 Dose: 50 mg Documented by: AMI Plan - Labs Result Diagrams: 09/18/19 06:00 09/18/19 06:00
--- NOTE | 2019-09-18 12:57 | Physician Progress Note ---
Subjective - Date Date of Physician Progress Note: 09/18/19 - Subjective Subjective Comment: 09/17/19 1730 Vitals: T 98.0, HR 94, RR 20, SpO2 98% on RA, BP 146/87 Pt was observed sitting up at the bedside with right leg dangling in a dependent position. She reported that she was getting alot of edema in her legs, all the way up to her hips bilaterally. She had mild conversational dyspnea. Reported feeling nauseated and unable to eat alot of food at one time d/t feeling so fu ll. When asked about when her liver biopsy is scheduled, she reported that it hasn't been scheduled yet d/t her constant coughing. She c/o pain in bilateral legs and hips d/t the edema, normally takes Ultram 50mg PO BID at home. 09/18/19 1230 Vitals: T98.2, HR 101, BP 131/53, RR 19, SP02 97% RA Sitting up at the bedside. Reported that the edema had not decreased much. Still feels very "full" of fluid. Had 2 units of PRBCS and an Iron infusion between and Friday and Hgb only 7.6. Discussed possibility of seeing a Heme/Onc doctor on an outpatient basis. Pt agreeable as she would like to get her shoulder fixed and does not think that Ortho will do it with her hgb that low. Discussed possibility of paracentesis, pt agreed that this would be helpful. Location: Lower extremity Severity scale (1-10): 8 Improves with: Medication Objective - Vital Signs Vital Signs: Vital Signs - Last 24 Hrs Temp Pulse Pulse Resp BP Pulse Ox 09/18/19 08:52 98.2 F 101 H 19 131/53 97 09/18/19 08:33 22 09/18/19 06:18 93 H 22 93 L 09/18/19 05:00 98.2 F 90 18 125/53 96 09/18/19 01:00 98.2 F 88 18 122/46 95 09/17/19 22:56 90 24 94 L 09/17/19 21:45 98.1 F 92 H 18 151/89 95 09/17/19 16:00 97.9 F 92 H 18 109/52 97 - General General Appearance: Alert, Oriented x3, Cooperative, No acute distress Limitations: No limitations - Head Head exam: Atraumatic, Normal inspection - Eye Eye exam: Normal appearance, PERRL, EOMI - ENT ENT exam: Mucous membranes moist Ear exam: Normal external inspection Nasal Exam: Normal inspection - Neck Neck exam: Normal inspection. negative: Lymphadenopathy, Tenderness - Respiratory Respiratory exam: Rhonchi (RUL), Wheezes - Cardiovascular Cardiovascular Exam: Regular rate, Normal rhythm, Systolic murmur Peripheral Pulses: 2+: Radial (R), Radial (L) - GI/Abdominal GI/Abdominal exam: Soft, Tenderness - Rectal Rectal exam: Deferred - exam: Deferred - Extremities Extremities exam: Pedal edema (pt with skin changes typical of venous insuf, 2 + pitting edeam to hips bilateral. No open sores), Tenderness (left shoulder in sling due to current humerus fx). negative: Calf tenderness - Back Back exam: Reports: Normal inspection - Neurological Neurological exam: Alert, Oriented X3. negative: Motor sensory deficit - Psychiatric Psychiatric exam: Normal affect, Normal mood. negative: Anxious, Depressed - Skin Skin exam: Normal color Assessment and Plan - Assessment and Plan (1) Shortness of breath Current Visit: Yes Status: Acute Base Code: R06.02 - SHORTNESS OF BREATH Comment: 09/18/19: - Increasing dyspnea with exertion, mild conversational dyspnea - Troponin neg - D-dimer 4.37, CTA chest: Negative for PE - BNP 418 - Lasix IV 40mg q. AM and 20mg @ 1400 - KCl added - Continue Hctz 12.5mg - CMP ordered for the a.m. to monitor kidney function (2) Ascites Current Visit: Yes Status: Acute Base Code: R18.8 - OTHER ASCITES Comment: 09/18/19 - Consider Interventional Radiology for a paracentesis (3) Edema of both legs Current Visit: Yes Status: Acute Base Code: R60.0 - LOCALIZED EDEMA Comment: 09/18/19 - Possibily r/t potential liver dx as pt is awaiting to be scheduled for a liver biopsy - 2+ pitting edema to BLE from foot to hip - Lasix increased to 40mg IV in the a.m and 20mg @ 1400 - Added KCl 10meq - Encouraged to keep legs elevated (4) Symptomatic anemia Current Visit: Yes Status: Acute Base Code: D64.9 - ANEMIA, UNSPECIFIED Comment: 09/18/19: - Hgb 6.5 --> 7.8 --> 7.6 - Had 2 units of PRBCs and an Iron Infusion - Check CBC in the a.m. - Supplemental oxygen to keep pulse ox >92% - Recent work-up by GI with colonoscopy and EGD negative for source of bleeding - Scheduled for liver biposy to evaluate for cirrhosis - Consider Hem/onc outpatient for continued anemia (5) DVT prophylaxis Current Visit: Yes Status: Acute Base Code: [id number] - Comment: 09/18/19: - Moderate risk due to decreased mobility and hospitalization - Lovenox 40mg daily, monitoring platelets (6) Full code status Current Visit: Yes Status: Chronic Base Code: Z78.9 - OTHER SPECIFIED HEALTH STATUS Comment: 09/18/19: -Pt has full code status this admission Results - Labs Result Diagrams: 09/18/19 06:00 09/18/19 06:00 Labs Last 24 Hours: Laboratory Results - last 24 hr 09/18/19 09/18/19 06:00 06:00 WBC 4.2 RBC 3.12 L Hgb 7.6 L Hct 25.1 L MCV 80.4 L MCH 24.3 L MCHC 30.3 L RDW 16.6 H Plt Count 91 L MPV 8.4 Neutrophils % 65.0 Eosinophils % Not Reportable Basophils % Not Reportable Absolute Neutrophils 2.81 Lymphocytes 8.0 L Monocytes 18.0 H Platelet Estimate Decreased Hypochromasia 1+ Eosinophil Count 9.0 H Sodium 131 L Potassium 4.5 Chloride 95 L Carbon Dioxide 27.0 Anion Gap 9.0 BUN 8 Creatinine 0.8 Estimated GFR > 60 Random Glucose 109 Calcium 8.4 L Total Bilirubin 2.10 H AST 29 ALT 11 Alkaline Phosphatase 135 H Total Protein 6.7 Albumin 2.9 L Globulin 3.8 Albumin/Globulin Ratio 0.8 L DVT/PE Assessment - Risk for VTE Risk for VTE: No Risk Level: Moderate Risk Assessment Date: 09/16/19 Risk Assessment Time: 17:00 VTE Orders Placed or Will Be Placed: Yes - Active Medicaitons Current Medications: Current Medications Acetaminophen (Tylenol 325mg) 650 mg PO Q4H PRN PRN Reason: PAIN - MILD(1-4)/FEVER Albuterol Sulfate (Ventolin Hfa) 2 puff INH Q4H PRN PRN Reason: WHEEZING Last Admin: 09/18/19 06:18 Dose: 2 puff Documented by: Albuterol/Ipratropium (Duoneb) 3 ml INH Q4HR PRN PRN Reason: WHEEZING Last Admin: 09/16/19 21:46 Dose: 3 ml Documented by: Amlodipine Besylate (Norvasc) 10 mg PO DAILY [facility] Last Admin: 09/18/19 09:52 Dose: 10 mg Documented by: Enoxaparin Sodium (Lovenox) 40 mg SQ DAILY [facility] Last Admin: 09/18/19 09:52 Dose: 40 mg Documented by: Furosemide (Lasix Iv) 40 mg IVP DAILY [facility] Last Admin: 09/18/19 09:52 Dose: 40 mg Documented by: Furosemide (Lasix Iv) 20 mg IVP DAILY [facility] Hydrochlorothiazide (Hctz 12.5mg) 12.5 mg PO DAILY [facility] Last Admin: 09/18/19 09:52 Dose: 12.5 mg Documented by: Hydroxyzine Pamoate (Vistaril) 25 mg PO TID PRN PRN Reason: ANXIETY Last Admin: 09/18/19 00:28 Dose: 25 mg Documented by: Ibuprofen (Motrin 400mg) 800 mg PO Q8H PRN PRN Reason: PAIN - MILD TO MODERATE (1-7) Last Admin: 09/18/19 06:40 Dose: 800 mg Documented by: Lisinopril (Zestril) 40 mg PO DAILY [facility] Last Admin: 09/18/19 09:52 Dose: 40 mg Documented by: Montelukast Sodium (Singulair) 10 mg PO QHS [facility] Last Admin: 09/17/19 22:32 Dose: 10 mg Documented by: Morphine Sulfate (Morphine Sulfate) 1 mg IVP Q4H PRN PRN Reason: PAIN - SEVERE (8-10) Stop: 09/24/19 17:41 Last Admin: 09/18/19 00:25 Dose: 1 mg Documented by: Ondansetron HCl (Zofran Odt) 4 mg SL Q8H PRN PRN Reason: NAUSEA/VOMITING Last Admin: 09/17/19 21:41 Dose: 4 mg Documented by: Pantoprazole Sodium (Protonix) 40 mg PO BID [facility] Last Admin: 09/18/19 09:52 Dose: 40 mg Documented by: Potassium Chloride (Klor-Con) 10 meq PO DAILY [facility] Last Admin: 09/18/19 09:52 Dose: 10 meq Documented by: Tramadol HCl (Ultram) 50 mg PO TID PRN PRN Reason: PAIN - MOD TO SEVERE (5-10) Last Admin: 09/17/19 22:55 Dose: 50 mg Documented by: CHAYA Plan - Labs Result Diagrams: 09/18/19 06:00 09/18/19 06:00
[2019-09-18] MEDS: FUROSEMIDE IV 20MG/2ML VIAL IVP SCH (14:26)
[2019-09-18] MEDS: TRAMADOL HCL 50 MG TABLET PO PRN (18:38)
[2019-09-18] MEDS: MONTELUKAST SODIUM 10MG TABLET PO SCH (21:06)
[2019-09-18] MEDS: ONDANSETRON 4 MG ODT TABLET SL PRN (21:41)
[2019-09-19] MEDS: HYDROXYZINE PAMOATE 25 MG CAPSULE PO PRN (02:47)
[2019-09-19] MEDS: IBUPROFEN 400 MG TABLET PO PRN (02:47)
[2019-09-19 06:47] LABS: HEMATOCRIT 25.1 % (35.0-47.0); HEMOGLOBIN 7.6 gm/dl (11.6-16.0); MEAN CORPUSCULAR HEMOGLOBIN 24.5 pg (27-33); MEAN CORPUSCULAR HGB CONC 30.3 g/dl (32-36); MEAN PLATELET VOLUME 8.8 fl (7.4-10.4); PLATELET COUNT 100 K/uL (130-400); RED CELL DISTRIBUTION WIDTH 17.1 % (11.5-14.5)
[2019-09-19 07:02] LABS: ALB/GLOB RATIO 0.7 (1.1-1.8); ALBUMIN 2.9 g/dL (4.0-5.0); ALKALINE PHOSPHATASE 134 U/L (35-104); ALT/SGPT 10 U/L (<33); AST/SGOT 31 U/L (10.0-35.0); BLOOD UREA NITROGEN 9 mg/dL (8-23); CREATININE 0.8 mg/dL (0.5-0.9); EST GLOMERULAR FILTRATION RATE > 60 mL/min; GLUCOSE,RANDOM 95 mg/dL (74-109); TOTAL PROTEIN 6.8 g/dL (6.6-8.7)
[2019-09-19 07:13] LABS: ANISOCYTOSIS 1+; HYPOCHROMIA 2+; PLATELET ESTIMATE DECREASED (NORMAL)
[2019-09-19] MEDS: TRAMADOL HCL 50 MG TABLET PO PRN ×2 (08:36→21:39)
[2019-09-19] MEDS: HYDROCHLOROTHIAZIDE 12.5 MG CAPSULE PO SCH (10:00)
[2019-09-19] MEDS: PANTOPRAZOLE SODIUM 40 MG TABLET PO SCH ×2 (10:00→21:40)
[2019-09-19] MEDS: AMLODIPINE BESYLATE 5MG TAB PO SCH (10:00)
[2019-09-19] MEDS: POTASSIUM CHLORIDE 10 MEQ TAB PO SCH (10:00)
[2019-09-19] MEDS: LISINOPRIL 20 MG TABLET PO SCH (10:01)
[2019-09-19] MEDS: FUROSEMIDE IV 40MG/4ML VIAL IVP SCH (10:01)
[2019-09-19] MEDS: ENOXAPARIN 40 MG/0.4 ML SYR SQ SCH (10:01)
[2019-09-19] MEDS: BREO (FLUTICASONE/VILANTEROL) 200MCG/25MCG INHALER INH SCH (10:50)
--- NOTE | 2019-09-19 12:02 | Physician Progress Note ---
Subjective - Date Date of Physician Progress Note: 09/19/19 - Subjective Subjective Comment: 09/17/19 1730 Vitals: T 98.0, HR 94, RR 20, SpO2 98% on RA, BP 146/87 Pt was observed sitting up at the bedside with right leg dangling in a dependent position. She reported that she was getting alot of edema in her legs, all the way up to her hips bilaterally. She had mild conversational dyspnea. Reported feeling nauseated and unable to eat alot of food at one time d/t feeling so fu ll. When asked about when her liver biopsy is scheduled, she reported that it hasn't been scheduled yet d/t her constant coughing. She c/o pain in bilateral legs and hips d/t the edema, normally takes Ultram 50mg PO BID at home. 09/18/19 1230 Vitals: T98.2, HR 101, BP 131/53, RR 19, SP02 97% RA Sitting up at the bedside. Reported that the edema had not decreased much. Still feels very "full" of fluid. Had 2 units of PRBCS and an Iron infusion between and Friday and Hgb only 7.6. Discussed possibility of seeing a Heme/Onc doctor on an outpatient basis. Pt agreeable as she would like to get her shoulder fixed and does not think that Ortho will do it with her hgb that low. Discussed possibility of paracentesis, pt agreed that this would be helpful. 09/19/19 1400 Lying in bed, resting. Easily arousable. Had a 2 lb weight loss overnight. States that she is able to sleep at night with the diuretic regimen that she got yesterday, she was not up all night urinating. Is concerned that she is getting cellulitis to BLE d/t increasing warmth and redness. Is prone to getting celluli tis. Pt to have an abdominal U/S tomorrow morning to evaluate ascites and if significant enough, she will be set up for paracentesis with IR. Location: Lower extremity Severity scale (1-10): 7 Improves with: Immobilization, Medication Objective - Vital Signs Vital Signs: Vital Signs - Last 24 Hrs Temp Pulse Pulse Resp BP Pulse Ox 09/19/19 08:28 18 09/19/19 07:30 98.7 F 88 18 140/59 97 09/19/19 06:30 98.6 F 90 18 121/36 97 09/19/19 01:00 98.8 F 101 H 20 145/71 96 09/18/19 20:05 98.1 F 91 H 18 117/44 94 L 09/18/19 17:00 98.1 F 89 16 128/55 97 09/18/19 13:01 91 H 18 93 L 09/18/19 13:00 98.1 F 88 18 136/47 95 - General General Appearance: Alert, Oriented x3, Cooperative, No acute distress Limitations: No limitations - Head Head exam: Atraumatic, Normal inspection - Eye Eye exam: Normal appearance, PERRL, EOMI - ENT ENT exam: Mucous membranes moist Ear exam: Normal external inspection Nasal Exam: Normal inspection - Neck Neck exam: Normal inspection. negative: Lymphadenopathy, Tenderness - Respiratory Respiratory exam: Rhonchi (RUL), Wheezes - Cardiovascular Cardiovascular Exam: Regular rate, Normal rhythm, Systolic murmur Peripheral Pulses: 2+: Radial (R), Radial (L) - GI/Abdominal GI/Abdominal exam: Soft, Tenderness - Rectal Rectal exam: Deferred - exam: Deferred - Extremities Extremities exam: Pedal edema (pt with skin changes typical of venous insuf, 2 + pitting edeam to hips bilateral. No open sores), Tenderness (left shoulder in sling due to current humerus fx). negative: Calf tenderness - Back Back exam: Reports: Normal inspection - Neurological Neurological exam: Alert, Oriented X3. negative: Motor sensory deficit - Psychiatric Psychiatric exam: Normal affect, Normal mood. negative: Anxious, Depressed - Skin Skin exam: Erythema (to BLE ), Normal color Assessment and Plan - Assessment and Plan (1) Shortness of breath Current Visit: Yes Status: Acute Base Code: R06.02 - SHORTNESS OF BREATH Comment: 09/19/19: - Increasing dyspnea with exertion, mild conversational dyspnea - Troponin neg - D-dimer 4.37, CTA chest: Negative for PE - BNP 418 - Lasix IV 40mg q. AM and 20mg @ 1400 - KCl added - Continue Hctz 12.5mg - CMP ordered for the a.m. to monitor kidney function - Echocardiogram ordered (2) Ascites Current Visit: Yes Status: Acute Base Code: R18.8 - OTHER ASCITES Comment: 09/19/19 - Abdominal U/S scheduled for Friday09/20/19 - If significant ascites, will have paracentesis with Interventional radiology (3) Edema of both legs Current Visit: Yes Status: Acute Base Code: R60.0 - LOCALIZED EDEMA Comment: 09/19/19 - Possibily r/t potential liver dx as pt is awaiting to be scheduled for a liver biopsy - 2+ pitting edema to BLE from foot to hip - Lasix increased to 40mg IV in the a.m and 20mg @ 1400 - Added KCl 10meq - Encouraged to keep legs elevated (4) Symptomatic anemia Current Visit: Yes Status: Acute Base Code: D64.9 - ANEMIA, UNSPECIFIED Comment: 09/19/19: - Hgb 6.5 --> 7.8 --> 7.6 - Had 2 units of PRBCs and an Iron Infusion - Check CBC in the a.m. - Supplemental oxygen to keep pulse ox >92% - Recent work-up by GI with colonoscopy and EGD negative for source of bleeding - Scheduled for liver biposy to evaluate for cirrhosis - Consider Hem/onc outpatient for continued anemia (5) DVT prophylaxis Current Visit: Yes Status: Acute Base Code: [id number] - Comment: 09/19/19: - Moderate risk due to decreased mobility and hospitalization - Lovenox 40mg daily, monitoring platelets (6) Full code status Current Visit: Yes Status: Chronic Base Code: Z78.9 - OTHER SPECIFIED HEALTH STATUS Comment: 09/19/19: -Pt has full code status this admission Results - Labs Result Diagrams: 09/19/19 06:15 09/19/19 06:15 Labs Last 24 Hours: Laboratory Results - last 24 hr 09/19/19 09/19/19 06:15 06:15 WBC 4.0 L RBC 3.10 L Hgb 7.6 L Hct 25.1 L MCV 81.0 MCH 24.5 L MCHC 30.3 L RDW 17.1 H Plt Count 100 L MPV 8.8 Neutrophils % 70.0 Band Neutrophils % 1.0 Eosinophils % Not Reportable Basophils % Not Reportable Absolute Neutrophils TNP Lymphocytes 12.0 L Monocytes 12.0 H Platelet Estimate Decreased Hypochromasia 2+ Anisocytosis 1+ Eosinophil Count 5.0 Sodium 130 L Potassium 4.4 Chloride 93 L Carbon Dioxide 27.0 Anion Gap 10.0 BUN 9 Creatinine 0.8 Estimated GFR > 60 Random Glucose 95 Calcium 8.3 L Total Bilirubin 1.60 H AST 31 ALT 10 Alkaline Phosphatase 134 H Total Protein 6.8 Albumin 2.9 L Globulin 3.9 Albumin/Globulin Ratio 0.7 L DVT/PE Assessment - Risk for VTE Risk for VTE: No Risk Level: Moderate Risk Assessment Date: 09/16/19 Risk Assessment Time: 17:00 VTE Orders Placed or Will Be Placed: Yes - Active Medicaitons Current Medications: Current Medications Acetaminophen (Tylenol 325mg) 650 mg PO Q4H PRN PRN Reason: PAIN - MILD(1-4)/FEVER Albuterol Sulfate (Ventolin Hfa) 2 puff INH Q4H PRN PRN Reason: WHEEZING Last Admin: 09/18/19 13:00 Dose: 2 puff Documented by: Albuterol/Ipratropium (Duoneb) 3 ml INH Q4HR PRN PRN Reason: WHEEZING Last Admin: 09/16/19 21:46 Dose: 3 ml Documented by: Amlodipine Besylate (Norvasc) 10 mg PO DAILY [facility] Last Admin: 09/19/19 10:00 Dose: 10 mg Documented by: Enoxaparin Sodium (Lovenox) 40 mg SQ DAILY [facility] Last Admin: 09/19/19 10:01 Dose: 40 mg Documented by: Furosemide (Lasix Iv) 40 mg IVP DAILY [facility] Last Admin: 09/19/19 10:01 Dose: 40 mg Documented by: Furosemide (Lasix Iv) 20 mg IVP 1400 MARGARITO Hydrochlorothiazide (Hctz 12.5mg) 12.5 mg PO DAILY [facility] Last Admin: 09/19/19 10:00 Dose: 12.5 mg Documented by: Hydroxyzine Pamoate (Vistaril) 25 mg PO TID PRN PRN Reason: ANXIETY Last Admin: 09/19/19 02:47 Dose: 25 mg Documented by: Ibuprofen (Motrin 400mg) 800 mg PO Q8H PRN PRN Reason: PAIN - MILD TO MODERATE (1-7) Last Admin: 09/19/19 02:47 Dose: 800 mg Documented by: Lisinopril (Zestril) 40 mg PO DAILY [facility] Last Admin: 09/19/19 10:01 Dose: 40 mg Documented by: Montelukast Sodium (Singulair) 10 mg PO QHS [facility] Last Admin: 09/18/19 21:06 Dose: 10 mg Documented by: Morphine Sulfate (Morphine Sulfate) 1 mg IVP Q4H PRN PRN Reason: PAIN - SEVERE (8-10) Stop: 09/24/19 17:41 Last Admin: 09/18/19 00:25 Dose: 1 mg Documented by: Ondansetron HCl (Zofran Odt) 4 mg SL Q8H PRN PRN Reason: NAUSEA/VOMITING Last Admin: 09/18/19 21:41 Dose: 4 mg Documented by: Pantoprazole Sodium (Protonix) 40 mg PO BID [facility] Last Admin: 09/19/19 10:00 Dose: 40 mg Documented by: Potassium Chloride (Klor-Con) 10 meq PO DAILY [facility] Last Admin: 09/19/19 10:00 Dose: 10 meq Documented by: Tramadol HCl (Ultram) 50 mg PO TID PRN PRN Reason: PAIN - MOD TO SEVERE (5-10) Last Admin: 09/19/19 08:36 Dose: 50 mg Documented by: CHAYA Plan - Labs Result Diagrams: 09/19/19 06:15 09/19/19 06:15
[2019-09-19] MEDS: FUROSEMIDE IV 20MG/2ML VIAL IVP SCH ×2 (12:11→14:15)
[2019-09-19] MEDS: TMP/SMZ 160MG/800MG TAB PO SCH (21:39)
[2019-09-19] MEDS: MONTELUKAST SODIUM 10MG TABLET PO SCH (21:40)
[2019-09-19] MEDS: ONDANSETRON 4 MG ODT TABLET SL PRN (23:22)
[2019-09-20] MEDS: HYDROXYZINE PAMOATE 25 MG CAPSULE PO PRN ×3 (02:11→23:01)
[2019-09-20] MEDS: IBUPROFEN 400 MG TABLET PO PRN (02:11)
[2019-09-20] MEDS: ALBUTEROL HFA 8 GM INHALER INH PRN ×2 (02:58→21:25)
[2019-09-20] MEDS: HYDROCHLOROTHIAZIDE 12.5 MG CAPSULE PO SCH (09:42)
[2019-09-20] MEDS: AMLODIPINE BESYLATE 5MG TAB PO SCH (09:42)
[2019-09-20] MEDS: TMP/SMZ 160MG/800MG TAB PO SCH ×2 (09:42→21:09)
[2019-09-20] MEDS: ENOXAPARIN 40 MG/0.4 ML SYR SQ SCH (09:42)
[2019-09-20] MEDS: PANTOPRAZOLE SODIUM 40 MG TABLET PO SCH ×2 (09:42→21:09)
[2019-09-20] MEDS: FUROSEMIDE IV 40MG/4ML VIAL IVP SCH (09:43)
[2019-09-20] MEDS: LISINOPRIL 20 MG TABLET PO SCH (09:43)
[2019-09-20] MEDS: POTASSIUM CHLORIDE 10 MEQ TAB PO SCH (09:43)
--- NOTE | 2019-09-20 10:25 | ULTRASOUND REPORT ---
EXAMINATION: Ultrasound Abdomen Limited EXAM DATE: 09/20/2019 10:03 AM TECHNIQUE: Ultrasound of the peritoneal cavity for ascites. INDICATION: ASCITES. COMPARISON: Correlation with 09/16/2019 CT chest FINDINGS: Large amount of free fluid visualized abdomen and pelvis. Nodular liver contour. IMPRESSION: Hepatic cirrhosis and large volume of visualized ascites. Dictated by: Margarito Ralph MD on 09/20/2019 10:22 AM. .
[2019-09-20] MEDS: BREO (FLUTICASONE/VILANTEROL) 200MCG/25MCG INHALER INH SCH (12:25)
[2019-09-20] MEDS: TRAMADOL HCL 50 MG TABLET PO PRN (13:30)
[2019-09-20] MEDS: SPIRONOLACTONE 25 MG TAB PO SCH (13:56)
[2019-09-20] MEDS: FUROSEMIDE IV 20MG/2ML VIAL IVP SCH (14:14)
--- NOTE | 2019-09-20 14:45 | Rehab Evaluation ---
Patient Information - Patient Information Diagnosis: Symptomatic Anemia, shortness of breath Ordered Treatment: OT Evaluate and Treat Status: Initial Evaluation Surgery: No Past Medical/Surgical Hx: PAST MEDICAL/SURGICAL HISTORY Past Surgical History R. wrist FX pinned, Gall bladder, appy, tubal ligation bone graft left hip PMH - Respiratory Hx Respiratory Disorders Yes Hx Asthma Yes Hx Bronchitis Yes Hx Chronic Obstructive Yes Pulmonary Disease (COPD) Hx Dyspnea Yes Hx Pneumonia Yes Hx Pulmonary Embolism No Hx Sleep Apnea Yes Hx Tuberculosis No Hx of CPAP Yes PMH - Cardiovascular Hx Cardiovascular Disorders No Hx Hypertension Yes PMH - Neuro Hx Neurological Disorders Yes Hx Headaches Yes PMH - GI Hx Gastrointestinal Disorders Yes Hx Crohn's Disease Yes Hx Gastrointestinal Bleed Yes Hx Rectal Bleeding Yes Hx Ulcer Yes PMH - Hx Genitourinary Disorders No Hx Age of Menopause 47 PMH - Endocrine Hx Endocrine Disorders Yes Hx Diabetes Yes: takes po meds Hx Thyroid Disease No PMH - Musculoskeletal Hx Musculoskeletal Disorders Yes Hx Arthritis Yes Hx Fibromyalgia Yes Hx Musculoskeletal Disease Yes Comment: knees and hips bad PMH - Psych Hx Psychiatric Problems Yes Hx Anxiety Yes Hx Depression Yes PMH - Hematology/Oncology Hx Hematology/Oncology No Disorders Premorbid Status: Detail (Pt was independent with ADLs however since fracturing her left humerus and being NWB on the left extremity, pt has had help with pulling left side of pants and underwear over hips and donning deoderant. Pt used fuel assembler to pick items off floor due to OA in back and knees but has not used fuel assembler for dressing. Pt uses home O2 (2L) at night while sleeping. Pt was cooking and cleaning independently until fracturing left humerus and now has some help from roommate. Pt uses motorized cart in grocery stores to do shopping and sits to shower.) Social History: Detail (Pt lives in a small 1-story house with 3 steps to enter and railing on right side. Since fracturing her left humerus, pt has had a roommate move in from [place] to assist with some LB drsg needs and cooking. Her daughter (Sandro) lives in [place] and works in family practice so is able to assist in pt's care. She ambulates without device [employer]YING [employer]ACH[employer] but does experience difficulty walking due to bad OA in knees, hips, and back and the stiffness it causes. She has a tub/shower combo with shower bench and hand held shower head. Patient sits to shower and states that she showers 1x a week with the occassional washing of hair in the sink due to dry skin issues. There are no grab bars in shower or around toilet. Pt has standard height toilet and uses window sill to assist with sit to stand t/f's off toilet.) Precautions: [place], Fall, Other (NWB on Left upper extremity. LUE to remain in sling unless showering or dressing.) - Time With Patient Total Time Spent With Patient (Min): 25 Treatment Procedures: Detail (eval LOW OT) Subjective Information - Subjective Information Per Patient Objective Data - Pain Pain Present: Yes (Pt states that she is always in some sort of pain it just fluctuates in intensity.) - Mental Status Patient Orientation: Oriented x3 - Visual Perception Appears within normal limits for therapeutic activities (Pt wears glasses) - ROM Not within normal limits (Pt is WNL for RUE however LUE was not tested due to precautions and NWB status. Left wrist movements were WNL and pt able to make bilateral full fist.) - Strength/Tone Not within normal limits (Pt fractured RUE 2 years ago but states ROM and strength have returned to normal. Pt shows some weakness with MMT at 3+/5 for right shoulder abd and flex but was 4+/5 for shld ext, shld add, elbow flex and ext. Mildly weakened gross grasp bilaterally.) - Coordination Appears within normal limits for therapeutic activities - Bed Mobility Independent (supine > short sit at edge of bed) - Transfers Independent (sit <> stand t/f) - Balance Balance Sitting: Good - Sensation Intact - Gait Detail (See PT note. Pt ambulated SBA for safety from bed to room door and back without device. Some unsteadiness noted.) - ADL's/IADL's Detail (Pt refused don/doff of splint due to how long it takes to put on and pain. Pt states that doctor is calling for L shld replacement but is unable to perform the sx until HgB levels are steady. She was informed that drsg and showering will be a task that therapy will want to assess in order to note any safety issues and provide solutions for drsg to increase independence in this area. Will need to further address ADLs.) Therapy Assessment - Therapy Assessment Detail (Pt is functioning at high levels with functional mobility. She shows some weakness in RUE as well as expresses difficulty with self care tasks due to LUE in sling and NWB status. Will need to further address evaluation of ADLs as pt refused at this time.) Problem List - Problem List Occupational Therapy Problem List: Detail (1. RUE weakness 2. Difficulty with self care tasks due to LUE in NWB status 3. Safety concerns with functional mobility 4. Decreased independence with LB drsg 5. Need to evaluate drsg and showering) Goals - Goals Occupational Therapy Goals: 1. Evaluate independence and safety with dressing and showering. 2. Pt to be independent with showering from seated position. 3. Pt to be independent with sling don/doff. 4. Pt to be independent to min A with LB drsg Prognosis - Prognosis Good Plan - Plan Occupational Therapy Plan: OT to see pt 2-4x a week Friday through Friday to address UE weakness and decreased independence with self care tasks.
--- NOTE | 2019-09-20 14:47 | Rehab Evaluation ---
Patient Information - Patient Information Diagnosis: Symptomatic anemia, Shortness of breath Ordered Treatment: PT Evaluate and Treat Status: Initial Evaluation Surgery: No History: Detail (Patient was admitted to the inpatient floor from the ED on 09/16/19 with complaints of shortness of breath, and increased swelling.) Past Med/Leno Hx Detail: Detail Past Medical/Surgical Hx: PAST MEDICAL/SURGICAL HISTORY Past Surgical History R. wrist FX pinned, Gall bladder, appy, tubal ligation bone graft left hip PMH - Respiratory Hx Respiratory Disorders Yes Hx Asthma Yes Hx Bronchitis Yes Hx Chronic Obstructive Yes Pulmonary Disease (COPD) Hx Dyspnea Yes Hx Pneumonia Yes Hx Pulmonary Embolism No Hx Sleep Apnea Yes Hx Tuberculosis No Hx of CPAP Yes PMH - Cardiovascular Hx Cardiovascular Disorders No Hx Hypertension Yes PMH - Neuro Hx Neurological Disorders Yes Hx Headaches Yes PMH - GI Hx Gastrointestinal Disorders Yes Hx Crohn's Disease Yes Hx Gastrointestinal Bleed Yes Hx Rectal Bleeding Yes Hx Ulcer Yes PMH - Hx Genitourinary Disorders No Hx Age of Menopause 47 PMH - Endocrine Hx Endocrine Disorders Yes Hx Diabetes Yes: takes po meds Hx Thyroid Disease No PMH - Musculoskeletal Hx Musculoskeletal Disorders Yes Hx Arthritis Yes Hx Fibromyalgia Yes Hx Musculoskeletal Disease Yes Comment: knees and hips bad PMH - Psych Hx Psychiatric Problems Yes Hx Anxiety Yes Hx Depression Yes PMH - Hematology/Oncology Hx Hematology/Oncology No Disorders Premorbid Status: Detail (Patient reports that she fell on June 08, breaking her L arm. She has been in a sling since this time, and the fracture is not healing she states. She reports that she did not use an assisstive device before this hospitalization and assistance with cooking and cleaning.) Social History: Detail (Patient lives in a 1-story house with a roommate. There are 3 steps to enter with a railing on the R when entering. In the bathroom there is a tub/shower combination with a shower bench and hand-held shower head, but no grab bars. The toilet is of standard height and there is a window sill nearby that the patient uses to help rise from the toilet. Patient reports that she uses 2L of O2 at night. Patient reports that she does not have any ADs at home. She reports that stairs are difficulty for her and she has to use a mobile cart at the grocery store.) Precautions: [place], Fall - Time With Patient Total Time Spent With Patient (Min): 30 Treatment Procedures: Detail (Initial evaluation; low complexity The patient was left sitting at the edge of the bed with her call light and bedside table within reach.) Subjective Information - Subjective Information Per Patient (Patient reports that she experiences stiffness with walking. S) Objective Data - Pain Pain Present: No (Patient stated that she had no pain at the time of the evaluation, but usually has pain most of the time.) - Mental Status Patient Orientation: Oriented x3 (Patient was able to correctly identify her age, birthdate, current month and year, current location, and current president.) - Visual Perception Appears within normal limits for therapeutic activities - ROM Within normal limits (LE AROM is WNL for functional activities.) - Strength/Tone Other (R hip flexion 3+/5, L hip flexion 4/5, bilateral hip adduction 5/5, bilateral hip abduction 4/5, R knee flexion 5/5, L knee flexion 4/5, bilateral knee extension 4/5, bilateral ankle dorsiflexion 5/5) - Coordination Appears within normal limits for therapeutic activities - Bed Mobility Independent (Patient was independent in all bed mobility tasks.) - Transfers Independent (Patient was independent in supine to sit, sit to stand, and stand to sit. After transfers, patient was short of breath.) - Balance Balance Sitting: Good Balance Standing: Fair (Patient started walking immediately after standing and experienced loss of balance that she was able to self correct.) - Sensation Intact - Gait Detail (Patient ambulated 20 feet with contact guard of 1 without an assistive device. She ambulates with a reciprocal step through gait pattern, with a side to side weight shift of the trunk during ambulation. She was short of breath after ambulating.) Therapy Assessment - Therapy Assessment Detail (Patient presents with decreased lower extremity strength, decreased endurance, and gait abnormalities that would make her a good candidate for inpatient physical therapy. She would benefit from therapy to return to her prior functional status to be able to return home independently.) Problem List - Problem List Physical Therapy Problem List: Detail (1. Decreased lower extremity strength 2. Decreased endurance 3. Gait abnormalities 4. Decreased tolerance for stairs 5. Instability for dynamic tasks) Goals - Goals Physical Therapy Goals: 1. Patient will be able to ascend and descend 3 stairs safely with supervision to get in and out of her home. 2. Patient will be able to ambulate 100 feet independently and safely to get around her home following discharge. 3. Patient's balance will be assessed using an objective balance outcome measure. 4. Patient will be independent and demonstrate good technique of HEP exercises to help increase and maintain LE strength. Prognosis - Prognosis Good Plan - Plan Physical Therapy Plan: The patient will be seen 1-2x a day, M-F, during her inpatient stay for gait training, stair training, balance exercises, HEP instruction, and therapeutic exercises and activities.
--- NOTE | 2019-09-20 15:53 | Physician Progress Note ---
Subjective - Date Date of Physician Progress Note: 09/20/19 - Subjective Subjective Comment: 09/17/19 1730 Vitals: T 98.0, HR 94, RR 20, SpO2 98% on RA, BP 146/87 Pt was observed sitting up at the bedside with right leg dangling in a dependent position. She reported that she was getting alot of edema in her legs, all the way up to her hips bilaterally. She had mild conversational dyspnea. Reported feeling nauseated and unable to eat alot of food at one time d/t feeling so fu ll. When asked about when her liver biopsy is scheduled, she reported that it hasn't been scheduled yet d/t her constant coughing. She c/o pain in bilateral legs and hips d/t the edema, normally takes Ultram 50mg PO BID at home. 09/18/19 1230 Vitals: T98.2, HR 101, BP 131/53, RR 19, SP02 97% RA Sitting up at the bedside. Reported that the edema had not decreased much. Still feels very "full" of fluid. Had 2 units of PRBCS and an Iron infusion between and Friday and Hgb only 7.6. Discussed possibility of seeing a Heme/Onc doctor on an outpatient basis. Pt agreeable as she would like to get her shoulder fixed and does not think that Ortho will do it with her hgb that low. Discussed possibility of paracentesis, pt agreed that this would be helpful. 09/19/19 1400 Lying in bed, resting. Easily arousable. Had a 2 lb weight loss overnight. States that she is able to sleep at night with the diuretic regimen that she got yesterday, she was not up all night urinating. Is concerned that she is getting cellulitis to BLE d/t increasing warmth and redness. Is prone to getting celluli tis. Pt to have an abdominal U/S tomorrow morning to evaluate ascites and if significant enough, she will be set up for paracentesis with IR. 09/20/19 1100 Had another 2 lb weight loss over night. Had abdomen ultrasound which showed ascites. Will have paracentesis with IR tomorrow @ 1100. PT/OT evaluation for possible [facility] stay. Doing well with current regimen. Objective - Vital Signs Vital Signs: Vital Signs - Last 24 Hrs Temp Pulse Pulse Resp BP BP Pulse Ox 09/20/19 09:37 98.5 F 94 H 18 150/68 95 09/20/19 09:00 20 09/20/19 06:34 98.2 F 94 H 18 144/70 95 09/20/19 03:00 98.1 F 91 H 20 150/74 98 09/20/19 02:58 95 H 24 99 09/19/19 23:00 98.2 F 83 18 101/83 99 09/19/19 19:45 98.1 F 86 18 113/32 95 - General General Appearance: Alert, Oriented x3, Cooperative, No acute distress Limitations: No limitations - Head Head exam: Atraumatic, Normal inspection - Eye Eye exam: Normal appearance, PERRL, EOMI - ENT ENT exam: Mucous membranes moist Ear exam: Normal external inspection Nasal Exam: Normal inspection - Neck Neck exam: Normal inspection. negative: Lymphadenopathy, Tenderness - Respiratory Respiratory exam: Rhonchi (RUL), Wheezes - Cardiovascular Cardiovascular Exam: Regular rate, Normal rhythm, Systolic murmur Peripheral Pulses: 2+: Radial (R), Radial (L) - GI/Abdominal GI/Abdominal exam: Soft, Tenderness - Rectal Rectal exam: Deferred - exam: Deferred - Extremities Extremities exam: Pedal edema (pt with skin changes typical of venous insuf, 2 + pitting edeam to hips bilateral. No open sores), Tenderness (left shoulder in sling due to current humerus fx). negative: Calf tenderness - Back Back exam: Reports: Normal inspection - Neurological Neurological exam: Alert, Oriented X3. negative: Motor sensory deficit - Psychiatric Psychiatric exam: Normal affect, Normal mood. negative: Anxious, Depressed - Skin Skin exam: Erythema (to BLE ), Normal color Assessment and Plan - Assessment and Plan (1) Shortness of breath Current Visit: Yes Status: Acute Base Code: R06.02 - SHORTNESS OF BREATH Comment: 09/20/19: - Increasing dyspnea with exertion, mild conversational dyspnea - Troponin neg - D-dimer 4.37, CTA chest: Negative for PE - BNP 418 - Lasix IV 40mg q. AM and 20mg @ 1400 - KCl added - Continue Hctz 12.5mg - CMP ordered for the a.m. to monitor kidney function - Echocardiogram ordered (2) Ascites Current Visit: Yes Status: Acute Base Code: R18.8 - OTHER ASCITES Comment: 09/20/19 - Abdominal U/S scheduled on Friday09/20/19 - Paracentisis tomorrow @ 1100 with I.R. (3) Edema of both legs Current Visit: Yes Status: Acute Base Code: R60.0 - LOCALIZED EDEMA Comment: 09/20/19 - Possibily r/t potential liver dx as pt is awaiting to be scheduled for a liver biopsy - 2+ pitting edema to BLE from foot to hip - Lasix increased to 40mg IV in the a.m - Start Spironolactone 100mg daily - Stop Hctz and K+ - Encouraged to keep legs elevated (4) Symptomatic anemia Current Visit: Yes Status: Acute Base Code: D64.9 - ANEMIA, UNSPECIFIED Comment: 09/20/19: - Hgb 6.5 --> 7.8 --> 7.6 - Had 2 units of PRBCs and an Iron Infusion - Check CBC in the a.m. - Supplemental oxygen to keep pulse ox >92% - Recent work-up by GI with colonoscopy and EGD negative for source of bleeding - Scheduled for liver biposy to evaluate for cirrhosis - Consider Hem/onc outpatient for continued anemia (5) DVT prophylaxis Current Visit: Yes Status: Acute Base Code: [id number] - Comment: 09/20/19: - Moderate risk due to decreased mobility and hospitalization - Lovenox 40mg daily, monitoring platelets (6) Full code status Current Visit: Yes Status: Chronic Base Code: Z78.9 - OTHER SPECIFIED HEALTH STATUS Comment: 09/20/19: -Pt has full code status this admission Results - Labs Result Diagrams: 09/19/19 06:15 09/19/19 06:15 DVT/PE Assessment - Risk for VTE Risk for VTE: No Risk Level: Moderate Risk Assessment Date: 09/16/19 Risk Assessment Time: 17:00 VTE Orders Placed or Will Be Placed: Yes - Active Medicaitons Current Medications: Current Medications Acetaminophen (Tylenol 325mg) 650 mg PO Q4H PRN PRN Reason: PAIN - MILD(1-4)/FEVER Albuterol Sulfate (Ventolin Hfa) 2 puff INH Q4H PRN PRN Reason: WHEEZING Last Admin: 09/20/19 02:58 Dose: 2 puff Documented by: Albuterol/Ipratropium (Duoneb) 3 ml INH Q4HR PRN PRN Reason: WHEEZING Last Admin: 09/16/19 21:46 Dose: 3 ml Documented by: Amlodipine Besylate (Norvasc) 10 mg PO DAILY [facility] Last Admin: 09/20/19 09:42 Dose: 10 mg Documented by: Enoxaparin Sodium (Lovenox) 40 mg SQ DAILY [facility] Last Admin: 09/20/19 09:42 Dose: 40 mg Documented by: Furosemide (Lasix Iv) 40 mg IVP DAILY [facility] Last Admin: 09/20/19 09:43 Dose: 40 mg Documented by: Hydrochlorothiazide (Hctz 12.5mg) 12.5 mg PO DAILY [facility] Last Admin: 09/20/19 09:42 Dose: 12.5 mg Documented by: Hydroxyzine Pamoate (Vistaril) 25 mg PO TID PRN PRN Reason: ANXIETY Last Admin: 09/20/19 13:29 Dose: 25 mg Documented by: Ibuprofen (Motrin 400mg) 800 mg PO Q8H PRN PRN Reason: PAIN - MILD TO MODERATE (1-7) Last Admin: 09/20/19 02:11 Dose: 800 mg Documented by: Lisinopril (Zestril) 40 mg PO DAILY [facility] Last Admin: 09/20/19 09:43 Dose: 40 mg Documented by: Montelukast Sodium (Singulair) 10 mg PO QHS [facility] Last Admin: 09/19/19 21:40 Dose: 10 mg Documented by: Morphine Sulfate (Morphine Sulfate) 1 mg IVP Q4H PRN PRN Reason: PAIN - SEVERE (8-10) Stop: 09/24/19 17:41 Last Admin: 09/18/19 00:25 Dose: 1 mg Documented by: Ondansetron HCl (Zofran Odt) 4 mg SL Q8H PRN PRN Reason: NAUSEA/VOMITING Last Admin: 09/19/19 23:22 Dose: 4 mg Documented by: Pantoprazole Sodium (Protonix) 40 mg PO BID [facility] Last Admin: 09/20/19 09:42 Dose: 40 mg Documented by: Spironolactone (Aldactone) 100 mg PO DAILY [facility] Last Admin: 09/20/19 13:56 Dose: 100 mg Documented by: Tramadol HCl (Ultram) 50 mg PO TID PRN PRN Reason: PAIN - MOD TO SEVERE (5-10) Last Admin: 09/20/19 13:30 Dose: 50 mg Documented by: Trimethoprim/Sulfamethoxazole (Bactrim Ds) 1 each PO BID MARGARITO Stop: 09/26/19 22:01 Last Admin: 09/20/19 09:42 Dose: 1 each Documented by: CHAYA Plan - Labs Result Diagrams: 09/19/19 06:15 09/19/19 06:15
[2019-09-20] MEDS: MONTELUKAST SODIUM 10MG TABLET PO SCH (21:09)
[2019-09-21] MEDS: ONDANSETRON 4 MG ODT TABLET SL PRN
[2019-09-21] MEDS: TRAMADOL HCL 50 MG TABLET PO PRN ×2 (00:02→13:37)
[2019-09-21 06:32] LABS: HEMATOCRIT 25.6 % (35.0-47.0); HEMOGLOBIN 7.7 gm/dl (11.6-16.0); MEAN CELL VOLUME 82.3 fl (81-97); MEAN CORPUSCULAR HGB CONC 30.1 g/dl (32-36); MEAN PLATELET VOLUME 8.6 fl (7.4-10.4); PLATELET COUNT 84 K/uL (130-400); RED BLOOD COUNT 3.11 M/uL (3.80-5.40); RED CELL DISTRIBUTION WIDTH 19.2 % (11.5-14.5); WHITE BLOOD COUNT W/O DIFF 3.1 K/uL (4.2-12.2)
[2019-09-21 06:35] LABS: MEAN CORPUSCULAR HEMOGLOBIN 24.7 pg (27-33)
[2019-09-21 06:46] LABS: ANISOCYTOSIS 1+; HYPOCHROMIA 1+; PLATELET ESTIMATE DECREASED (NORMAL)
[2019-09-21 06:50] LABS: ALB/GLOB RATIO 0.7 (1.1-1.8); ALBUMIN 2.8 g/dL (4.0-5.0); ALKALINE PHOSPHATASE 125 U/L (35-104); ALT/SGPT 12 U/L (<33); AST/SGOT 34 U/L (10.0-35.0); BLOOD UREA NITROGEN 9 mg/dL (8-23); CREATININE 0.9 mg/dL (0.5-0.9); EST GLOMERULAR FILTRATION RATE > 60 mL/min; GLUCOSE,RANDOM 103 mg/dL (74-109); TOTAL PROTEIN 6.8 g/dL (6.6-8.7)
[2019-09-21] MEDS: SPIRONOLACTONE 25 MG TAB PO SCH (09:32)
[2019-09-21] MEDS: ENOXAPARIN 40 MG/0.4 ML SYR SQ SCH (09:32)
[2019-09-21] MEDS: TMP/SMZ 160MG/800MG TAB PO SCH (09:33)
[2019-09-21] MEDS: AMLODIPINE BESYLATE 5MG TAB PO SCH (09:33)
[2019-09-21] MEDS: PANTOPRAZOLE SODIUM 40 MG TABLET PO SCH (09:33)
[2019-09-21] MEDS: LISINOPRIL 20 MG TABLET PO SCH (09:33)
[2019-09-21] MEDS: FUROSEMIDE IV 40MG/4ML VIAL IVP SCH (14:11)
[2019-09-21] MEDS: BREO (FLUTICASONE/VILANTEROL) 200MCG/25MCG INHALER INH SCH (14:14)
--- NOTE | 2019-09-21 14:55 | Discharge Summary ---
Providers Discharge Summary Date: 09/21/19 Date of admission: 09/17/19 18:10 Attending physician: REINA CUEVA Primary care physician: Ro Torres N.P. Physical Exam - Vital Signs Vital Signs: Vital Signs - Last 24 Hrs Temp Pulse Pulse Resp BP Pulse Ox 09/21/19 12:00 98.1 F 97 H 141/50 95 09/21/19 07:00 98.6 F 88 16 145/45 99 09/21/19 01:20 99.1 F 79 18 160/76 99 09/20/19 21:25 86 20 93 L 09/20/19 21:00 24 09/20/19 20:15 99.5 F 89 20 127/79 95 - General General Appearance: Alert, Oriented x3, Cooperative, No acute distress Limitations: No limitations - Head Head exam: Atraumatic, Normal inspection - Eye Eye exam: Normal appearance, PERRL, EOMI - ENT ENT exam: Mucous membranes moist Ear exam: Normal external inspection Nasal Exam: Normal inspection - Neck Neck exam: Normal inspection. negative: Lymphadenopathy, Tenderness - Respiratory Respiratory exam: Wheezes - Cardiovascular Cardiovascular Exam: Regular rate, Normal rhythm, Systolic murmur Peripheral Pulses: 2+: Radial (R), Radial (L) - GI/Abdominal GI/Abdominal exam: Soft, Tenderness - Rectal Rectal exam: Deferred - exam: Deferred - Extremities Extremities exam: Pedal edema (1+ pitting edema from ankles to hips), Tenderness (left shoulder in sling due to current humerus fx). negative: Calf tenderness - Back Back exam: Reports: Normal inspection - Neurological Neurological exam: Alert, Oriented X3. negative: Motor sensory deficit - Psychiatric Psychiatric exam: Normal affect, Normal mood. negative: Anxious, Depressed - Skin Skin exam: Erythema (to BLE ), Normal color Hospitalization - Hospitalization Admission Diagnosis: Symptomatic Anemia. Shortness of breath - Problem List/Discharge Diagnosis (1) Shortness of breath Status: Acute Base Code: R06.02 - SHORTNESS OF BREATH Comment: 09/21/19: - No conversational dyspnea noted following paracentesis - Had another 2 lb weight loss overnight with use of IV Lasix and Spironolactone - Furosemide changed to PO 40mg daily - Continue Spironolactone 100mg daily - 3100ml fluid removed during paracentesis today - CMP ordered for the a.m. to monitor kidney function - Echocardiogram: EF 65-70%, LVH, mild valvular issues (2) Ascites Status: Acute Base Code: R18.8 - OTHER ASCITES Comment: 09/21/19 - 3100ml fluid removed from paracentesis today - No conversational dyspnea (3) Edema of both legs Status: Acute Base Code: R60.0 - LOCALIZED EDEMA Comment: 09/21/19 - Possibily r/t potential liver dx as pt is awaiting to be scheduled for a liver biopsy - Pitting edema decreased from +2 to +1 to BLE from foot to hip - Lasix 40mg daily changed from IV to PO, d/c the 20mg dose - Continue Spironolactone 100mg daily - Encouraged to keep legs elevated (4) Symptomatic anemia Status: Acute Base Code: D64.9 - ANEMIA, UNSPECIFIED Comment: 09/21/19: - Hgb 6.5 --> 7.8 --> 7.6 --> 7.7 - Had 2 units of PRBCs and an Iron Infusion this visit - Supplemental oxygen to keep pulse ox >92% - Recent work-up by GI with colonoscopy and EGD negative for source of bleeding - Scheduled for liver biposy to evaluate for cirrhosis - Consider Hem/onc outpatient for continued anemia (5) DVT prophylaxis Status: Acute Base Code: [id number] - Comment: 09/21/19: - Moderate risk due to decreased mobility and hospitalization - Lovenox 40mg daily, monitoring platelets (6) Full code status Status: Chronic Base Code: Z78.9 - OTHER SPECIFIED HEALTH STATUS Comment: 09/21/19: -Pt has full code status this admission (7) Depression Status: Acute Base Code: F32.9 - MAJOR DEPRESSIVE DISORDER, SINGLE EPISODE, UN SPECIFIED Comment: 09/21/19 -Little interest in activities, feeling down and depressed -Trial Cymbalta 30mg daily which may also have benefit in pain control (8) Sleep disturbance Status: Acute Base Code: G47.9 - SLEEP DISORDER, UNSPECIFIED Comment: 09/21/19 -Poor sleep, wakes up frequently -Has tried Melatonin in the past which was ineffective -Trial Trazodone 50mg q. HS - Hospitalization Course Disposition: Moved to Swing Bed Hospital Course: 68 year old female patient presented to ED via EMS with complaints of SOB for several days. Patient also reports noting swelling of her legs for a couple weeks as well. Patient reports an intermittent non-productive cough as well. Denies fever, chills, chest pain, dizziness, or syncope. Patient has an extensive history of COPD and asthma, but states this SOB feels different. Reports having to stop within the home when just ambulating to go to the bathroom. Patient has recently had a work-up from GI for anemia, which included negative upper and lower scopes. She is also scheduled for a liver biopsy with GI as well. Patient reports having several blood transfusions during hospitalizations over the past 2 months with no source of the anemia identified. Patient also has a broken left humerus, for which she is following with Dr. Sellers. Patient's past medical history includes HTN, Asthma, and COPD. PCP: Ro Torres ED Course: d-dimer 4.87 Trop <0.01 BNP 418 CXR: left sided opacities, edema vs pneumonia 2U PRBC 09/16/19: Patient A&O x 4, mild conversational dyspnea noted. Edema of bilateral legs as well. Receiving 2U PRBC. 09/17/19 1730 Vitals: T 98.0, HR 94, RR 20, SpO2 98% on RA, BP 146/87 Pt was observed sitting up at the bedside with right leg dangling in a dependent position. She reported that she was getting alot of edema in her legs, all the way up to her hips bilaterally. She had mild conversational dyspnea. Reported feeling nauseated and unable to eat alot of food at one time d/t feeling so full. When asked about when her liver biopsy is scheduled, she reported that it hasn't been scheduled yet d/t her constant coughing. She c/o pain in bilateral legs and hips d/t the edema, normally takes Ultram 50mg PO BID at home. 09/18/19 1230 Vitals: T98.2, HR 101, BP 131/53, RR 19, SP02 97% RA Sitting up at the bedside. Reported that the edema had not decreased much. Still feels very "full" of fluid. Had 2 units of PRBCS and an Iron infusion between and Friday and Hgb only 7.6. Discussed possibility of seeing a Heme/Onc doctor on an outpatient basis. Pt agreeable as she would like to get her shoulder fixed and does not think that Ortho will do it with her hgb that low. Discussed possibility of paracentesis, pt agreed that this would be helpful. 09/19/19 1400 Lying in bed, resting. Easily arousable. Had a 2 lb weight loss overnight. States that she is able to sleep at night with the diuretic regimen that she got yesterday, she was not up all night urinating. Is concerned that she is getting cellulitis to BLE d/t increasing warmth and redness. Is prone to getting cellulitis. Pt to have an abdominal U/S tomorrow morning to evaluate ascites and if significant enough, she will be set up for paracentesis with IR. 09/20/19 1100 Had another 2 lb weight loss over night. Had abdomen ultrasound which showed ascites. Will have paracentesis with IR tomorrow @ 1100. PT/OT evaluation for possible [facility] stay. Doing well with current regimen. 09/21/19 1545 Underwent paracentesis with IR this a.m. where 3100ml fluid was removed. Pt reports some improvement with breathing and no conversational dyspnea noted. She feels that edema has gone down in her feet and ankles. Family brought up concerns of depression as they stated she has little ambition and hasn't showered in several weeks. When discussed with pt, she admitted to feeling some depression and anxiety. Also reported that she has difficulty sleeping at night. Procedures: Imaging and X-Rays 09/16/19 15:10 CHEST 1 VIEW [RAD] Stat 09/16/19 20:33 CHEST CTA w contrast [CTA] Stat 09/20/19 07:42 ABDOMEN, LIMITED [US] Stat 09/21/19 10:26 PARACENTESIS w US GUIDANCE [US] Routine Cardiology Procedures 09/16/19 15:10 Braille Teacher NOW EKG NOW 09/19/19 14:05 Echo W/CF & Cardiac Doppler ONCE Abnormal Labs: Abnormal Lab Results 09/16/19 09/16/19 09/16/19 Range/Units 15:26 15:26 15:26 WBC 3.7 L (4.2-12.2) K/uL RBC 2.71 L (3.80-5.40) M/uL Hgb 6.5 L* (11.6-16.0) gm/dl Hct 21.7 L (35.0-47.0) % MCV 80.1 L (81-97) fl MCH 23.9 L (27-33) pg MCHC 30.0 L (32-36) g/dl RDW 16.6 H (11.5-14.5) % Plt Count 113 L (130-400) K/uL Lymphocytes % (16-45) % Monocytes % (0-9) % Eosinophils % (0-6) % Lymphocytes 12.0 L (16-45) % Monocytes 17.0 H (0-9) % Eosinophil Count 8.0 H (0-6) % D-Dimer 4.37 H (0-0.59) mg/L FEU Sodium 126 L (136-145) mmol/L Chloride 92 L (98-107) mmol/L Calcium 8.4 L (8.8-10.2) mg/dL Total Bilirubin 1.40 H (0.2-1.0) mg/dL Alkaline Phosphatase 142 H (35-104) U/L NT-Pro-B Natriuret Pep 418.00 H (<125) pg/mL Albumin 3.1 L (4.0-5.0) g/dL Albumin/Globulin Ratio 0.8 L (1.1-1.8) 09/17/19 09/17/19 09/18/19 Range/Units 07:45 07:45 06:00 WBC (4.2-12.2) K/uL RBC 3.24 L (3.80-5.40) M/uL Hgb 7.8 L (11.6-16.0) gm/dl Hct 25.9 L (35.0-47.0) % MCV 79.9 L (81-97) fl MCH 24.0 L (27-33) pg MCHC 30.1 L (32-36) g/dl RDW 16.0 H (11.5-14.5) % Plt Count 110 L (130-400) K/uL Lymphocytes % 8.7 L (16-45) % Monocytes % 15.0 H (0-9) % Eosinophils % 6.3 H (0-6) % Lymphocytes (16-45) % Monocytes (0-9) % Eosinophil Count (0-6) % D-Dimer (0-0.59) mg/L FEU Sodium 129 L 131 L (136-145) mmol/L Chloride 94 L 95 L (98-107) mmol/L Calcium 8.5 L 8.4 L (8.8-10.2) mg/dL Total Bilirubin 2.10 H (0.2-1.0) mg/dL Alkaline Phosphatase 135 H (35-104) U/L NT-Pro-B Natriuret Pep (<125) pg/mL Albumin 2.9 L (4.0-5.0) g/dL Albumin/Globulin Ratio 0.8 L (1.1-1.8) 09/18/19 09/19/19 09/19/19 Range/Units 06:00 06:15 06:15 WBC 4.0 L (4.2-12.2) K/uL RBC 3.12 L 3.10 L (3.80-5.40) M/uL Hgb 7.6 L 7.6 L (11.6-16.0) gm/dl Hct 25.1 L 25.1 L (35.0-47.0) % MCV 80.4 L (81-97) fl MCH 24.3 L 24.5 L (27-33) pg MCHC 30.3 L 30.3 L (32-36) g/dl RDW 16.6 H 17.1 H (11.5-14.5) % Plt Count 91 L 100 L (130-400) K/uL Lymphocytes % (16-45) % Monocytes % (0-9) % Eosinophils % (0-6) % Lymphocytes 8.0 L 12.0 L (16-45) % Monocytes 18.0 H 12.0 H (0-9) % Eosinophil Count 9.0 H (0-6) % D-Dimer (0-0.59) mg/L FEU Sodium 130 L (136-145) mmol/L Chloride 93 L (98-107) mmol/L Calcium 8.3 L (8.8-10.2) mg/dL Total Bilirubin 1.60 H (0.2-1.0) mg/dL Alkaline Phosphatase 134 H (35-104) U/L NT-Pro-B Natriuret Pep (<125) pg/mL Albumin 2.9 L (4.0-5.0) g/dL Albumin/Globulin Ratio 0.7 L (1.1-1.8) 09/21/19 09/21/19 Range/Units 06:15 06:15 WBC 3.1 L (4.2-12.2) K/uL RBC 3.11 L (3.80-5.40) M/uL Hgb 7.7 L (11.6-16.0) gm/dl Hct 25.6 L (35.0-47.0) % MCV (81-97) fl MCH 24.7 L (27-33) pg MCHC 30.1 L (32-36) g/dl RDW 19.2 H (11.5-14.5) % Plt Count 84 L (130-400) K/uL Lymphocytes % (16-45) % Monocytes % (0-9) % Eosinophils % (0-6) % Lymphocytes 13.0 L (16-45) % Monocytes 16.0 H (0-9) % Eosinophil Count (0-6) % D-Dimer (0-0.59) mg/L FEU Sodium 127 L (136-145) mmol/L Chloride 92 L (98-107) mmol/L Calcium 8.6 L (8.8-10.2) mg/dL Total Bilirubin 1.40 H (0.2-1.0) mg/dL Alkaline Phosphatase 125 H (35-104) U/L NT-Pro-B Natriuret Pep (<125) pg/mL Albumin 2.8 L (4.0-5.0) g/dL Albumin/Globulin Ratio 0.7 L (1.1-1.8) Condition at Discharge: (3) Guarded Discharge Medications - Discharge Medications Home Medications: Ambulatory Orders Hydroxyzine Pamoate 25 mg PO TID PRN 04/01/19 [Last Taken 09/15/19 22:00] Ferrous Sulfate 325 mg PO DAILY 09/16/19 [Last Taken 09/15/19 08:00] Pantoprazole Sodium [Protonix] 20 mg PO BID 09/16/19 [Last Taken 09/16/19 08:00] Discharge Plan - Discharge Instructions Instructions: Sulfamethoxazole/Trimethoprim (By mouth), Anemia (DC), Shortness of Breath (DC) Additional Instructions: Activity: Up as tolerated Per physical therapy Diet: As tolerated ADA Consults: [] Follow Up: [after swing bed need follow up] Dressing/Wound Care: (Type) (Change) Additional: [] Quality Measures - Quality Measures Quality Measures: Advance Directives, Documentation of Current Medications in Medical Record, Elder Maltreatment Screen and Follow-Up Plan, Screening for High Blood Pressure and F/U Documented - Current Medications Quality Measure: Measure #130: Documentation of Current Medications Documentation of Current Medications: <Current Medications Documented/Reviewed> [A0187] - Blood Pressure Screening Quality Measure: Screening for High Blood Pressure and Follow-Up Documented Does Patient Have Any of the Following: No Blood Pressure Classification: Pre-Hypertensive BP Reading Systolic Measurement: 130 Diastolic Measurement: 67 Screening for High Blood Pressure: < Pre-Hypertensive BP, F/U Documented > [Y8950] Pre-Hypertensive Follow-up Interventions: Referral to alternative/primary care provider. - Advance Directives Quality Measure: Measure #47: Care Plan Advance Directives Established: No Advance Directives Information Provided To Patient: Already Provided Advance Directives on File: No Living Will: Yes Power of Expansion Joint Finisher: Yes Power of Expansion Joint Finisher Name: HANNAH NELSON Advance Care Planning: <Care Plan/Decision Maker Documented; Discussed & Documented> [7473F] - Elder Abuse Suspicion Index Screening: Elder Abuse Suspicion Index Screening Rely on people for bathing, dressing, shopping, banking, etc: No Prevented from getting food, clothes, medication, etc: No Made to feel shamed or threatened by someone: No Forced to sign papers or use money against will: No Feel afraid, touched in ways not wanted or hurt physically: No Poor eye contact, withdrawn, malnourished, cuts or bruises: No Screening Result: Negative result EASI Reference Information: Cleve MARTINEZ, Mateusz C, Aileen D, Conrad Blakely.Development and validation of a tool to assist physicians identification of elder abuse: The Elder Abuse Suspicion Index (EASI ). Journal of Elder Abuse and Neglect, 2008; 20 (3): 276-300. - Elder Maltreatment Screen Quality Measures: Elder Maltreatment Screen and Follow-Up Plan Elder Maltreatment Screen: <Negative, No Follow-Up Plan Required> [G8734]
[2019-09-21] MEDS ORDERED: DULOXETINE HCL 30 MG CAPSULE.DR PO SCH (15:00)
--- NOTE | 2019-09-21 16:42 | Physical Therapy Tx Note ---
Physical Therapy Tx Note - Treatment Note Physical Therapy Tx Note: Detail (Pt. not seen secondary to procedure.) Physical Therapy Problem List: Detail (1. Decreased lower extremity strength 2. Decreased endurance 3. Gait abnormalities 4. Decreased tolerance for stairs 5. Instability for dynamic tasks) Physical Therapy Goals: 1. Patient will be able to ascend and descend 3 stairs safely with supervision to get in and out of her home. 2. Patient will be able to ambulate 100 feet independently and safely to get around her home following discharge. 3. Patient's balance will be assessed using an objective balance outcome measure. 4. Patient will be independent and demonstrate good technique of HEP exercises to help increase and maintain LE strength. Physical Therapy Plan: The patient will be seen 1-2x a day, M-F, during her inpatient stay for gait training, stair training, balance exercises, HEP instruction, and therapeutic exercises and activities.
--- NOTE | 2019-09-21 17:14 | ULTRASOUND REPORT ---
EXAMINATION: Ultrasound Guided Paracentesis EXAM DATE: 09/21/2019 2:37 PM TECHNIQUE: Ultrasound Guided Paracentesis INDICATION: Ascites. COMPARISON: Previous abdominal ultrasound dated September 20, 2019. PROCEDURE: Risks, benefits, and alternatives were discussed with the patient who agreed to proceed. The right lo wer quadrant was prepped draped in usual sterile fashion. Using real-time ultrasound guidance, a 5 Fr ench catheter was inserted into the peritoneal cavity and 3150 mL serous peritoneal fluid were aspira kamran. The catheter was removed. There were no complications. Fluid was sent to the laboratory for cyto logic analysis. IMPRESSION: Uncomplicated ultrasound guided paracentesis. Dictated by: Morales Ocampo DO on 09/21/2019 5:11 PM. .
[2019-09-21] MEDS ORDERED: TRAZODONE 50 MG TABLET PO SCH (22:00)
[2019-09-22] MEDS ORDERED: FUROSEMIDE 40 MG TABLET PO SCH (10:00)
== END 2019-09-21 16:59 | disposition swing bed (61) | DRG 812 ==
LOC: ER 14:46 → MEDSURG 17:02 → OBSVTOIN 09-17 18:10
PROVIDERS: ADMIT Internal Medicine; ATTEND Internal Medicine
DX: D64.9 Anemia, unspecified (principal); K50.90 Crohn's disease, unspecified, without complications; R18.8 Other ascites; F32.9 Major depressive disorder, single episode, unspecified; R60.0 Localized edema; J44.9 Chronic obstructive pulmonary disease, unspecified; G47.9 Sleep disorder, unspecified; R60.9 Edema, unspecified; I10 Essential (primary) hypertension; E11.9 Type 2 diabetes mellitus without complications; Z79.84 Long term (current) use of oral hypoglycemic drugs; I87.2 Venous insufficiency (chronic) (peripheral); M19.90 Unspecified osteoarthritis, unspecified site; M79.7 Fibromyalgia; S31.000A Unspecified open wound of lower back and pelvis without penetration into retroperitoneum, initial encounter
CPT/HCPCS: 85025; 80048; 80053; 84484; 85379; 85027; 83880; 86900; 86901; 86850; 71045; 71275; 94640 ×2; 93005; 93010; 94760; G0378 ×7; P9016 ×2; Q9967; J3490; J1756; 36430; 49083; 76705; 93306; 94761; 99223; 99233; 99239; 99291; J1650; J1940; J7050